=== PATIENT | female | born 1955 | race Caucasian/White ===

== ENCOUNTER 2018-11-25 18:24 | Outpatient (REF) | payer OTHER, SELFPAY ==
--- NOTE | 2018-11-25 14:55 | PAPFT_PTH ---
PATIENT: Ligia Lara LOC: [facility] U#:[id number] AGE/SX: 63/F ROOM: RE11/25/[address]: Suzanne De Guzman V : 1955 BED: DIS: 11/25/2018 SPEC #: [id number] RECD: 11/26/18 13:10 STATUS: [place] REChris #: [id number] LOGAN: 11/25/18 14:[address]: Suzanne De Guzman V DEPT: [facility] Cytology RECD BY: Kiana Garvin Tissues: 1 - CX/ENDOCX FOR PAP SMEARS Procedures: PAP THIN PREP/UVM Screening HPV DNA PROBE Comments: [id number]
== END 2018-11-25 18:44 ==
LOC: NCHCN 18:24
PROVIDERS: PCP Family Medicine; Visit Provider Family Medicine
DX: Z12.4 Encounter for screening for malignant neoplasm of cervix (principal); Z11.51 Encounter for screening for human papillomavirus (HPV); Z01.419 Encounter for gynecological examination (general) (routine) without abnormal findings
CPT/HCPCS: 88142; 87624

== ENCOUNTER 2018-12-04 13:12 | Emergency (ER) | payer OTHER, SELFPAY ==
[2018-12-04 13:15] VITALS: BP 176/89; PULSE 83; RESP 18; TEMP 36.7; O2SAT 99
[2018-12-04 14:24] LABS: ALT 31 U/L (12-78); AST 42 U/L (15-37); Albumin 3.6 g/dL (3.4-5.0); Alkaline Phosphatase 81 U/L (46-116); Anion Gap 6.5 mmol/L (3-11); BUN 16 mg/dL (7-18); Bilirubin, Total 0.3 mg/dL (0.2-1.0); CO2 30.5 mmol/L (21.0-32.0); CREATININE 0.63 mg/dL (0.55-1.02); Calcium 8.9 mg/dL (8.5-10.1); Chloride 102 mmol/L (98-107); Glucose 88 mg/dL (70-100); Magnesium 1.9 mg/dL (1.8-2.4); Potassium 3.9 mmol/L (3.5-5.1); Sodium 139 mmol/L (136-145); Total Protein 7.5 g/dL (6.4-8.2); Troponin I 0.03 ng/mL (0.00-0.06)
[2018-12-04] MEDS: Meclizine 25 MG TAB PO ×2 (14:27→18:29)
--- NOTE | 2018-12-04 14:27 | ED.GENADUL_ITS ---
Discharge Plan Disposition Patient Disposition: HOME Condition: Stable Discharge Details Chief Complaint: Dizzy/Sync Clinical Impression: Benign paroxysmal positional vertigo Primary Care Provider: Suzanne De Guzman V ED Provider: Gino Byers Home Meds and New Rx's Prescriptions: New meclizine 25 mg tablet 25 mg PO Q8H PRN PRN (Reason: dizziness) Qty: 20 RF: 0 Continued montelukast 10 MG tablet 10 mg PO DAILY RF: 0 albuterol sulfate [Ventolin HFA] 8 GM HFA aerosol inhaler 1 - 2 puff Inhalation Q4H PRN RF: 0 venlafaxine 75 MG tablet extended release 24hr 37.5 mg PO DAILY RF: 0 amlodipine 5 MG tablet 5 mg PO DAILY RF: 0 multivitamin 1 EACH capsule 1 ea PO DAILY RF: 0 calcium citrate-vitamin D3 [Citracal + D Maximum] 1 EACH tablet 1 ea PO DAILY RF: 0 Discharge Instructions Instructions: Benign Paroxysmal Positional Vertigo (ED), Dizziness (ED) Additional Instructions: Please take your normally prescribed medication along with new medication as needed and be careful with any driving or operating equipment during dizzy spells. Feel free to return to the emergency department for any new or worsen ing symptoms, persistent symptoms, or change in your symptoms. Follow-up with your primary care provider next week for reassessment and further testing as needed Stand Alone Forms: Physical Therapy Referral Referrals: Suzanne De Guzman MD [Primary Care Provider] - 1 week (for reassessment) Discharge Data Discharge Date/Time-TO BE ENTERED AT DEPARTURE: 12/04/18 18:29 Medical Decision Making <Gino Byers NP - Last Filed: 12/05/18 10:57> Patient presenting to the emergency department for chief complaint of dizziness. Patient states that she has been getting these spells for a while now and they seem to happen after a upper respiratory tract infectious. Patient states that she had a URI approximately a week or so ago and then today while shopping she started to become dizzy. She does state that the symptoms in the past have lasted a couple hours and she mentioned this to her primary care provider who recommended she come to the emergency department when she gets 1 of these spells. Patient states some associated nausea and diaphoresis with these episodes. She denies any chest pain, palpitations, or irregular heartbeat but does state some sensation of movement when these occur. Physical exam shows positive Ironwood-Hallpike with horizontal nystagmus to the left along with hints exam showing positive for test of skew also to the left. Remaining exam is unremarkable for any cardiac, respiratory, or neurological findings. Given patient's stated diaphoresis and dizziness rule out of ACS I feel is warranted but more suspicious of vertigo secondary to inner ear problem. Patient given meclizine pending results. EKG was reviewed with attending physician. Review of old EKG does show T wave inversion in V1 with no inversion in V2. Review of labs is non-diagonal and troponin showing 0.03. This is within normal limits but given that patient does have EKG changes plan on doing second troponin in 3 hours. Patient was agreeable to this plan of care patient reassessed and states no further symptoms of vertigo/dizziness. Further discussion of patient's condition states that she describes dizziness sensation as being on a boat or ship with some loss of balance. Patient was able to ambulate through the emergency department unassisted with no further symptoms. Remainder of labs were reviewed and are nondiagnostic. Review of repeat troponin shows no change. Patient continues to state that she is asymptomatic and has improved significantly. Patient prescribed meclizine and instructed on use. Patient given referral to physical therapy for education on Chiki's maneuver. Given that we were able to obtain EKG during patient's report of dizziness I do not feel that a Holter monitor is required at this time given nondiagnostic findings of EKG during episode. Return precautions were discussed. After discussion of diagnosis and plan of care patient has no further needs, questions, or concerns and states clear understanding to return to the emergency department for any worsening symptoms. <Carlos Roa DO - Last Filed: 12/05/18 07:56> ECG Data Interpretation: EKG 14: 17 Rate 62, intervals normal, sinus rhythm, T wave inversion in V1 and V2, no significant ST elevation, no Q waves, HPI <Gino Byers NP - Last Filed: 12/05/18 10:57> General Mode of arrival: ambulatory . Date/Time Provider Initiated Documentation: 12/04/18 13:18 . Limitations to Documentation: no limitations . Information obtained by: patient and RN notes reviewed . History of Present Illness 63 year old F presents to the emergency department with the chief complaint of dizziness, described as similar to prior episodes, Quality is described as other (denies pain), Patient started experiencing this hour(s) (2) and it has been intermittent. Movement worsens symptoms . Patient did receive the following treatments prior to arrival, none Related Data Home Medications Medication Instructions Recorded Confirmed albuterol sulfate [Ventolin HFA] 1 - 2 puff INHALATION Q4H PRN puff 03/08/13 12/04/18 montelukast 10 mg PO DAILY tab-cap 03/08/13 12/04/18 venlafaxine 37.5 mg PO DAILY tab-cap 03/08/13 12/04/18 amlodipine 5 mg PO DAILY 09/19/13 12/04/18 calcium citrate-vitamin D3 1 ea PO DAILY 12/12/13 12/04/18 [Citracal + D Maximum] multivitamin 1 ea PO DAILY 12/12/13 12/04/18 meclizine 25 mg PO Q8H PRN PRN #20 tab 12/04/18 Previous Rx's Medication Instructions Recorded meclizine 25 mg PO Q8H PRN PRN #20 tab 12/04/18 Allergies Allergy/AdvReac Type Severity Reaction Status Date / Time Penicillins Allergy Unknown Unverified 12/04/18 13:19 lisinopril AdvReac Intermediate COUGH Unverified 12/04/18 13:19 General Stated Complaint: Dizzy/Sync RHYS: 3 Review of Systems <Gino Byers NP - Last Filed: 12/05/18 10:57> Constitutional Denies chills, Denies fever(s), Denies headache(s) and Denies malaise Eyes Denies loss of vision ENT Reports dizziness, Denies headache(s) and Reports nasal congestion Cardiovascular Reports as per HPI, Denies chest pain, Denies chest pain with activity, Reports diaphoresis, Denies syncope, Denies irregular heart rhythm, Denies lightheadedness, Denies palpitations and Denies dyspnea Respiratory Denies cough, Denies hemoptysis and Denies dyspnea Gastrointestinal Denies abdominal pain, Reports nausea and Denies vomiting Neurologic Denies confusion, Reports dizziness, Denies syncope, Denies headache(s) and Denies loss of vision Psychiatric Denies anxiety and Denies confusion Endocrine Denies cold intolerance, Denies heat intolerance and Denies palpitations PFSH <Gino Byers NP - Last Filed: 12/05/18 10:57> Medical History Anxiety disorder BREAST CA (~1998) DIVERTICULOSIS Surgical History Breast, Mastectomy Bilateral (~1999) Colonoscopy - MAC (11/26/16) Oophrectomy, Both Family History Father Personal history of malignant neoplasm Sister Personal history of malignant neoplasm Grandmother Personal history of malignant neoplasm Mother Hypertensive disorder, systemic arterial Personal history of malignant neoplasm Social History Smoking and Tabacco status: Former Tobacco Use Exam <Gino Byers NP - Last Filed: 12/05/18 10:57> Const General: cooperative, healthy appearing, comfortable, no acute distress, not diaphoretic and not ill appearing Nutritional Appearance: average body habitus Orientation: alert, awake and oriented x3 Limitations: mental status not altered HENMT Head: normal to inspection, normocephalic and atraumatic Ears: hearing grossly normal bilaterally, external ears normal and TM's normal bilaterally Eyes Visual Urias: normal visual urias by confrontation Alignment and Position: alignment normal Periorbital: periorbital findings normal Eyelids: eyelids normal Conjunctivae: conjunctivae normal Sclera: sclerae normal Cornea: corneas normal Pupils: PERRL EOM: EOM intact bilaterally and nystagmus Neck Neck: normal visual inspection, full ROM, trachea midline, supple and no anterior neck swelling Thyroid: thyroid normal Carotids: normal carotid upstroke and no bruits Chest Chest: normal inspection of the chest Resp Effort & Inspection: normal respiratory effort and able to speak in complete sentences Auscultation: clear to auscultation bilaterally Cardio Jugular venous pressure: no JVD Palpation: normal PMI Rate: regular rate Rhythm: regular rhythm Heart Sounds: S1 normal, S2 normal, no click, no gallops, no murmurs and no rubs Bruits: no abdominal aortic bruits and no carotid bruits Pulses: radial pulses present bilaterally 2+ GI Inspection: normal to inspection Palpation: soft, no aortic enlargement, no pulsatile masses and nontender Auscultation: normal bowel sounds Skin General skin exam: no rashes or lesions noted Neuro General: alert, awake, oriented x3, tone normal, moves all extremities, no meningeal signs and no focal motor deficits Cranial Nerves: nystagmus horizontal fast component to the left and with left lateral gaze Cognition: normal cognition Speech: speech normal Gait: normal gait and not ataxic Motor: muscle tone normal throughout Sensory Exam: no sensory deficits noted Course <Gino Byers NP - Last Filed: 12/05/18 10:57> Vital Signs Temperature 36.7 C 12/04/18 13:15 Pulse 83 12/04/18 13:15 Respiratory Rate 18 12/04/18 13:15 Blood Pressure 176/89 H 12/04/18 13:15 Pulse Oximetry 99 12/04/18 13:15 Temperature 36.7 C 12/04/18 13:15 Temperature Source Skin 12/04/18 13:15 Pulse 83 12/04/18 13:15 Respiratory Rate 18 12/04/18 13:15 Respiratory Effort Non-Labored 12/04/18 13:18 Blood Pressure 176/89 H 12/04/18 13:15 Pulse Oximetry 99 12/04/18 13:15 Pain Level 0 12/04/18 13:15
[2018-12-04 14:28] VITALS: RESP 16
[2018-12-04 14:31] LABS: Abs Immature Grans 0.02 k/cumm (0.0-0.09); Absolute Basophil Count 0.03 k/cumm (0.0-0.2); Absolute Lymphocyte Count 2.94 k/cumm (1.2-3.4); Absolute Monocyte Count 0.72 k/cumm (0.11-0.7); Absolute Neutrophil Count 3.88 k/cumm (1.2-6.7); Basophils % 0.4; Eosinophils % 2.6; HCT 35.7 % (36.0-46.0); Immature Grans % 0.3; Lymphocytes % 37.7; Mean Corp. HGB Concentration 33.6 g/dL (32.0-36.0); Mean Corpuscular Hemoglobin 27.6 pg (27.0-33.0); Mean Corpuscular Volume 82.3 fL (80-95); Monocytes % 9.2; Neutrophils % 49.8; Platelet Count 269 x1000/uL (130-400); RBC 4.34 m/cumm (4.00-5.20); RBC Distribution Width 13.4 % (11.7-14.6); White Blood Cell Count 7.79 k/cumm (4.4-10.8)
[2018-12-04 17:12] LABS: Troponin I 0.03 ng/mL (0.00-0.06)
[2018-12-04 18:24] VITALS: BP 136/76; PULSE 61; RESP 16; TEMP 36.6; O2SAT 96
[2018-12-04 18:30] VITALS: BP 136/76; PULSE 61; RESP 16; TEMP 36.6; O2SAT 96
--- NOTE | 2018-12-06 08:55 | PDOC.ERCMPRO ---
Care Management Progress Note 12/04-Jeff SENA requested assistance with a PCP (Gege) f/u in one week for dizziness/vertigo. Referral faxed to [facility] this am.
== END 2018-12-04 18:29 | disposition home or self-care (01) ==
PROVIDERS: Emergency Provider Nurse Practitioner Family; PCP Family Medicine
DX: H81.10 Benign paroxysmal vertigo, unspecified ear (principal); R11.2 Nausea with vomiting, unspecified; I10 Essential (primary) hypertension
CPT/HCPCS: 36415; 80053; 93005; 99283; 83735; 84484; 85025; 93010

== ENCOUNTER 2018-12-14 13:30 | Outpatient (CLI) | payer OTHER, SELFPAY ==
--- NOTE | 2019-01-12 09:03 | CER_ITS ---
PREVENTICE MONITOR DEVICE INTERPRETATION DATE OF DICTATION January 12, 2019 INDICATION Dizziness. REQUESTING PROVIDER Suzanne De Guzman M.D. FINDINGS Monitoring period 30 days. Only 9 days and 21 hours of data available for review. Last echo: Last stress test: Last cardiac catheterization: Last lipid profile: Available for interpretation. The baseline sinus rhythm. Average heart rate 78 beats per minute, range 58 to 105 beats per minute. No tachyc- or bradycarrhythmias There were no patient events. FINAL INTERPRETATION Normal study. Toro Funez M.D. NINA/reyna T - 01/12/2019
== END 2018-12-14 13:50 ==
PROVIDERS: PCP Family Medicine; Visit Provider Specialist/Technologist Athletic Trainer
DX: R42 Dizziness and giddiness (principal)
CPT/HCPCS: 93270

== ENCOUNTER 2019-05-25 13:27 | Emergency (ER) | payer OTHER, SELFPAY ==
[2019-05-25] VITALS (33 sets, daily range): BP systolic 127–165; BP diastolic 61–114; PULSE 67–86; RESP 12–23; TEMP 36.5; O2SAT 95–99
--- NOTE | 2019-05-25 13:43 | DI.RAD_ITS ---
SYMPTOMS/DIAGNOSIS: DIZZINESS, ? ACUTE DISEASE PA AND LATERAL CHEST: The heart is normal in size. The lungs are clear. The mediastinal structures and pleura appear intact. CONCLUSION: Normal chest.
--- NOTE | 2019-05-25 13:45 | W.ED.GENAD ---
Discharge Plan Disposition Patient Disposition: HOME Condition: Improving Discharge Details Chief Complaint: Dizzy/Sync Clinical Impression: Vertigo, Nausea and vomiting Primary Care Provider: Suzanne De Guzman V ED Provider: Maria Esther Jones Home Meds and New Rx's Prescriptions: New ondansetron HCl [Zofran] 4 mg tablet 4 mg PO Q8H PRN (Reason: nausea and vomiting) Qty: 7 RF: 0 meclizine 12.5 mg tablet 12.5 mg PO TID PRN (Reason: dizziness) Qty: 10 RF: 0 Continued montelukast 10 MG tablet 10 mg PO DAILY RF: 0 albuterol sulfate [Ventolin HFA] 8 GM HFA aerosol inhaler 1 - 2 puff Inhalation Q4H PRN RF: 0 venlafaxine 75 MG tablet extended release 24hr 37.5 mg PO DAILY RF: 0 amlodipine 5 MG tablet 5 mg PO DAILY RF: 0 multivitamin 1 EACH capsule 1 ea PO DAILY RF: 0 calcium citrate-vitamin D3 [Citracal + D Maximum] 1 EACH tablet 1 ea PO DAILY RF: 0 meclizine 25 mg tablet 25 mg PO Q8H PRN PRN (Reason: dizziness) Qty: 20 RF: 0 Discharge Instructions Instructions: Vertigo (ED), Acute Nausea and Vomiting (ED) Additional Instructions: Drink plenty of fluids and get plenty of rest. Take the Zofran as needed and directed for any nausea or vomiting. Take the meclizine as needed and directed for dizziness. Follow-up with your primary care doctor for reevaluation. Return to the emergency department if you develop any worsening or new concerning symptoms. Discharge Data Discharge Physician: Maria Esther Jones Medical Decision Making [id number] --63-year-old female with a history of vertigo, breast cancer with bilateral mastectomy and lateral who nephrectomy who presents with spinning sensation and vomiting that started this morning and is worse with any head or body movement. EKG on arrival notes a rate of 79, sinus with T wave inversion in V2 which is seen in previous EKG and no acute ST ischemic changes and no acute change compared to EKG December 2018. Normal ENT exam. No focal deficits. Patient given IV fluids and Zofran on arrival and appears improved. Still complaining of some dizziness. Will give a dose of meclizine continue IV fluids do p.o. challenge and reassess. Differential diagnosis includes vertigo, dehydration, electrolyte abnormality. She denies any chest pain or shortness of breath so doubt ACS or arrhythmia. She has no focal deficits, complaint of visual changes or headache, so doubt central process. 1600 --labs and imaging reviewed and unremarkable. Normal white blood cell count. Normal electrolytes. Troponin negative. Urinalysis notes blood but no infection. Chest x-ray negative. Patient feels much better and is requesting to go home. She denies any complaint of nausea or dizziness. Discussed with patient that her presentation appears consistent with vertigo. Do not see an indication for any CT head imaging but she was offered to this but declined. She is advised to drink plenty of fluids, get plenty of rest. She is advised to follow-up with her primary care doctor for reevaluation and to return here anytime if worse. Medical Records Medical records reviewed: Yes I reviewed the patient's medical records. Imaging Data Radiologic Study: Radiologist's impression: PA AND LATERAL CHEST: The heart is normal in size. The lungs are clear. The mediastinal structures and pleura appear intact. CONCLUSION: Normal chest. Lab Data Lab results reviewed: Yes I reviewed the patient's lab results. Laboratory Tests Range/Units 05/25/19 05/25/19 05/25/19 14:05 14:14 14:14 WBC (4.4-10.8) k/cumm 10.29 RBC (4.00-5.20) m/cumm 4.45 Hgb (12.0-15.5) g/dL 12.5 Hct (36.0-46.0) % 36.9 MCV (80-95) fL 82.9 MCH (27.0-33.0) pg 28.1 MCHC (32.0-36.0) g/dL 33.9 RDW (11.7-14.6) % 13.3 Plt Count (130-400) x1000/uL 300 MPV (8.0-11.0) fL 10.3 Immature Gran % 0.2 Neutrophils % 51.0 Lymphocytes % 38.2 Monocytes % 8.6 Eosinophils % 1.7 Basophils % 0.3 Absolute Neutrophils (1.2-6.7) k/cumm 5.26 Absolute Lymphocytes (1.2-3.4) k/cumm 3.93 H Absolute Monocytes (0.11-0.7) k/cumm 0.88 H Absolute Eosinophils (0.0-0.7) k/cumm 0.17 Absolute Basophils (0.0-0.2) k/cumm 0.03 Sodium (136-145) mmol/L 136 Potassium (3.5-5.1) mmol/L 3.8 Chloride (98-107) mmol/L 101 Carbon Dioxide (21.0-32.0) mmol/L 23.1 Anion Gap (3-11) mmol/L 11.9 H BUN (7-18) mg/dL 20 H Creatinine (0.55-1.02) mg/dL 0.78 Estimated GFR/1.73 m2 (mL/min/1.73m2) >= 60.00 Glucose (70-100) mg/dL 95 Calcium (8.5-10.1) mg/dL 9.0 Magnesium (1.8-2.4) mg/dL 1.9 Total Bilirubin (0.2-1.0) mg/dL 0.4 AST (15-37) U/L 26 ALT (12-78) U/L 29 Alkaline Phosphatase (46-116) U/L 85 Troponin I (0.00-0.06) ng/mL < 0.05 Total Protein (6.4-8.2) g/dL 8.0 Albumin (3.4-5.0) g/dL 4.0 Urine Color (Yellow) Yellow Urine Clarity (Clear) Clear Urine pH (5-8) 5.5 Ur Specific [place] (1.005-1.025) 1.025 Urine Protein (Negative) mg/dL Negative Urine Ketones (Negative) mg/dL Negative Urine Blood (Negative) Moderate H Urine Nitrite (Negative) Negative Urine Bilirubin (Negative) Negative Urine Urobilinogen (Up TO 0.2) EU/dL 0.2 Ur Leukocyte Esterase (Negative) Negative Urine RBC (0-2) 10-20 H Urine WBC (0-5) HPF 0-2 Ur Epithelial Cells (Negative) HPF Moderate Urine Crystals (Negative) HPF Negative Urine Bacteria (Negative) HPF Rare Urine Casts (Negative) LPF Negative Urine Mucus (Negative) Trace Ur Culture Indicated? No/sq. contamination Urine Glucose (Negative) mg/dL Negative ECG Data Attestation: I personally reviewed and interpreted this ECG (s) as follows: Interpretation: Rate of 79, sinus, T wave inversion in V2. There is no acute ST elevation or depression. There is no acute change compared to old EKG December 2018. [place] 168. QTc 481. HPI General Mode of arrival: ambulatory. Date/Time Provider Initiated Documentation: 05/25/19 13:42. Limitations to Documentation: no limitations. Information obtained by: patient. HPI Narrative: Patient is a 61-year-old female with a history of vertigo who presents with dizziness and spinning sensation that started today while standing and talking at work. 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 She states the symptoms are worse with any movement of her body or head. She states after this she ate lunch and then sat down and vomited twice which consisted of food. She states she had a similar episode to this in December for which she was seen in the emergency department and given meclizine as well as a prescription and felt much better was discharged home. She denies any fever, headache, visual changes, chest pain, shortness of breath, abdominal pain, urinary symptoms or unilateral numbness or weakness. Related Data Home Medications Medication Instructions Recorded Confirmed albuterol sulfate [Ventolin HFA] 1 - 2 puff INHALATION Q4H PRN puff 03/08/13 05/25/19 montelukast 10 mg PO DAILY tab-cap 03/08/13 05/25/19 venlafaxine 37.5 mg PO DAILY tab-cap 03/08/13 05/25/19 amlodipine 5 mg PO DAILY 09/19/13 05/25/19 calcium citrate-vitamin D3 1 ea PO DAILY 12/12/13 05/25/19 [Citracal + D Maximum] multivitamin 1 ea PO DAILY 12/12/13 05/25/19 meclizine 25 mg PO Q8H PRN PRN #20 tab 12/04/18 05/25/19 meclizine 12.5 mg PO TID PRN #10 tab 05/25/19 ondansetron HCl [Zofran] 4 mg PO Q8H PRN #7 tab 05/25/19 Previous Rx's Medication Instructions Recorded meclizine 25 mg PO Q8H PRN PRN #20 tab 12/04/18 meclizine 12.5 mg PO TID PRN #10 tab 05/25/19 ondansetron HCl [Zofran] 4 mg PO Q8H PRN #7 tab 05/25/19 Allergies Allergy/AdvReac Type Severity Reaction Status Date / Time Penicillins Allergy Unknown Unverified 05/25/19 13:39 lisinopril AdvReac Intermediate COUGH Unverified 05/25/19 13:39 General Stated Complaint: Dizzy/Sync RHYS: 2 Review of Systems Review of Systems All systems reviewed & are unremarkable except as noted in HPI and below Constitutional Reports as per HPI, Denies chills and Denies fever(s) Eyes Denies blurry vision ENT Reports dizziness, Denies sore throat and Denies throat swelling Cardiovascular Denies chest pain and Denies dyspnea Respiratory Denies cough and Denies dyspnea Gastrointestinal Denies abdominal pain, Denies diarrhea and Reports vomiting Genitourinary Denies hematuria and Denies dysuria Musculoskeletal Denies back pain and Denies numbness Integumentary/Breasts Denies lesions and Denies rash Neurologic Reports dizziness, Denies focal weakness and Denies numbness Allergic/Immunologic Denies throat swelling PFSH Medical History Anxiety disorder BREAST CA (~1998) DIVERTICULOSIS Surgical History Breast, Mastectomy Bilateral (~1999) Colonoscopy - MAC (11/26/16) Oophrectomy, Both Family History Father Personal history of malignant neoplasm Sister Personal history of malignant neoplasm Grandmother Personal history of malignant neoplasm Mother Hypertensive disorder, systemic arterial Personal history of malignant neoplasm Social History Smoking/Tobacco Use Status: Former Tobacco Use Alcohol Intake: never Drug use: Never Do you feel safe at home: Yes Do you feel safe in your relationship?: Yes Exam Const General: cooperative and healthy appearing Orientation: alert and awake HENMT Head: normal to inspection Ears: hearing grossly normal bilaterally, external ears normal and TM's normal bilaterally General nose exam: external nose normal Face and sinus: normal facial exam Mouth: oral mucosae normal Teeth and gingiva: dentition normal Throat: posterior oropharynx normal Eyes General: appearance normal, both eyes and all related structures Eyelids: eyelids normal Pupils: PERRL EOM: EOM intact bilaterally Neck Neck: normal visual inspection Lymphatic: no lymphadenopathy noted Chest Chest: normal inspection of the chest Resp Effort & Inspection: normal respiratory effort and able to speak in complete sentences Auscultation: clear to auscultation bilaterally Cardio Rate: regular rate Rhythm: regular rhythm GI Inspection: normal to inspection Palpation: soft, not firm, no guarding, no hepatosplenomegaly, no masses and nontender Auscultation: normal bowel sounds Back/Spine/Pelvis Back: no CVA tenderness Skin General skin exam: no rashes or lesions noted Neuro General: alert, awake, oriented x3 and gait normal Cranial Nerves: CN's II-XI intact bilaterally Cognition: normal cognition Speech: speech normal Gait: normal gait Motor: muscle tone normal throughout and strength 5/5 throughout Sensory Exam: no sensory deficits noted Extrem General: normal to inspection, full ROM and normal capillary refill Psych Appearance: grossly normal Mental Status: mental status grossly normal Speech and Movement: speech and movement normal Affect: normal affect Thought Process: normal Course Vital Signs Temperature 97.7 F 05/25/19 13:31 Pulse 86 05/25/19 13:31 Respiratory Rate 14 05/25/19 13:31 Blood Pressure 165/79 H 05/25/19 13:31 Pulse Oximetry 96 05/25/19 13:31 Temperature 97.7 F 05/25/19 13:31 Temperature Source Skin 05/25/19 13:31 Pulse 86 05/25/19 13:31 Respiratory Rate 14 05/25/19 13:31 Respiratory Effort 05/25/19 13:36 Blood Pressure 165/79 H 05/25/19 13:31 Pulse Oximetry 96 05/25/19 13:31 Oxygen Delivery Method Room Air 05/25/19 13:31 Oxygen Flow Rate 0 05/25/19 13:31 Pain Level 0 05/25/19 13:31
[2019-05-25] MEDS: Normal Saline 1,000 ML 1000 ML IV ×2 (14:05→14:48)
[2019-05-25 14:10] LABS: Bilirubin Negative (Negative); Blood Moderate (Negative); Clarity Clear (Clear); Glucose Negative (Negative); Ketones Negative (Negative); Leukocyte Esterase Negative (Negative); Nitrite Negative (Negative); Specific Gravity 1.025 (1.005-1.025); Urobilinogen 0.2 EU/dL (Up TO 0.2); pH 5.5 (5-8)
[2019-05-25] MEDS: Ondansetron 4 MG/2 ML VIAL (14:10)
[2019-05-25 14:22] LABS: Abs Immature Grans 0.02 k/cumm (0.0-0.09); Absolute Basophil Count 0.03 k/cumm (0.0-0.2); Absolute Eosinophil Count 0.17 k/cumm (0.0-0.7); Absolute Lymphocyte Count 3.93 k/cumm (1.2-3.4); Absolute Monocyte Count 0.88 k/cumm (0.11-0.7); Absolute Neutrophil Count 5.26 k/cumm (1.2-6.7); Basophils % 0.3; Eosinophils % 1.7; HCT 36.9 % (36.0-46.0); HGB 12.5 g/dL (12.0-15.5); Immature Grans % 0.2; Lymphocytes % 38.2; Mean Corp. HGB Concentration 33.9 g/dL (32.0-36.0); Mean Corpuscular Hemoglobin 28.1 pg (27.0-33.0); Mean Corpuscular Volume 82.9 fL (80-95); Mean Platelet Volume 10.3 fL (8.0-11.0); Monocytes % 8.6; Platelet Count 300 x1000/uL (130-400); RBC 4.45 m/cumm (4.00-5.20); RBC Distribution Width 13.3 % (11.7-14.6); White Blood Cell Count 10.29 k/cumm (4.4-10.8)
[2019-05-25 14:22] LABS: Bacteria Rare HPF (Negative); C & S Indicated? No/Sq. Contamination; Casts Negative LPF (Negative); Crystals Negative HPF (Negative); Epithelial Cells Moderate HPF (Negative); Mucus Trace (Negative); WBC 0-2 HPF (0-5)
[2019-05-25 14:41] LABS: ALT 29 U/L (12-78); AST 26 U/L (15-37); Alkaline Phosphatase 85 U/L (46-116); Anion Gap 11.9 mmol/L (3-11); BUN 20 mg/dL (7-18); Bilirubin, Total 0.4 mg/dL (0.2-1.0); CO2 23.1 mmol/L (21.0-32.0); CREATININE 0.78 mg/dL (0.55-1.02); Chloride 101 mmol/L (98-107); Glucose 95 mg/dL (70-100); Magnesium 1.9 mg/dL (1.8-2.4); Potassium 3.8 mmol/L (3.5-5.1); Sodium 136 mmol/L (136-145)
[2019-05-25 14:47] LABS: Troponin I < 0.05 ng/mL (0.00-0.06)
[2019-05-25] MEDS: Meclizine 25 MG TAB PO (14:48)
== END 2019-05-25 16:42 | disposition home or self-care (01) ==
PROVIDERS: Emergency Provider Physician Assistant; PCP Family Medicine
DX: R42 Dizziness and giddiness (principal); R11.2 Nausea with vomiting, unspecified
CPT/HCPCS: 36415; 36416; 80053; 82962; 93005; 96361; 96374; 99285; 71046; 81003; 81015; 83735; 84484; 85025; 93010; 99284; J2405

== ENCOUNTER 2019-09-08 17:22 | Outpatient (REF) | payer OTHER, SELFPAY ==
--- NOTE | 2019-09-08 15:44 | UVULA_PTH ---
PATIENT: Ligia Lara LOC: [facility] U#:[id number] AGE/SX: 64/F ROOM: RE09/08/[address]: Dalton Love MD : 1955 BED: DIS: 09/08/2019 SPEC #: [id number] RECD: 09/08/19 18:32 STATUS: [place] REQ #: [id number] LOGAN: 09/08/19 15:[address]: Dalton Love DEPT: Surgical Specimen RECD BY: Kiana Garvin ENTERED: 09/08/19 18:32 SP TYPE: UVULA OTHR DR: Suzanne De Guzman V Tissues: 1 - UVULA Procedures: GROSS AND MICRO LEVEL 3 Comments: [id number]
== END 2019-09-08 17:42 ==
LOC: LBN 17:22
PROVIDERS: PCP Family Medicine; Visit Provider Otolaryngology
DX: D10.39 Benign neoplasm of other parts of mouth (principal)
CPT/HCPCS: 88304

== ENCOUNTER 2021-07-22 02:57 | Outpatient (CLI) | payer OTHER, SELFPAY ==
[2021-07-22 07:38] LABS: HCT 37.6 % (36.0-46.0); HGB 12.3 g/dL (11.2-15.7); MCH 27.8 pg (27.0-33.0); MCHC 32.7 % (32.0-36.0); MCV 85.1 fL (80-95); MPV 9.6 fL (8.0-11.0); Platelet Count 244 10^3/uL (130-400); RBC 4.42 10^6/uL (3.93-5.22); RDW 12.8 % (11.7-14.6); RDW-SD 39.8 fL; WBC 6.74 10^3/uL (4.4-10.8)
[2021-07-22 08:38] LABS: ALT 27 U/L (14-59); AST 21 U/L (15-37); Albumin 3.5 g/dL (3.4-5.0); Alkaline Phosphatase 80 U/L (46-116); Anion Gap 8.3 mmol/L (3-11); BUN 22 mg/dL (7-18); Bilirubin, Total 0.3 mg/dL (0.2-1.0); CO2 25.7 mmol/L (21.0-32.0); CREATININE 0.7 mg/dL (0.55-1.02); Calcium 8.9 mg/dL (8.5-10.1); Calculated LDL 115 mg/dL (<100); Chloride 107 mmol/L (98-107); Cholesterol 173 mg/dL (<200); Glucose 92 mg/dL (74-106); HDL Cholesterol 47 mg/dL (40-60); Potassium 4.8 mmol/L (3.5-5.1); Sodium 141 mmol/L (136-145); Total Protein 6.7 g/dL (6.4-8.2); Triglyceride 55 mg/dL (<150)
== END 2021-07-22 02:58 | disposition home or self-care (01) ==
LOC: LBO 02:57
PROVIDERS: PCP Family Medicine; Visit Provider Family Medicine
DX: Z00.00 Encounter for general adult medical examination without abnormal findings (principal); I10 Essential (primary) hypertension
CPT/HCPCS: 36415; 80053; 80061; 85027

== ENCOUNTER 2021-07-25 02:06 | Outpatient (CLI) | payer OTHER, SELFPAY ==
--- NOTE | 2021-07-25 | DI.DEXA_ITS ---
Exam(s) XR DEXA BONE DENSITY W/WO RAFIQ EXAM: XR DEXA BONE DENSITY W/WO RAFIQ CLINICAL HISTORY: SCREENING FOR OSTEOPOROSIS, [facility],Z00.00,Z78.0 TECHNIQUE: Routine DEXA evaluation of the lumbar spine, hip, or forearm. COMPARISON: Prior DXA scans reviewed, most recent being December 2015 FINDINGS: Performed on a HoloAQS unit. Lateral image: No compression fracture evident. Lumbar Spine total T-score: -0.6 . Prior 2016 reading was -0.7 Hip total T-score:-0.4. Prior 2016 reading was -0.3 Independent reading at the level of the femoral neck yields at T-score of -0.6. Forearm total T-score: IMPRESSION: Bone mineral density measures in the normal range. Fracture risk is low. Note: Any spine fracture indicates 5x risk for subsequent spine fracture and 2x risk for subsequent h ip fracture. World Health Organization criteria for BMD interpretation classify patients: Normal...... T- Score at or above -1.0 Osteopenic... T- Score between -1.0 and -2.5 Osteoporosis... T-Score at or below -2.5
== END 2021-07-25 02:26 ==
PROVIDERS: PCP Family Medicine; Visit Provider Family Medicine
DX: Z00.00 Encounter for general adult medical examination without abnormal findings (principal); Z13.820 Encounter for screening for osteoporosis; Z78.0 Asymptomatic menopausal state
CPT/HCPCS: 77080

== ENCOUNTER 2021-12-27 03:17 | Outpatient (CLI) | payer OTHER, SELFPAY ==
[2021-12-27 11:48] LABS: Source Nasal/Nares
[2021-12-27 14:25] LABS: COVID-19 PCR Negative (Negative)
== END 2021-12-27 03:18 | disposition home or self-care (01) ==
LOC: LBO 03:17
PROVIDERS: PCP Family Medicine; Visit Provider Surgery
DX: Z20.822 Contact with and (suspected) exposure to COVID-19 (principal)
CPT/HCPCS: 87635

== ENCOUNTER 2021-12-30 06:58 | Day surgery (SDC) | payer OTHER, SELFPAY ==
--- NOTE | 2021-12-30 06:54 | W.COLOREPORT ---
Colonoscopy Report Date of procedure: 12/30/21 Pre-op diagnosis general: Colon Cancer Screening and Hx of colon polyps Post-op diagnosis procedure note: same (polyps and mild mcintyre-diverticulosis) Procedure: Colonoscopy with polypectomy Surgeon: Cherry Rojas Anesthesia Type: General:No Airway Estimated blood loss (mL): 3 Pathology: other (Transverse polyp, rectal polyps x3) Complications: None Disposition: same day Indications: The patient is here for Colonoscopy pre-op. Her last screening was in 2017 and was remarkable for tubular adenoma. She has no family history of colon cancer. She has not had any bowel habit changes. -Discussed colonoscopy bowel prep as well as the procedure. Discussed possible complications of the procedure to include bleeding, pain, perforation, missed small lesion/polyp, sore throat, aspiration and adverse reaction to the medications. Questions were answered to patient?s satisfaction. No guarantees were implied or given.? Prep: Miralax/Dulcolax Procedure Start Time: 08:12 Procedure End Time: 08:42 Retraction Time: 20 minutes Findings: 4 small sessile polyps mild mcintyre-diverticulosis Procedure Description: After informed consent was obtained the patient was taken to the procedure room and placed in a left decubitous position. Monitors were applied and a time out was done. The patients name, date of , procedure, allergies to medications and metal in their body was reviewed. The patient was then sedated. Once sedated and comfortable a rectal exam was done. External exam was normal. Internal exam revealed a normal sphincter tone and no palpable masses. The scope was then introduced and retro-flexed. No internal hemorrhoids, polyps or masses were identified on retro-flexion. The scope was then advanced to the cecum without difficulty. The ileocecal vlave and appendiceal orifice were identified. The prep was adequate. The scope was then slowly retracted over 20 minutes back into the rectum. Polyps were removed with cold forceps in the Transverse colon, and rectum x3. There was mild mcintyre-diverticulosis noted. The scope was removed and the patient was woken up and taken back to Same day surgery in stable condition. The patient tolerated the procedure well and there were no immediate complications. Follow up: The patient should follow up in 5 years unless they develop changes in bowel habits or other new gastrointestinal complaints.
--- NOTE | 2021-12-30 06:58 | W.PM.DSUDISC ---
Discharge Plan Disposition Patient Disposition: HOME Condition: Good Discharge Details Reason For Visit: Colonoscopy Attending Provider: Cherry Rojas Primary Care Provider: Suzanne De Guzman V Home Meds and New Rx's Prescriptions: Continued clobetasol [Temovate] 0.05 % ointment 1 applic topical BID 14 Days Qty: 60 1RF albuterol sulfate [Ventolin HFA] 8 GM HFA aerosol inhaler 1 - 2 puff Inhalation Q4H PRN 0RF Label Comments: pt has not used in a while 08/22/16 venlafaxine 75 mg tablet extended release 24hr 75 mg PO HS 0RF montelukast 10 mg tablet 10 mg PO HS Qty: 90 4RF amlodipine 5 mg tablet 10 mg PO HS 0RF multivitamin 1 EACH capsule 1 ea PO HS 0RF calcium citrate-vitamin D3 [Citracal + D Maximum] 1 EACH tablet 1 ea PO HS 0RF simvastatin 5 mg tablet 5 mg PO HS 0RF Discharge Instructions Instructions: Diverticulosis (DC), Colorectal Polyps (DC) Additional Instructions: Findings: 4 small polyps mild diverticulosis Follow up: 5 years Please call if you develop: fevers >101.5 Nausea or Vomiting Abdominal pain that is not transient Rectal bleeding that is more then a tbsp A hard abdomen and inability to pass gas DAY SURGERY UNIT POST ENDOSCOPY INSTRUCTIONS Instructions for everyone who is given Anesthesia: For your safety, please do the following for the next 24 Hours: a. Do not drive or operate dangerous equipment b. Do not drink alcohol beverages or use any recreational drugs for the first 24 hours or while taking pain medications. The medications in your body may have a reaction that can be dangerous. c. Do not make any important decisions or sign any important papers 1. Generally there are no restrictions on your activity after a day or so has gone by, but you may feel a bit fatigued for a few days. 2. After you arrive home you may have a light meal and return to a normal diet as you can tolerate it without feeling sick to your stomach. 3. After surgery, you may feel pain or discomfort. This should be only transient, but if it persists please contact your doctor. 4. If there are any questions regarding the findings of your procedure, please feel free to contact your doctor. 6. If you are unable to contact your doctor with a problem, contact the hospital at [phone]. 7. Continue all your regular medications unless directed otherwise. I understand the above instructions and have no questions. Signature of Patient or Responsible Adult Escort Date/Time Name of Responsible Adult Escort Signature of Nurse Date/Time Activity:: Activity as Tolerated Diet:: As Tolerated Discharge Orders Discharge Orders: Discharge Order (Routine); Ordered 12/30/21 Ordered By: Cherry Rojas
[2021-12-30 07:12] VITALS: BP 126/70; PULSE 72; RESP 16; TEMP 35.7; O2SAT 97
[2021-12-30] MEDS: Lactated Ringers 1,000 ML 80 ML IV (07:29)
--- NOTE | 2021-12-30 07:38 | W.ANESPRE ---
General Info Date of Service Date Performed: 12/30/21 Height: 5 ft 9.75 in Weight: 85.502 kg Body Mass Index (BMI): 27.2 Surgical Procedure: Operation Date: 12/30/21 08:20 Proposed Procedure Side Surgeon yohannes Rojas MD Meds Allergies and Home Medications Allergies Allergy/AdvReac Type Severity Reaction Status Date / Time Penicillins Allergy Unknown Other (See Unverified 12/30/21 07:11 Comment) lisinopril AdvReac Intermediate COUGH Unverified 12/30/21 07:11 Home Medication Medication Instructions Recorded albuterol sulfate 90 mcg/actuation 1 - 2 puff INHALATION Q4H PRN puff 03/08/13 aerosol inhaler (Ventolin HFA) calcium citrate 315 mg 1 ea PO HS 12/12/13 calcium-vitamin D3 6.25 mcg (250 unit) tablet (Citracal + Vitamin D Maximum) multivitamin 1 ea PO HS 12/12/13 amlodipine 5 mg tablet 10 mg PO HS tab 04/19/21 clobetasol 0.05 % topical ointment 1 applic TOPICAL BID 14 Days #60 g 04/19/21 (Temovate) venlafaxine 75 mg tablet,extended 75 mg PO HS tab-cap 04/19/21 release 24 hr montelukast 10 mg tablet 10 mg PO HS #90 tab-cap 12/26/21 simvastatin 5 mg tablet 5 mg PO HS 12/26/21 Current Visit Medications: Current Medications Generic Name Dose Route Start Last Admin Trade Name Freq PRN Reason Stop Dose Admin Hyoscyamine Sulfate 0.125 mg 12/30/21 06:59 Hyoscyamine 0.125 Mg Sl/Oral/Chew SL DIRECTED PRN Ringer's Solution 1,000 mls @ 80 mls/hr 12/30/21 06:00 12/30/21 07:29 IV 01/26/22 23:59 80 mls/hr INFUSION JAYASHREE Administration IV Miscellaneous Supplies 1 each 12/30/21 06:00 Iv Access IV 01/26/22 23:59 DIRECTED JAYASHREE Ondansetron HCl 4 mg 12/30/21 06:59 Ondansetron 4 Mg/2 Ml Vial IVP Q4H PRN PRN Nausea / Vomiting Sodium Chloride 0 ml 12/30/21 06:00 Normal Saline Flush 10 Ml Syr IV 01/26/22 23:59 PRN PRN Sodium Chloride 0 ml 12/30/21 06:00 Normal Saline 10 Ml Vial IJ 01/26/22 23:59 DIRECTED PRN Sterile Water 0 ml 12/30/21 06:00 Water,Injection,Sterile 10 Ml Vial IJ 01/26/22 23:59 DIRECTED PRN PFSH Active Problems Active Problems: Problem Status Onset Code Screening for colon cancer Z12.11 Tubular adenoma of colon 11/26/16 D12.6 Medical History Medical History Anxiety disorder BREAST CA (~1998) DIVERTICULOSIS Encounter for screening for other viral diseases History of breast cancer Mixed stress and urge urinary incontinence Palatal mass Papilloma of oral cavity Vaginal atrophy Vulvar irritation Surgical History Surgical History Breast, Mastectomy Bilateral (~1999) Colonoscopy - MAC (11/26/16) Oophrectomy, Both Tobacco Smoking/Tobacco Use Status: Former Tobacco Use Alcohol Alcohol Intake: never Substance Use Substance use: Never Substance use type: does not use Vital Signs and Lab Results Vital Signs Most Recent Vital Signs in EMR: Most Recent Vital Signs Temp Pulse Resp BP Pulse Ox 35.7 C L 72 16 126/70 97 12/30/21 07:12 12/30/21 07:12 12/30/21 07:12 12/30/21 07:12 12/30/21 07:12 Lab Results Blood Type / Crossmatch: No Data to Display Complete Blood Count: No Data to Display Complete Metabolic Panel: No Data to Display Liver Function Panel: No Data to Display Coagulation Panel: No Data to Display Cardiac Panel: No Data to Display Arterial Blood Gas: No Data to Display Venous Blood Gas: No Data to Display Pancreas Panel: No Data to Display Thyroid Panel: No Data to Display Infectious Disease: Coronavirus (COVID-19)(PCR) Negative (Negative) 12/27/21 08:43 12/27/21 Coronavirus 2019 Source Nasal/Nares 12/27/21 08:43 12/27/21 Blood Cultures: No Data to Display Toxicology Panel: No Data to Display Anesthesia Assessment and Plan Anesthesia History Personal History: PONV Family History: No Family History of Anesthesia Complications Exercise Tolerance Exercise Tolerance: Metabolic Equivalents>4 Pertinent Negatives Pertinent Negatives: No Symptoms of GERD, No Major Cardiovascular Symptoms or Complaints, No Major Pulmonary Symptoms or Complaints and No History of CVA/TIA Cardiac & Pulmonary Exam Cardiac Exam: Normal S1/S2 Heart Sounds Pulmonary Exam: Clear Bilateral Breath Sounds Implantable Cardiac Device Does patient have a Pacemaker or an ICD?: No Airway Exam Known Difficult Airway: No Mallampati Class: 2 Mouth Opening: Normal (> 3cm) Thyromental Distance: Greater than 3 cm Neck Range of Motion: Full ROM Neck Circumference: Normal Teeth Condition: Normal Dentition ASA Classification ASA Score: ASA 2 Emergency Case?: No NPO Status NPO Status: NPO Clears >2 hours, Solids >8 hours Anesthesia Plan Resuscitation Status: Full Code Anesthesia Technique: General Anesthesia Airway Planned: Natural Airway Monitors Used: Standard Monitors Preoperative Comments:: Hx of PONV with longer surgeries, inhaler use needed only when exposed to animal dander, snoring has improved with allergy med, no apnea noted, bilateral mastectomy, prefers IV/BP on right side.
[2021-12-30 07:40] VITALS: BMI 27.2
--- NOTE | 2021-12-30 08:28 | BOWEL_PTH ---
PATIENT: Ligia Lara LOC: [facility] U#:[id number] AGE/SX: 66/F ROOM: RE12/30/[address]: Cherry Rojas MD : [id number] BED: DIS: 12/30/2021 SPEC #: [id number] RECD: 12/30/21 11:51 STATUS: [place] RE #: [id number] LOGAN: 12/30/21 08:[address]: Cherry Rojas DEPT: Surgical Specimen RECD BY: Kiana Garvin ENTERED: 12/30/21 11:52 SP TYPE: Bowel OTHR DR: Suzanne De Guzman V Tissues: 1 - BIOPSY BOWEL 2 - BIOPSY BOWEL Procedures: GROSS AND MICRO LEVEL 4 Comments: [id number]
[2021-12-30 08:54] VITALS: BP 80/45; PULSE 66; RESP 16; TEMP 36.3; O2SAT 97
[2021-12-30 09:15] VITALS: BP 116/64; PULSE 65; RESP 16; TEMP 36.1; O2SAT 98
--- NOTE | 2021-12-30 09:56 | W.ANESPOSTOP ---
Postoperative Evaluation Date, Time and Location Date Performed: 12/30/21 Time Performed: 09:15 Patient Location: Day Surgery Unit Vital Signs Most Recent Imported Vital Signs: Most Recent Vital Signs Temp Pulse Resp BP Pulse Ox 36.1 C L 65 16 116/64 98 12/30/21 09:15 12/30/21 09:15 12/30/21 09:15 12/30/21 09:15 12/30/21 09:15 Pain Score Most Recent Pain Score: Most Recent Pain Score Pain Level 0 12/30/21 09:15 Assessment Mental Status: Arousable with meaningful communication Airway and Respiratory Function: Patent airway with normal (patient baseline) respiratory exam and Abnormal Respiratory exam (See explanation) Cardiovascular Function: Hemodynamically Stable Hydration Status: Adequately Hydrated Nausea & Vomiting: No Nausea or Vomiting Pain: Pt. Denies Any Pain Peripheral Nerve Block: Patient did not receive a nerve block
== END 2021-12-30 09:50 | disposition home or self-care (01) ==
LOC: SUR 06:59
PROVIDERS: PCP Family Medicine; Visit Provider Surgery
PROC: 0DJD8ZZ Inspection of Lower Intestinal Tract, Via Natural or Artificial Opening Endoscopic (ICD-10-PCS; CPT 45378; principal; 2021-12-30 08:15)
DX: Z12.11 Encounter for screening for malignant neoplasm of colon (principal); K63.5 Polyp of colon; K57.30 Diverticulosis of large intestine without perforation or abscess without bleeding; Z86.010 Personal history of colon polyps
CPT/HCPCS: 45380; 88305

== ENCOUNTER 2022-02-07 02:49 | Outpatient (CLI) | payer OTHER, SELFPAY ==
[2022-02-07 08:33] LABS: AST 22 U/L (15-37); Calculated LDL 75 mg/dL (<100); Cholesterol 140 mg/dL (<200); HDL Cholesterol 56 mg/dL (40-60); Triglyceride 48 mg/dL (<150)
[2022-02-07 08:47] LABS: Creatine Kinase 169 U/L (26-192)
== END 2022-02-07 02:50 | disposition home or self-care (01) ==
LOC: LBO 02:49
PROVIDERS: PCP Family Medicine; Visit Provider Family Medicine
DX: E78.5 Hyperlipidemia, unspecified (principal)
CPT/HCPCS: 36415; 80061; 82550; 84450

== ENCOUNTER 2022-05-28 15:35 | Outpatient (REF) | payer OTHER, SELFPAY ==
[2022-05-30 10:41] LABS: COVID-19 RT-PCR UVMMC Result Negative (Negative)
== END 2022-05-28 15:36 | disposition home or self-care (01) ==
LOC: LBN 15:35
PROVIDERS: PCP Family Medicine; Visit Provider Physician Assistant Medical
DX: J32.9 Chronic sinusitis, unspecified (principal)
CPT/HCPCS: U0003

== ENCOUNTER 2022-10-16 13:14 | Outpatient (CLI) | payer OTHER, SELFPAY ==
--- NOTE | 2022-10-16 12:55 | DI.RAD_ITS ---
Exam(s) XR KNEE RT 4V AP,LAT,KALEE,PAT EXAM: XR KNEE RT 4V AP,LAT,KALEE,PAT CLINICAL HISTORY: RIGHT KNEE PAIN. TECHNIQUE: 2D digital imaging was performed of the right knee. Four views obtained. Merchant, AP, la teral and PA tunnel views were obtained. COMPARISON: None. FINDINGS: BONES: No acute fracture is present. No bony destructive lesion is seen. JOINTS: The knee is normally aligned. No joint effusion is seen. SOFT TISSUE: Normal. IMPRESSION: Unremarkable radiographs of the right knee. DATA REPOSITORY: RADIATION DOSE DELIVERED:
== END 2022-10-16 13:15 | disposition home or self-care (01) ==
LOC: DIORS 13:14
PROVIDERS: PCP Family Medicine; Referring Provider Family Medicine; Visit Provider Student in an Organized Health Care Education/Training Program
DX: M25.561 Pain in right knee (principal)
CPT/HCPCS: 73564

== ENCOUNTER 2022-12-12 16:39 | Outpatient (REF) | payer OTHER, SELFPAY ==
[2022-12-12 19:20] LABS: ALT 29 U/L (14-59); AST 26 U/L (15-37); Albumin 3.8 g/dL (3.4-5.0); Alkaline Phosphatase 83 U/L (46-116); Anion Gap 9.7 mmol/L (3-11); BUN 19 mg/dL (7-18); Bilirubin, Total 0.2 mg/dL (0.2-1.0); CO2 26.3 mmol/L (21.0-32.0); CREATININE 0.7 mg/dL (0.55-1.02); Calcium 9.2 mg/dL (8.5-10.1); Chloride 105 mmol/L (98-107); Estimated GFR 95.32 (mL/min/1.73m2); Glucose 96 mg/dL (74-106); Magnesium 2.1 mg/dL (1.8-2.4); Potassium 4.3 mmol/L (3.5-5.1); Sodium 141 mmol/L (136-145); TSH (W/Ref FT4) 1.36 uIU/mL (0.36-3.74); Total Protein 7.3 g/dL (6.4-8.2)
[2022-12-12 19:31] LABS: Abs Immature Grans 0.02 10^3/uL (0.0-0.06); Absolute Basophil Count 0.06 10^3/uL (0.0-0.2); Absolute Eosinophil Count 0.81 10^3/uL (0.0-0.7); Absolute Lymphocyte Count 2.11 10^3/uL (1.2-3.4); Absolute Monocyte Count 0.63 10^3/uL (0.1-0.8); Absolute Neutrophil Count 3.78 10^3/uL (1.2-6.7); Basophils % 0.8; Eosinophils % 10.9; HCT 37.2 % (36.0-46.0); HGB 12.5 g/dL (11.2-15.7); Immature Grans % 0.3; Lymphocytes % 28.5; MCH 28.4 pg (27.0-33.0); MCHC 33.6 % (32.0-36.0); MCV 85 fL (80-95); MPV 10.5 fL (8.0-11.0); Monocytes % 8.5; Platelet Count 248 10^3/uL (130-400); RDW-SD 39.9 fL; WBC 7.41 10^3/uL (4.4-10.8)
== END 2022-12-12 16:40 | disposition home or self-care (01) ==
LOC: NCHCN 16:39
PROVIDERS: PCP Family Medicine; Visit Provider Physician Assistant Medical
DX: R00.2 Palpitations (principal)
CPT/HCPCS: 80053; 83735; 84443; 85025

== ENCOUNTER 2022-12-19 08:29 | Outpatient (CLI) | payer OTHER, SELFPAY | END 2022-12-19 08:30 | disposition home or self-care (01) | PROVIDERS: PCP Family Medicine; Visit Provider Physician Assistant Medical | DX: R00.2 Palpitations (principal) | CPT/HCPCS: 93246 ==

== ENCOUNTER 2023-01-12 09:44 | Outpatient (CLI) | payer OTHER, SELFPAY ==
--- NOTE | 2023-01-12 11:26 | W.CARDEVENT ---
Date of service: 01/12/23 Time of Service: 11:26 Cardiac Event Recorder Referring Provider:: Bladimir Greenwood Indications:: Palpitations Cardiac Event Note: This is 14-day cardiac event monitor ordered for palpitations Predominant rhythm was sinus with an average heart rate of 75. Minimum was 56, maximum 122 There were rare ventricular ectopic beats, no couplets, no ventricular tachycardia There were rare atrial premature beats. A total of 10 limited atrial runs occurred. The longest of these was 5 beats in duration There was no atrial fibrillation no high-grade AV block, no pauses greater than 3 seconds Patient's symptoms were reported. The majority of these had no correlation to dysrhythmia. Two may have been associated with PVCs
== END 2023-01-12 09:45 | disposition home or self-care (01) ==
PROVIDERS: PCP Family Medicine; Visit Provider Internal Medicine Cardiovascular Disease
DX: R00.2 Palpitations (principal); I49.1 Atrial premature depolarization

== ENCOUNTER 2024-02-09 19:32 | Outpatient (REF) | payer OTHER, SELFPAY ==
[2024-02-09 19:16] LABS: Uric Acid 3.7 mg/dL (2.6-6.0)
== END 2024-02-09 19:33 | disposition home or self-care (01) ==
LOC: NCHCN 19:32
PROVIDERS: PCP Family Medicine; Visit Provider Nurse Practitioner Family
DX: M25.561 Pain in right knee (principal)
CPT/HCPCS: 84550

== ENCOUNTER → 2024-03-11 15:05 | Outpatient (CLI) | payer OTHER, SELFPAY ==
--- NOTE | 2024-03-11 15:20 | DI.RAD_ITS ---
Exam(s) XR KNEE RT 3V AP,LAT,KALEE EXAM: XR KNEE RT 3V AP,LAT,KALEE CLINICAL HISTORY: PAIN RT KNEE REGION, M25.561, PAIN RT KNEE. TECHNIQUE: 2D digital imaging was performed of the right knee. Three views obtained. AP, lateral an d PA tunnel views were obtained. COMPARISON: CR XR KNEE RT 4V AP,LAT,KALEE,PAT from 10/16/2022 FINDINGS: BONES: No acute fracture is present. No bony destructive lesion is seen. JOINTS: The knee is normally aligned. There is a small joint effusion. SOFT TISSUE: Normal. IMPRESSION: Small joint effusion. DATA REPOSITORY: RADIATION DOSE DELIVERED:
== END ==
PROVIDERS: PCP Family Medicine; Visit Provider Nurse Practitioner Family
DX: M25.561 Pain in right knee (principal)
CPT/HCPCS: 73562

== ENCOUNTER 2024-09-30 11:29 | Outpatient (REF) | payer OTHER, SELFPAY ==
--- OUTSIDE RECORDS SUMMARY | 2024-09-30 11:31 | XMS_ITS | Clinical Summary ---
Author Organization [facility] Address [address] [place] [address] Care Team Providers Care Pit Supervisor Name Role Phone Unknown, Provider Primary Care Provider Unava ilable Social History Tobacco Use Types Packs/Day Years Used Date Smoking Tobacco: Never Assessed Interpersonal Safety Answer Date Record ed Physically Hurt Never 05/06/2020 Verbally Threaten Not on file 05/06/2020 Comments Unknown Sex and Gender Information Value Date Recorded Sex Assigned at Not on file Legal Sex Female 18:19 EST Gender Identity Not on file Sexual Orientation Not on file Plan of Treatment Health Maintenance Due Date Last Done Comments Hepatitis C Screen 1955 Fall Risk Screening 2021 COVID-19 Vaccine (2023-25 season) 2024 RSV Immunization ( o r 60+ Years) (1 - 1-dose 75+ series) 2031 Insurance HEALTH PLANS Care Teams Pit Supervisor Relationship Specialty Start Date End Date Unknown, Provider, PCP - General 05/03/09
--- OUTSIDE RECORDS SUMMARY | 2024-09-30 11:31 | XMS_ITS | Encounter Summary ---
Author Organization [facility] Address [address] [place] [address] Care Team Providers Care Car Dumper Operator Helper Name Role Phone Unknown, Provider Primary Care Provider Inessa ilmitchell Encounter Details Date Type Department Care Team (Late st Contact Info) Description 05/29/[address] [facility] Pathology & Laboratory Medicine - [facility] [address] [place], [place] [address] Outr Resulting Lab, Provider Social History Tobacco Use Types Packs/Day Years Used Date Smoking Tobacco: Never Assessed Interpersonal Safety Answer Date Record ed Physically Hurt Never 05/06/2020 Verbally Threaten Not on file 05/06/2020 Comments Unknown Sex and Gender Information Value Date Recorded Sex Assigned at Not on file Legal Sex Female 18:19 EST Gender Identity Not on file Sexual Orientation Not on file documented as of this encounter Plan of Treatment Not on file documented as of this encounter Procedures Procedure Name Priority Date/Time Associated Diagnosis Comments ZZCOVID-19 TEST [facility] PCR Today 05/28/2022 11:18 EDT COVID-19 TESTING Routine 05/28/2022 11:1 8 EDT documented in this encounter Results * COVID-19 TEST [facility] PCR (05/28/2022 11:18 EDT) Swab 05/28/2022 11:1 8 EDT 05/29/2022 17:13 EDT us Provider Outr Resulting Lab MICROBIOLOGY - GENER AL ORDERABLES Final Result [facility] [address] [place] [address] * COVID-19 TESTING (05/28/2022 11:18 EDT) COVID-19 rt-PCR Result Negative Negative 05/30/2022 10:37 EDT [facility] Comment: This test has not been FDA cleared or approved. This test has been authorized by FDA under an EUA for use by authorized laboratories. This test has been authorized only for detection of nucleic acid from 2019-nCoV, not for any other viruses or pathogens. This test is only authorized for the duration of the declaration that circumstances exist justifying the authorization of emergency use of in vitro diagnostic tests for detection and/or diagnosis of 2019-nCoV under section 564(b)(1) of Act, 21 U.S.C ?? 360bbb-3(b) (1), unless the authorization is terminated or revoked sooner. Negative results do not preclude 2019-nCoV infection and should not be used as the sole basis for treatment or other patient management decisions. Negative results must be combined with clinical observations, patient history, and epidemiological information. Testing was performed using the guy SARS-CoV-2 assay ([employer] on the Guy 6800 System Performing Lab Guy [address] [facility] 05/30/2022 10:37 EDT [facility] Swab 05/28/2022 11:1 8 EDT 05/29/2022 17:13 EDT us Provider Outr Resulting Lab MICROBIOLOGY - GENER AL ORDERABLES Final Result [facility] [address] [place] [address] documented in this encounter Visit Diagnoses Not on filedocumented in this encounter Care Teams Car Dumper Operator Helper Relationship Specialty Start Date End Date Unknown, Provider, PCP - General 05/03/09 documented as of this encounter
--- OUTSIDE RECORDS SUMMARY | 2024-09-30 11:31 | XMS_ITS | Continuity of Care Document ---
Author Organization [facility] Address [address] [place] [address] Care Team Providers Care Bleacher [employer] Name Role Phone Suzanne De Guzman Primary Care Physician [phone] [facility] - 02/20/23 [facility] [address] [place] [address] Discharge Disposition: Home Allergies, Adverse Reactions, Alerts Substance Reaction Severity Status ANIMAL DANDER Unknown Active penicillin Mild Active lisinopril Mild Active losartan Mild Active penicillins Unknown Active Esoterica with Sunscreen Mild Act lor Assessment and Plan Future Appointments Immunizations Given and Recorded Vaccine Date Status Refusal Reason influenza virus vaccine, inactivated 07/05/17 Madan rded zoster vaccine live 01/29/17 Recorded tetanus/diphth/pertuss (Tdap) adult/adol 03/24/12 Recorded pneumococcal 23-polyvalent vaccine 04/04/00 Record ed Medications Children's Robitussin Cough and Chest Congestion DM 10 mg-100 mg/10 mL oral liquid 5 mL, Oral, every 4 hr, PRN as needed for cough, not to exceed 6 doses/day, # 30 mL, 0 Refill(s) Start Date: 02/18/23 Status: Ordered Effexor XR 75 mg oral capsule, extended release 75 mg = 1 cap, Oral, Daily, # 30 cap, 0 Refill(s) Start Date: 02/18/23 Status: Ordered [place] Vitamin D3 25 mcg (1000 intl units) oral capsule 0 Refill(s) Start Date: 02/18/23 Status: Ordered montelukast 10 mg oral tablet 10 mg = 1 tab, Oral, Daily, 0 Refill(s) Start Date: 02/18/23 Status: Ordered multivitamin adult, oral tablet 0 Refill(s) Start Date: 02/18/23 Status: Ordered Norvasc 10 mg oral tablet 10 mg = 1 tab, Oral, Daily, # 90 tab, 0 Refill(s) Start Date: 02/18/23 Status: Ordered ProAir HFA 90 mcg/inh inhalation aerosol 2 puffs, Inhale, every 6 hr, PRN as needed for wheezing, # 8.5 g, 0 Refill(s) Start Date: 02/18/23 Status: Ordered simvastatin 5 mg oral tablet 5 mg = 1 tab, Oral, every day at bedtime, # 90 tab, 0 Refill(s) Start Date: 02/18/23 Status: Ordered Tylenol Extra Strength 500 mg oral tablet 500 mg = 1 tab, Oral, every 8 hr, PRN as needed for pain, # 24 tab, 0 Refill(s) Start Date: 02/18/23 Status: Ordered zolpidem 5 mg oral tablet See Instructions, take 1-2 PO night of sleep study if needed, # 2 tab, 0 Refill(s), Pharmacy: [facility] Start Date: 02/19/23 Status: Ordered Problem List Condition Confirmation Course Effective Dates Status H ealth Status Informant Acute URI Confirmed Active Allergic rhinitis Confirmed Active Allergic rhinitis Confirmed Active Hematuria Confirmed Active Diverticula of intestine Confirmed Active Diverticulosis Confirmed Active History of tobacco use Confirmed Active Right foot pain Confirmed Active Generalized anxiety disorder Confirmed Active 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 H/O bilateral oophorectomy Confirmed Active Hx of adenomatous colonic polyps Confirmed Active Hx of breast cancer Confirmed Active Hx of mastectomy Confirmed Active History of COVID-19 Confirmed Active High cholesterol Confirmed Active Hyperlipemia Confirmed Active Hypertensive disorder Confirmed Active HTN (hypertension) Confirmed Active Mild memory disturbance Confirmed Active Palpitation Confirmed Active Postmenopausal bleeding Confirmed Active Post-menopausal bleeding Confirmed Active Primary malignant neoplasm of female breast Confirmed Active Psoriasis Confirmed Active Restless legs Confirmed 02/22/18 Active Sinusitis Confirmed Active Skin lesion Confirmed Active Sleep disorder Confirmed Active Snoring Confirmed Active Loud snoring Confirmed Active Social History Social History Type Response Tobacco Never tobacco user T obacco Use:. Sex Female Patient Care team information Care Team Personnel Name: Suzanne De Guzman MD Position: No Access Member Role: Primary Care Physician Address: Address: [address] [place] [address]- [place] Care Team Related Persons Name: BRANDON PATEL Address: [address] [place] [address] [place]
--- OUTSIDE RECORDS SUMMARY | 2024-09-30 11:31 | XMS_ITS | Referral Summary ---
Author Organization [facility] Address [address] [place] [address] Care Team Providers Care Dining Service Inspector Name Role Phone Unknown, Provider Primary Care [...] Orientation Not on file Plan of Treatment Not on file Insurance [employer] PLANS Care Teams Dining Service Inspector Relationship Specialty Start Date End Date Unknown, Provider, PCP - General 05/03/09
--- OUTSIDE RECORDS SUMMARY | 2024-09-30 11:32 | XMS_ITS | Encounter Summary ---
[place] [address] Care Team Providers Care Youth Manager Name Role Phone Bobbi Blum MD Primary Care Provider [phone] Reason for Visit * Reason Comments Follow-up Encounter Details Date Type Department Care Team (Late st Contact Info) Description 07/04/2013 4:00 PM EDT Office Visit Dermatology [facility] [address] [place], [place] [id number] Willie Field MD [address] [place] [address] RD, [place] [address] Psoriasiform dermatitis (Primary Dx) Social History Tobacco Use Types Packs/Day Years Used Date Smoking Tobacco: Former Cigarettes Q uit: 02/26/1990 Smokeless Tobacco: Never Alcohol Use Standard Drinks/Week Comments No 0 (1 standard drink = 0.6 oz pur e alcohol) Sex and Gender Information Value Date Recorded Sex Assigned at Not on file Gender Identity Not on file Sexual Orientation Not on file documented as of this encounter Progress Notes * Willie Field MD - 07/04/2013 4:35 PM EDT Problem: Followup psoriasiform hand dermatitis, 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 Ligia follows up and is seeing significant improvement. She is tolerating the cyclosporin well without headaches, stomach upset, or any other issues. Physical examination reveals that the hyperkeratosis has largely cleared, and while her palm still remains somewhat erythematous, there is no distal fissuring of the fingers or dermatitis. She has no stigmata of psoriasis elsewhere. Assessment and Plan: Psoriasiform hand dermatitis. delaney Donaldson tapering the cyclosporin from the current dosing of 300 mg a day to just 100 mg b.i.d. for three weeks, then one p.o. daily for three weeks, and then return to the clinic. b. Continue using CeraVe cream, which she loves. c. Blood pressure today is 130/80. d. Today check cyclosporin labs. COPY: Bobbi Blum M.D. documented in this encounter Plan of Treatment Not on file documented as of this encounter Visit Diagnoses Diagnosis Psoriasiform dermatitis- Primary Other psoriasis and similar disorders documented in this encounter Care Teams Youth Manager Relationship Specialty Start Date End Date Bobbi Blum MD [facility] [address] [place] [address] [place] [address] PCP - General 10/01/12 08/15/13 documented as of this encounter
--- OUTSIDE RECORDS SUMMARY | 2024-09-30 11:32 | XMS_ITS | Encounter Summary ---
[facility] [place] [address] Care Team Providers Care Saloon Keeper Name Role Phone Suzanne De Guzman MD Primary Care Provider Encounter Details Date Type Department Care Team (Latest Contact Info) Description 11/06/2016 11:00 AM EST Office Visit Hematology/Oncology at [address] [phone] Iraida Zhou APRN Adenocarcinoma of breast, left Social History Tobacco Use Types Packs/Day Years Used Date Smoking Tobacco: Former Cigarettes Q uit: 02/26/1990 Smokeless Tobacco: Never Alcohol Use Standard Drinks/Week Comments No 0 (1 standard drink = 0.6 oz pur e alcohol) Sex and Gender Information Value Date Recorded Sex Assigned at Not on file Gender Identity Not on file Sexual Orientation Not on file documented as of this encounter Last Filed Vital Signs Vital Sign Reading Time Taken Comments Blood Pressure 167/97 11/06/2016 11:02 AM EST Pulse 76 11/06/2016 11:02 AM EST Temperature 36.7 ??C (98.1 ??F) 11/06/2016 11:[address] Respiratory Rate 16 11/06/2016 11:02 AM EST Oxygen Saturation 99% 11/06/2016 11:02 AM EST Inhaled Oxygen Concentration - - Weight 92.5 kg (204 lb) 11/06/2016 11:02 AM EST Height 175.3 cm (5' 9.02) 11/06/2016 11:[address] Body Mass Index 30.11 11/06/2016 11:02 AM EST documented in this encounter Progress Notes * Iraida Zhou APRN - 11/06/2016 11:00 AM EST Images from the original note were not included. Subjective: Patient ID: Ligia Lara is a 61 y.o. female. HPI Comments: Patient returns for f/u now more than 17 years from diagnosis and treatment for a carcinoma of the breast presenting when she was 43 years old. She has a sister who developed breast cancer at the age of 28 during . In addition, her mother was diagnosed with and treated for breast carcinoma. She and her mother consulted the familial cancer program and genetic testing was apparently negative. Following adjuvant chemotherapy Ligia underwent prophyllactic breast resection andoophorectomy. She has been on buttermaker adjuvant therapy first with tamoxifen and supsequently Femara. She was on Femara for 11 years. She has had no symptoms or problems suggestive of disease recurre nce. Stage 1 adenocarcinoma - left breast a. 1996 left breast mass found, biopsy showed a borderline Phyllodes tumor. She underwent wide local excision. b. 1998 found to have multicentric cancer in L breast, stage pT1B pN0. She underwent excisional biopsy. Specimen number one showed an invasive ductal carcinoma which was moderately differentiated, measuring 0.7 cm with associated DCIS. Second focus of adenocarcinoma wasalso found, It was moderately differentiated cancer measuring 2.18 mm. She underwent a left modified radical mastectomy. There was a focus of residual adenocarcinoma of approximately 1.9 mm. 17 negative lymph nodes were removed. c. She received adjuvant chemotherapy of AC for five cycles. d. She then started tamoxifen and completed five years in August of 2004. e. She underwent prophylactic right mastectomy in 1999. This showed fibrocystic changes and no evidence of malignancy. f. The patient underwent prophylactic oophorectomy on October 10, 2004. g. In November of 2004, the patient was started on Femara based on data suggesting improved outcomein patients who received further hormonal therapy with aromatase inhibitors following five years oftamoxifen H. Stopped Femara in 04/2016 Strong family history of cancer. Sister with invasive breast cancer at the age of 28. Another sister with lung cancer who was a smoker. Two maternal aunts have also had breast cancer. Both aunt has also had colon cancer and is alive and well. The patient has other family members with lung cancer, but they were smokers Most recently she has enjoyed time with her grandchildren although struggling with trying to care for her mother in [place] who has issues with dementia and there has been family conflict. Overall she hasbeen very healthy. She sees her PCP regularly for hypertension. Review of Systems Constitutional: Negative for activity change, appetite change, fatigue, fever and unexpected weightchange. HENT: Negative. Eyes: Negative. Respiratory: Negative for cough, shortness of breath and wheezing. Cardiovascular: Negative for chest pain, palpitations and leg swelling. Gastrointestinal: Negative for abdominal distention, abdominal pain, blood in stool, constipation, diarrhea and nausea. Genitourinary: Negative for difficulty urinating, dysuria, flank pain, frequency, hematuria, vaginal bleeding and vaginal discharge. Musculoskeletal: Negative for arthralgias, back pain and myalgias. Skin: Negative for pallor and rash. Neurological: Negative. Psychiatric/Behavioral: Positive for agitation and dysphoric mood. The patient is nervous/anxious. Considerable stress over her mother in [place] Objective: Physical Exam Constitutional: She is oriented to person, place, and time. She appears well- developed and well-nourished. No distress. HENT: Head: Normocephalic and atraumatic. Eyes: Conjunctivae and EOM are normal. Pupils are equal, round, and reactive to light. No scleral icterus. Neck: Normal range of motion. Neck supple. No JVD present. No thyromegaly present. Cardiovascular: Normal rate, regular rhythm, normal heart sounds and intact distal pulses. Exam reveals no gallop. No murmur heard. Pulmonary/Chest: Effort normal and breath sounds normal. No respiratory distress. She has no wheezes. She has no rales. Abdominal: Soft. Bowel sounds are normal. She exhibits no distension. There is no tenderness. Musculoskeletal: Normal range of motion. She exhibits no edema. Lymphadenopathy: She has no cervical adenopathy. She has no axillary adenopathy. Right: No supraclavicular adenopathy present. Left: No supraclavicular adenopathy present. Neurological: She is alert and oriented to person, place, and time. Skin: Skin is warm and dry. No rash noted. No pallor. Psychiatric: She has a normal mood and affect. Her behavior is normal. Vitals reviewed. BP (!) 167/97 (Patient Position: Sitting) Pulse 76 Temp 36.7 ??C (98.1 ??F) (Oral) Resp 16 Ht 175.3cm (5' 9.02) Wt 92.5 kg (204 lb) SpO2 99% BMI 30.11 kg/m2 Wt Readings from Last 3 Encounters: 11/06/16 92.5 kg (204 lb) 11/08/15 91.6 kg (202 lb) 04/13/15 90.5 kg (199 lb 8 oz) LAB: date CA 27.29 03/19/15 25.4 09/05/13 29.9 03/09/13 24.2 09/23/12 25.5 02/06/12 28.7 08/19/11 34.0 08/14/10 30.4 02/19/10 26.3 08/21/09 31.3 04/23/09 17.9 02/07/09 27.2 09/18/08 18.7 03/15/08 11.3 01/12/08 24.8 DEXA scan(03/29/13): Impression: normal bone mineral density. Only slight decrease from study in 2010 at hip and lumbar spine. Assessment and Plan: Patient is doing well and remains free of evidence of recurrent disease of other significant new problems. We had a long discussion today regarding her follow- up. Given the fact that she is now over 17 years out from her diagnosis and 11 years out on Femara. She stopped in April 2016. We will plan visits to see us annually. She will be in touch in the interim if there are problems or questions. Gave her info on [facility]. Current Outpatient Prescriptions on File Prior to Visit Medication Sig Dispense Refill ??? letrozole (FEMARA) 2.5 mg Tablet Take 1 tablet by mouth daily. 90 tablet 3 ??? amlodipine (NORVASC) 5 mg tablet Take 10 mg by mouth daily. ??? montelukast (SINGULAIR) 10 mg tablet Take 10 mg by mouth nightly. ??? CALCIUM CARBONATE/VITAMIN D3 (CALCIUM WITH VITAMIN D ORAL) Take by mouth 2 times daily. ??? venlafaxine (EFFEXOR-XR) 37.5 mg 24 hr capsule Take 37.5 mg by mouth daily. ??? multivitamin (THERAGRAN) tablet No current facility-administered medications on file prior to visit. Patient Active Problem List Diagnosis Code ??? Adenocarcinoma of breast C50.919 ??? Hypertension I10 ??? 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 Psoriasis L40.9 ??? History of basal cell carcinoma Z85.828 Other Providers: Michael Nolasco MD documented in this encounter Plan of Treatment Not on file documented as of this encounter Visit Diagnoses Diagnosis Adenocarcinoma of breast, left documented in this encounter Care Teams Saloon Keeper Relationship Specialty Start Date End Date Suzanne De Guzman MD [address] [place] [address] PCP - General 08/16/13 documented as of this encounter
--- OUTSIDE RECORDS SUMMARY | 2024-09-30 11:32 | XMS_ITS | Encounter Summary ---
[place] [address] Care Team Providers Care Traffic Controller Cable Name Role Phone Suzanne De Guzman MD Primary Care Provider [phone] Encounter Details Date Type Department Care Team (Late st Contact Info) Description 04/24/2022 Telephone [place] [phone] [facility] [address] Hematology/[place] [address] Social History Tobacco Use Types Packs/Day Years [...] documented as of this encounter Visit Diagnoses Not on filedocumented in this encounter Care Teams Traffic Controller Cable Relationship Specialty Start Date End Date Suzanne De Guzman MD [address] [place] [address] PCP - General 08/16/13 documented as of this encounter
--- OUTSIDE RECORDS SUMMARY | 2024-09-30 11:32 | XMS_ITS | Encounter Summary ---
Author Organization [facility] Address [address] [place] [address] Care Team Providers Care Riverboat Captain Name Role Phone Unknown, Provider Primary Care Provider Unava ilable Encounter Details Date Type Department Care Team (Late st Contact Info) Description 01/02/2003 Results Only [facility] [place] conversion [address] [place] [address] Nikolas Chávez MD [address] [facility] [address] [place] [address] Social History Tobacco Use Types Packs/Day Years Used Date Smoking Tobacco: Never Assessed Comments Unknown Sex and Gender Information Value Date Recorded Sex Assigned at Not on file Legal Sex Female 18:19 EST Gender Identity Not on file Sexual Orientation Not on file documented as of this encounter Plan of Treatment Not on file documented as of this encounter Procedures Procedure Name Priority Date/Time Associated Diagnosis Comments CYTOPATHOLOGY Routine 01/02/2003 0:00 EST documented in this encounter Results * CYTOPATHOLOGY (01/02/2003 0:00 EST) Pathology Report: CYTOPATHOLOGY REPORT Reports generated via electronic interface contain original data; however they are lacking the format of the original report. Caution should be taken when reading/interpreti ng unformatted reports. Name: ? LIGIA PATEL ? Accession #: ? [id number] : ? 1955 (Age: 47) ??F ?Collect Date: ? 01/02/2003 Location: ? [facility] ? Receive Date: ? 01/03/2003 Provider: ?NIKOLAS CHÁVEZ MD Copy to: ? Specimen/Source: ?ThinPrep Pap Test, Cervix/Endocervix Last Menstrual Period: ? 02/03 Other: ? Additional clinical information: Atrophic vagina, vaginal discharge ? SPECIMEN ADEQUACY ? Satisfactory for Evaluation - transformation zone component present GENERAL CATEGORIZATION ? Negative for Intraepithelial Lesion or Malignancy ? Document reviewed and electronically signed by: ? Gunjan Ernandez CT(ASCP) ? Report Date: ??01/04/2003 13:31 End of Report [facility] 01/02/2003 01/03/2003 us Nikolas Chávez MD PATHOLOGY ORDERABLES Final Resu lt [facility] [address] [place] [address] documented in this encounter Visit Diagnoses Not on filedocumented in this encounter Care Teams Riverboat Captain Relationship Specialty Start Date End Date Unknown, Provider, PCP - General 05/03/09 documented as of this encounter
--- OUTSIDE RECORDS SUMMARY | 2024-09-30 11:32 | XMS_ITS | Encounter Summary ---
Author Organization [facility] Address [address] [place] [address] Care Team Providers Care Miner Assistant Name Role Phone Unknown, Provider Primary Care Provider Unava ilable Encounter Details Date Type Department Care Team (Late st Contact Info) Description 01/14/2005 Results Only [facility] [place] conversion [address] [place] [address] Nikolas Chávez MD 29 [facility] [address] [place] [address] Social History Tobacco Use Types [...] Priority Date/Time Associated Diagnosis Comments CYTOPATHOLOGY Routine 01/14/2005 0:00 EDT documented in this encounter Results * CYTOPATHOLOGY (01/14/2005 0:00 EDT) Pathology Report: CYTOPATHOLOGY REPORT Reports generated via electronic interface contain original data; however they are lacking the format of the original report. Caution should be taken when reading/interpreti ng unformatted reports. Name: ? LIGIA PATEL ? Accession #: ? [id number] : ? 1955 (Age: 49) ??F ?Collect Date: ? 01/14/2005 Location: ? [facility] ? Receive Date: ? 01/16/2005 Provider: ?NIKOLAS CHÁVEZ MD Copy to: ? Specimen/Source: ?ThinPrep Pap Test, Cervix/Endocervix Last Menstrual Period: ? SPECIMEN ADEQUACY ? Satisfactory for Evaluation - assessment of transformation zone component not applicable ( e.g. atrophy, vaginal sample, hysterectomy) - scant squamous epithelial component GENERAL CATEGORIZATION ? Negative for Intraepithelial Lesion or Malignancy ? Document reviewed and electronically signed by: ? AMY Larsen(ASCP) ? Report Date: ??01/23/2005 09:35 End of Report [facility] 01/14/2005 01/16/2005 us Nikolas Chávez MD PATHOLOGY ORDERABLES Final Resu lt [facility] [address] [place] [address] documented in this encounter Visit Diagnoses Not on filedocumented in this encounter Care Teams Miner Assistant Relationship Specialty Start Date End Date Unknown, Provider, PCP - General 05/03/09 documented as of this encounter
--- OUTSIDE RECORDS SUMMARY | 2024-09-30 11:32 | XMS_ITS | Encounter Summary ---
Author Organization [facility] Address [address] [place] [address] Care Team Providers Care Curer Foam Rubber Name Role Phone Unknown, Provider Primary Care Provider Unava ilable Encounter Details Date Type Department Care Team (Late st Contact Info) Description 01/22/2007 Results Only [facility] [place] conversion [address] [place] [address] Nikolas Chávez MD 29 [facility] [address] [place] [address] Social History Tobacco Use Types [...] Priority Date/Time Associated Diagnosis Comments CYTOPATHOLOGY Routine 01/22/2007 0:00 EDT documented in this encounter Results * CYTOPATHOLOGY (01/22/2007 0:00 EDT) Pathology Report: CYTOPATHOLOGY REPORT Reports generated via electronic interface contain original data; however they are lacking the format of the original report. Caution should be taken when reading/interpreti ng unformatted reports. Name: ? LIGIA PATEL ? Accession #: ? [id number] : ? 1955 (Age: 51) ??F ?Collect Date: ? 01/22/2007 Location: ? [facility] ? Receive Date: ? 01/25/2007 Provider: ?NIKOLAS CHÁVEZ MD Copy to: ? Specimen/Source: ?ThinPrep Pap Test, Cervix/Endocervix, processed on [employer] ThinPrep Imaging System, with manual evaluation Last Menstrual Period: ? Other: ? Additional clinical information: Atrophic vagina ? SPECIMEN ADEQUACY ? Satisfactory for Evaluation - transformation zone component present GENERAL CATEGORIZATION ? Negative for Intraepithelial Lesion or Malignancy ? Document reviewed and electronically signed by: ? AMY Almodovar(ASCP) ? Report Date: ??01/28/2007 16:58 End of Report [facility] 01/22/2007 01/25/2007 us Nikolas Chávez MD PATHOLOGY ORDERABLES Final Resu lt [facility] [address] [place] [address] documented in this encounter Visit Diagnoses Not on filedocumented in this encounter Care Teams Curer Foam Rubber Relationship Specialty Start Date End Date Unknown, Provider, PCP - General 05/03/09 documented as of this encounter
--- OUTSIDE RECORDS SUMMARY | 2024-09-30 11:32 | XMS_ITS | Encounter Summary ---
Author Organization [facility] Address [address] [place] [address] Care Team Providers Care Belt Picker Name Role Phone Unknown, Provider Primary Care Provider Unava ilable Encounter Details Date Type Department Care Team (Late st Contact Info) Description 02/18/2000 Results Only [facility] [place] conversion [address] [place] [address] Michael Bosch MD [address] [place] [address] Social History Tobacco Use Types Packs/Day Years [...] Procedure Name Priority Date/Time Associated Diagnosis Comments SURGICAL PATHOLOGY Routine 02/18/2000 0:00 EDT documented in this encounter Results * SURGICAL PATHOLOGY (02/18/2000 0:00 EDT) Pathology Report: SURGICAL PATHOLOGY REPORT Reports generated via electronic interface contain original data; however they are lacking the format of the original report. Caution should be taken when reading/interpreti ng unformatted reports. Name: ? LIGIA LARA ? Accession #: ? [id number] ? : ? 1955 (Age: 44) ??F ? Collect Date: ? 02/18/2000 ? Location: ? [facility] ? Receive Date: ? 02/19/2000 ? Provider: MICHAEL BOSCH MD Copy to: YOMI GIBBS MD ? Final Pathologic Diagnosis: ? Breast, right, simple mastectomy: 1. ?Fibrocystic changes including: ? - Interlobular fibrosis. - Adenosis. - Microcyst formation. ? 2. ??Nipple areolar complex with no pathologic features. Document reviewed and electronically signed by: Roseann Moreno MD Report ??Date: 02/21/2000 16:20 By the signature above, the attending physician certifies that he/she has personally conducted a gross and/or microscopic examination of the described specimens and rendered or confirmed the above diagnosis. Specimen(s) Received: ? Rt breast simple mastx Clinical History: ? For prophylactic Rt mastx with strong FH and personal hx of phyllodes (Dx [facility] path) and ductal CA L breast; see [id number], [id number], [id number] Gross Description: ? Received in formalin labelled Jane and right breast is the product of a simple mastectomy. ??The specimen is received with a suture on one edge, but the surgical pathology requisition nor the label on the container specify what the suture designates. ??The suture will arbitrarily be assigned lateral. ??The specimen weighs 480 grams and measures medial to lateral 27.0 cm, superior to inferior 15.0 cm, and anterior to posterior 4.0 cm. ??The specimen contains a skin ellipse which measures medial to lateral 27.0 cm and superior to inferior 8.0 cm. ??The presumed superior half surgical margin is black inked and the presumed inferior half surgical margin is blue inked. ??Cut sections reveal white fibrous tissue with admixed variably sized yellow fat lobules. ??The nipple is erect, grossly normal, and measures 1.2 cm in diameter. ??The nipple is surrounded by a grossly normal areolar complex which measures 4.0 cm in greatest diameter. ??The nipple is 7.0 cm away from the nearest cutaneous long margin which is presumed to be medial, and 12.0 cm away from the cutaneous long margin that is presumed to be lateral. ?? BLOCK PERES A1 ?Nipple A2 ?Lactiferous sinus A3-A5 ?Cooking Teacher sections of upper inner quadrant A6-A8 ?Cooking Teacher sections of upper outer quadrant A9-A11 ?Cooking Teacher sections of lower outer quadrant A12-A14 ? Cooking Teacher sections of lower inner quadrant ([facility]. [facility]) /ljn End of Report [facility] 02/18/2000 02/19/2000 10: 04 EDT us Michael Bosch MD PATHOLOGY ORDERABLES Final Result [facility] [address] [place] [address] documented in this encounter Visit Diagnoses Not on filedocumented in this encounter Care Teams Belt Picker Relationship Specialty Start Date End Date Unknown, Provider, PCP - General 05/03/09 documented as of this encounter
--- OUTSIDE RECORDS SUMMARY | 2024-09-30 11:32 | XMS_ITS | Encounter Summary ---
Author Organization [facility] Address [address] [place] [address] Care Team Providers Care Script Reader Name Role Phone Unknown, Provider Primary Care Provider Unava ilable Encounter Details Date Type Department Care Team (Late st Contact Info) Description 12/25/2003 Results Only [facility] [place] conversion [address] [place] [address] Nikolas Chávez MD 29 [facility] [address] [place] [address] Social History Tobacco Use Types [...] Priority Date/Time Associated Diagnosis Comments CYTOPATHOLOGY Routine 12/25/2003 0:00 EST documented in this encounter Results * CYTOPATHOLOGY (12/25/2003 0:00 EST) Pathology Report: CYTOPATHOLOGY REPORT Reports generated via electronic interface contain original data; however they are lacking the format of the original report. Caution should be taken when reading/interpreti ng unformatted reports. Name: ? LIGIA PATEL ? Accession #: ? [id number] : ? 1955 (Age: 48) ??F ?Collect Date: ? 12/25/2003 Location: ? [facility] ? Receive Date: ? 12/26/2003 Provider: ?NIKOLAS CHÁVEZ MD Copy to: ? Specimen/Source: ?ThinPrep Pap Test, Cervix/Endocervix Last Menstrual Period: ? 2002 Menstrual/Pregnanc y Status: ? Amenorrhea ? SPECIMEN ADEQUACY ? Satisfactory for Evaluation - transformation zone component present GENERAL CATEGORIZATION ? Negative for Intraepithelial Lesion or Malignancy ? Document reviewed and electronically signed by: ? AMY Talamantes(ASCP) ? Report Date: ??12/29/2003 13:14 End of Report [facility] 12/25/2003 12/26/2003 us Nikolas Chávez MD PATHOLOGY ORDERABLES Final Resu lt [facility] [address] [place] [address] documented in this encounter Visit Diagnoses Not on filedocumented in this encounter Care Teams Script Reader Relationship Specialty Start Date End Date Unknown, Provider, PCP - General 05/03/09 documented as of this encounter
--- OUTSIDE RECORDS SUMMARY | 2024-09-30 11:32 | XMS_ITS | Encounter Summary ---
Author Organization [facility] Address [address] [place] [address] Care Team Providers Care Senior Web Services Developer Name Role Phone Unavailable Primary Care Provider Unavailabl e Encounter Details Date Type Department Care Team (Late st Contact Info) Description 02/07/2009 Orders Only [facility] Services - [facility] [place] [address], [place] [id number] Jeny Rae MD [address] [place] [address] [place] [address] Social History Tobacco Use Types Packs/Day Years [...] Priority Date/Time Associated Diagnosis Comments CYTOPATHOLOGY Routine 02/07/2009 0:00 EDT documented in this encounter Results * CYTOPATHOLOGY (02/07/2009 0:00 EDT) Pathology Report: CYTOPATHOLOGY REPORT ? Reports generated via electronic interface contain original data; ? however they are lacking the format of the original report. ? Caution should be taken when reading/interpreti ng unformatted reports. ? Name: ? LIGIA PATEL ? Accession #: ? [id number] ? : ? 1955 (Age: 53) ??F ?Collect Date: ? 02/07/2009 ? Location: ? [facility] ? Receive Date: ? 02/08/2009 ? Provider: ?JENY RAE MD ? Copy to: ? Specimen/Source: ?Pap Test, Cervix/Endocervix, ThinPrep Imaging System ? with manual evaluation ? Last Menstrual Period: ? Treatment History: ? Miscellaneous treatment: S/p BSO 01/05 ? Other: ? Additional clinical information: S/p Breast Cancer (L) 1999 ? HPVA - HPV testing requested if ASC-US on the current ThinPrep Pap test. ? SPECIMEN ADEQUACY ? Satisfactory for Evaluation ? - assessment of transformation zone component not applicable ( e.g. atrophy, ? vaginal sample, hysterectomy) ? - scant squamous epithelial component ? GENERAL CATEGORIZATION ? Negative for Intraepithelial Lesion or Malignancy ? Document reviewed and electronically signed by: ? Margaret Ramírez, CT(ASCP)(IAC) ? Report Date: ??02/12/2009 10:26 ? End of Report ? [facility] 02/07/2009 02/08/2009 us Jeny Rae MD PATHOLOGY ORDERABLES Final Resu lt [facility] [address] [place] [address] documented in this encounter Visit Diagnoses Not on filedocumented in this encounter
--- OUTSIDE RECORDS SUMMARY | 2024-09-30 11:32 | XMS_ITS | Encounter Summary ---
Author Organization [facility] Address [address] [place] [address] Care Team Providers Care Dual Rate Supervisor Name Role Phone Unknown, Provider Primary Care Provider Inessa ilable Encounter Details Date Type Department Care Team (Late st Contact Info) Description 12/11/2020 Lab Requisition [facility] Pathology & Laboratory Medicine - [facility] [address] [place], [place] [id number] Outr Resulting Lab, Provider Social History Tobacco [...] Comments ZZCOVID-19 TEST [facility] PCR Today 12/11/2020 14:51 EST COVID-19 TESTING Routine 12/11/2020 14:5 1 EST documented in this encounter Results * COVID-19 TEST [facility] PCR (12/11/2020 14:51 EST) Swab ENTIRE NASOPHARYNX / Unknown 12/11/2020 14:51 EST 12/11/2020 20:54 EST us Provider Outr Resulting Lab MICROBIOLOGY - GENER AL ORDERABLES Final Result [facility] [address] [place] [address] * COVID-19 TESTING (12/11/2020 14:51 EST) COVID-19 rt-PCR Result Negative Negative 12/12/2020 1:24 EST [facility] Comment: This test has [...] clinical observations, patient history, and epidemiological information. Performed on the [employer] Fusion instrument Performing Lab [facility] 12/12/2020 1:24 EST [facility] Swab 12/11/2020 14:5 1 EST 12/11/2020 20:54 EST us Provider Outr Resulting Lab MICROBIOLOGY - GENER AL ORDERABLES Final Result [facility] [address] [place] [address] documented in this encounter Visit Diagnoses Not on filedocumented in this encounter Care Teams Dual Rate Supervisor Relationship Specialty Start Date End Date Unknown, Provider, PCP - General 05/03/09 documented as of this encounter
--- OUTSIDE RECORDS SUMMARY | 2024-09-30 11:32 | XMS_ITS | Encounter Summary ---
[place] [address] Care Team Providers Care Water Treatment Plant Operator Name Role Phone Suzanne De Guzman MD Primary Care Provider [phone] Encounter Details Date Type Department Care Team (Latest Contact Info) Description 04/10/2022 10:48 AM EDT - 04/10/2022 11:59 PM EDT Hospital Encounter [place] [address] History of breast cancer; Family history of malignant neoplasm of breast; Family history of malignant neoplasm of prostate; Family history of colon cancer Discharge Disposition: Home Social History Tobacco Use Types Packs/Day Years Used Date Smoking Tobacco: Former Cigarettes Q uit: 02/26/1990 Smokeless Tobacco: Never Alcohol Use Standard Drinks/Week Comments No 0 (1 standard drink = 0.6 oz pur e alcohol) Sex and Gender Information Value Date Recorded Sex Assigned at Not on file Gender Identity Not on file Sexual Orientation Not on file documented as of this encounter Medications at Time of Discharge Medication Sig Dispensed Refills Start Date End Date amlodipine (NORVASC) 5 mg tablet Take 10 mg by mouth daily. CALCIUM CARBONATE/VITAMIN D3 (CALCIUM WITH VITAMIN D ORAL)Indications:Adenocarc inoma of breast Take by mouth 2 times daily. venlafaxine (EFFEXOR-XR) 37.5 mg 24 hr capsuleIndications:Breast cancer Take 37.5 mg by mouth daily. multivitamin (THERAGRAN) tablet 08/21/2010 documented as of this encounter Plan of Treatment Not on file documented as of this encounter Procedures Procedure Name Priority Date/Time Associated Diagnosis Comments RESEARCH VENIPUNCTURE Routine 04/10/2022 10:55 AM EDT History of breast cancer Family history of malignant neoplasm of breast Family history of malignant neoplasm of prostate Family history of colon cancer documented in this encounter Results * Research Venipuncture (04/10/2022 10:55 AM EDT) Research Venipuncture Drawn [facility] Blood 04/10/2022 10:5 5 AM EDT 04/10/2022 11:01 AM EDT Narrative Resulting Agency Comment Spec In Lab Raul Mckenzie MD [place] [address] documented in this encounter Visit Diagnoses Diagnosis History of breast cancer Personal history of malignant neoplasm of breast Family history of malignant neoplasm of breast Family history of malignant neoplasm of prostate Family history of colon cancer Family history of malignant neoplasm of gastrointestinal tract documented in this encounter Care Teams Water Treatment Plant Operator Relationship Specialty Start Date End Date Suzanne De Guzman MD [address] [place] [address] PCP - General 08/16/13 documented as of this encounter
--- OUTSIDE RECORDS SUMMARY | 2024-09-30 11:32 | XMS_ITS | Encounter Summary ---
[place] [address] Care Team Providers Care Melt Helper Name Role Phone Suzanne De Guzman MD Primary Care Provider [phone] Encounter Details Date Type Department Care Team (Late st Contact Info) Description 05/19/2016 Telephone Hematology [place] [phone] Delmy Bruner LGC Social History Tobacco Use Types Packs/Day Years Used Date Smoking Tobacco: Former Cigarettes Q uit: 02/26/1990 Smokeless Tobacco: Never Alcohol Use Standard Drinks/Week Comments No 0 (1 standard drink = 0.6 oz pur e alcohol) Sex and Gender Information Value Date Recorded Sex Assigned at Not on file Gender Identity Not on file Sexual Orientation Not on file documented as of this encounter Miscellaneous Notes * Telephone Encounter - Delmy Bruner LGC - 05/19/2016 7:53 PM EDT I called Ligia to let her know that her Comprehensive and BRACAnalysis Rearrangement Test (JHONY), atest which looks for sequencing alterations, as well as deletions, duplications and rearrangements in the BRCA1 and BRCA2 genes, previously performed by [facility] in 2006 and is now completely negative or normal. In the past, the test result reported a variant of uncertain significance in the BRCA1 gene which since then has been reclassified to a benign polymorphism that is no longer reported. I discussed the option of additional testing for other genes associated with a higher risk of breast cancer, such as [facility] BreastNext Panel. We reviewed the benefits, risks and limitations of thistest. Ligia is aware that we do not have a lot of data available on the specific cancer risks associated with some of the genes tested by these panels. In addition, it is possible to identify variants in these genes which we may not know how to interpret at this time. Ligia was interested in meeting with us in the near future to discuss this option in more detail. She asked our stenographer secretary to contact her at the end of June to schedule an appointment. documented in this encounter Plan of Treatment Not on file documented as of this encounter Visit Diagnoses Not on filedocumented in this encounter Care Teams Melt Helper Relationship Specialty Start Date End Date Suzanne De Guzman MD [address] [place] [address] PCP - General 08/16/13 documented as of this encounter
--- OUTSIDE RECORDS SUMMARY | 2024-09-30 11:32 | XMS_ITS | Encounter Summary ---
[place] [address] Care Team Providers Care Dog Pound Attendant Name Role Phone Suzanne De Guzman MD Primary Care Provider [phone] Reason for Visit * Reason Comments Skin Check Encounter Details Date Type Department Care Team (Late st Contact Info) Description 02/23/2014 4:00 PM EDT Office Visit Dermatology at [address] [phone] Willie Field MD [address] [facility] [place] [address] History of basal cell carcinoma (Primary Dx); Psoriasiform dermatitis Social History Tobacco Use Types Packs/Day Years [...] Progress Notes * Willie Field MD - 02/23/2014 5:23 PM EDT Problem: 1. Followup psoriasiform hand dermatitis. 2. Skin check. 3. History of BCCA, right lateral infraorbital fold, January 2003. 4. History of skin cancer in a paternal grandmother, question melanoma. 5. History of breast CA status post bilateral mastectomies. Ligia follows up and states that while she was previously followed by Dr. Mckeon for her skin cancers, his departure from [facility] now has led her to seek skin check with me again. I have been following her for psoriasiform hand and foot dermatitis and treating her until last June with oral cyclosporine. She states that after she stopped it her dermatitis has again been a problem, although it never really totally cleared while she was on it either. Physical examination again reveals hyperkeratosis of the palmar hands, which is fairly minimal today, but present on the fingertips with some fissuring, also along the heels of both feet. 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 Examination of the face reveals no evidence of recurrent BCCA at the right lateral infraorbital fold, and indeed it is difficult to see the biopsy site, seeing as it has healed quite nicely. Otherwise examination of the head reveals a seborrheic keratosis in the right parietal scalp. She is fair skinned and blue eyed but otherwise has a benign examination of the head and the neck the chest, the back, hands, arms, forearms, thighs, and calves. Assessment and Plan: 1. Psoriasiform hand and foot dermatitis. a. Discussed with patient this problem which seemed to develop as a new problem after treatment with losartan. b. No known family history of psoriasis. c. Explained the unpredictable nature of psoriasis, how it could develop even without a specific trigger and in a person with potentially no known family history of the disease. Discussed the need for ongoing symptomatic therapy, and we will today begin clobetasol cream applying b.i.d. to affected areas. Apply as needed but then taper and just use a good emollient such as Bag Leiter or even CeraVe cream, which she does like. d. Discussed the possible need at some point to again use oral therapies. We had used cyclosporine in the past, I think with good results. Other options might be methotrexate. We will try, however, with just a simple topical approach to control things now. e. 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 2. History of nonmelanoma cutaneous malignancies. a. Patient reassured about benign skin check today. b. No evidence of any recurrent skin cancer. c. We will attempt again to obtain old medical records on Dr. Mckeon's treatments of her from [facility]. Return to clinic in one year for repeat check. COPY: Bobbi Blum M.D. Note: Half an hour spent with the patient, more than half spent in counseling. documented in this encounter Plan of Treatment Not on file documented as of this encounter Visit Diagnoses Diagnosis History of basal cell carcinoma- Primary Personal history of other malignant neoplasm of skin Psoriasiform dermatitis Other psoriasis and similar disorders documented in this encounter Care Teams Dog Pound Attendant Relationship Specialty Start Date End Date Suzanne De Guzman MD [address] [place] [address] PCP - General 08/16/13 documented as of this encounter
--- OUTSIDE RECORDS SUMMARY | 2024-09-30 11:32 | XMS_ITS | Encounter Summary ---
Author Organization [facility] Address [address] [place] [address] Care Team Providers Care Helicopter Crew Chief Name Role Phone Unknown, Provider Primary Care Provider Inessa ilable Encounter Details Date Type Department Care Team (Late st Contact Info) Description 04/11/2014 Results Only [facility] Laboratory Services - [facility] ([facility]) [address], [place] [address] Jeny Rae MD [address] [place] [address] [place] [address] Social History Tobacco Use Types Packs/Day Years [...] Procedure Name Priority Date/Time Associated Diagnosis Comments PAP TEST- RESULT ONLY Routine 04/11/2014 0:00 EDT documented in this encounter Results * PAP TEST- RESULT ONLY (04/11/2014 0:00 EDT) Pathology Report: CYTOPATHOLOGY REPORT Reports generated via electronic interface contain original data; however they are lacking the format of the original report. Caution should be taken when reading/interpreti ng unformatted reports. Name: ? LIGIA PATEL ? Accession #: ? [id number] ? : ? 1955 (Age: 58) ??F ?Collect Date: ? 04/11/2014 ? Location: ? [facility] ? Receive Date: ? 04/12/2014 ? Provider: JENY RAE MD Copy to: MICHELLE PHAM MD ? Final Report SPECIMEN ADEQUACY ? Satisfactory for Evaluation - assessment of transformation zone component not applicable ( e.g. atrophy, vaginal sample, hysterectomy) - scant squamous epithelial component GENERAL CATEGORIZATION ? Negative for Intraepithelial Lesion or Malignancy ?? Last Menstrual Period: 2004 Specimen/Source: ??Pap Test, Cervix/Endocervix, ThinPrep Imaging System with manual evaluation Document reviewed and electronically signed by: ? Gunjan Ernandez, CT(ASCP) ? Report ??Date: 04/18/2014 09:39 HPV with Pap Test ? Date Ordered: ? 04/18/2014 ? Status: ?? Signed Out ?Date Complete: ? 04/20/2014 ? By: ??System Interface ? Date Reported: ? 04/20/2014 ? Interpretation RESULT: Negative for HPV. No E6 or E7 mRNA is detected from HPV types 16,18,31,33,35, 39,45,51,52,56,58, 59,66, and 68 by horologist apprentice mediated amplification. Comments Document reviewed and electronically signed by: ? System Interface ? Report date: 04/20/2014 By the signature above, the attending physician certifies that he/she has personally conducted a gross and/or microscopic examination of the described specimens and rendered or confirmed the above diagnosis. End of Report [facility] 04/11/2014 04/12/2014 us Jeny Rae MD PATHOLOGY ORDERABLES Final Resu lt Performing Organization Address City/State/[facility] Co de Phone Number [facility] [address] [place] [address] documented in this encounter Visit Diagnoses Not on filedocumented in this encounter Care Teams Helicopter Crew Chief Relationship Specialty Start Date End Date Unknown, Provider, PCP - General 05/03/09 documented as of this encounter
--- OUTSIDE RECORDS SUMMARY | 2024-09-30 11:32 | XMS_ITS | Encounter Summary ---
[place] [address] Care Team Providers Care Waterworks Employee Name Role Phone Suzanne De Guzman MD Primary Care Provider [phone] Reason for Visit * Reason Comments Follow-up Encounter Details Date Type Department Care Team (Late st Contact Info) Description 08/16/2013 4:35 PM EST Office Visit Dermatology at [address] [phone] Willie Field MD [address] [facility] [place] [address] Psoriasiform dermatitis (Primary Dx) Social History Tobacco [...] Sign Reading Time Taken Comments Blood Pressure 116/72 08/16/2013 4:43 PM EST Pulse - - Temperature - - Respiratory Rate - - Oxygen Saturation - - Inhaled Oxygen Concentration - - Weight - - Height - - Body Mass Index - - documented in this encounter Progress Notes * Willie Field MD - 08/16/2013 4:55 PM EST Problem: Psoriasiform hand dermatitis. Ligia follows up, and on 100 mg of cyclosporin a day for the last few weeks and a taper before that, she continues to do well. Physical examination reveals that the hyperkeratosis of the palmar hands remains clear, although as expected for this time of year, she does have some dryness and fissuring at the tips. She has no stigmata of psoriasis. Blood pressure today is good at 116/72. Assessment and Plan: Psoriasiform hand dermatitis. a. Taper the cyclosporin to just 100 mg one every other day until she finishes her six remaining pills. b. Continue using CeraVe cream and aggressive emollient therapy. c. The patient knows to contact me if she has any flare of her dermatitis; otherwise, return to the clinic in another year for repeat skin checkup. COPY: Bobbi Blum M.D. documented in this encounter Plan of Treatment Not on file documented as of this encounter Visit Diagnoses Diagnosis Psoriasiform dermatitis- Primary Other psoriasis and similar disorders documented in this encounter Care Teams Waterworks Employee Relationship Specialty Start Date End Date Suzanne De Guzman MD [address] [place] [address] PCP - General 08/16/13 documented as of this encounter
--- OUTSIDE RECORDS SUMMARY | 2024-09-30 11:32 | XMS_ITS | Encounter Summary ---
[facility] [place] [address] Care Team Providers Care Rug Renovator Name Role Phone Suzanne De Guzman MD Primary Care Provider [phone] Reason for Visit * Reason Onset Date Comments Results 05/01/2022 Encounter Details Date Type Department Care Team (Late st Contact Info) Description 05/01/2022 Telephone Hematology [place] [id number] Gino Perez V [facility] Dr Hematology/[place] [address] Results Social History Tobacco Use Types Packs/Day Years [...] encounter Miscellaneous Notes * Telephone Encounter - Gino Perez V [facility] - 05/01/2022 10:51 AM EDT This test result was discussed with the patient by phone. A copy of the test results have been scanned in the medical record and sent to Ligia. A summary of the results is provided below. Please be advised that [place] law requires that all health care workers respect the confidentiality of this information and not pass it along to other health care providers, insurance companies, or individuals without the written permission of the patient. The Familial Cancer Program welcomes any questions about these matters. Our phone number is: [phone]. On 04/10/2022 Ligia was seen for genetic counseling and subsequently underwent genetic testing for a hereditary predisposition to cancers in eight major organ systems including breast, gynecologic, gastrointestinal, endocrine, genitourinary, skin, brain/nervous system, sarcoma and hematologic. Following are the results of this test. 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 The following 77 genes were analyzed: AIP, ALK, APC, MANJULA, AXIN2, BAP1, BARD1, BLM, BMPR1A, BRCA1, BRCA2, BRIP1, CDC73, CDH1, CDK4, CDKN1B, CDKN2A, CHEK2, CTNNA1, DICER1, FANCC, FH, FLCN, GALNT12, KIF1B, LZTR1, MAX, MEN1, MET, MLH1, MSH2, MSH3, MSH6, MUTYH, NBN, NF1, NF2, NTHL1, PALB2, PHOX2B, PMS2,POT1, HCRRS2D, PTCH1, PTEN, RAD51C, RAD51D, RB1, RECQL, RET, SDHA, SDHAF2, SDHB, SDHC, SDHD, SMAD4,SMARCA4, SMARCB1, SMARCE1, STK11, SUFU, FPKF766, TP53, TSC1, TSC2, VHL and XRCC2 (sequencing and deletion/duplication); EGFR, EGLN1, HOXB13, KIT, MITF, PDGFRA, POLD1 and POLE (sequencing only); EPCAMand GREM1 (deletion/duplication only). Interpretation: The most significant consequences of carrying one non-working copy of the MANJULA gene are increased risks for breast, and pancreatic cancer. For a female who has not had cancer, lifetime risk of breast cancer is approximately 15-40% compared to a ~12% lifetime risk for the general [place] population. The risk for a second, primary breast cancer has not been established. This risk is about 6% in the general population. With an MANJULA mutation it may be up to twice this (10-12%). Studies indicate that at least for some MANJULA mutations there is an increased risk for contralateral breast cancer related to radiation scatter during radiation of the affected breast. The risk for pancreatic cancer is approximately 5-10% compared to about 1-2% in the general population. The absolute risk for ovarian cancer is less than 3% compared to the general population's risk of about 1.5%. The risk for prostate cancer may be increased but this is not certain. It is important tokeep in mind that not all individuals who inherit a mutation in the MANJULA gene will develop cancer. We reviewed dominant inheritance. With this type of inheritance you only need to inherit one copy of the altered gene to have an increased risk for cancer. Since we all have 2 copies of each gene, one from each parent, there is a 50% chance for each child of a parent who has the mutation to inheritthe normal copy of the gene and not be at increased risk for the cancer running in the family. There is also a 50% chance for each child to inherit the altered copy of the gene and therefore be at increased risk for cancer. ??? Martins children each have a 50% (1/2) chance of having inherited the altered gene. They shouldbe offered genetic testing to learn whether they are at increased risk. Due to the issues of informed consent among minors, lack of proven surveillance and prevention strategies, and concerns about stigmatization and discrimination, we do not test minors (children under age 18). ??? Each of Ligia's siblings has a 50% chance of having inherited the altered gene and should consider testing. o For siblings who decline testing or are , their children (Ligia's nieces and nephews) should consider genetic counseling and testing. ??? Based on your family history, this gene alteration was likely inherited from the maternal side of the family although this is not certain.We would suggest that relatives on both the maternal and paternal side of the family be offered testing. If any aunt, uncle, or cousin tests positive for themutation, this will confirm maternal or paternal inheritance. We are happy to see family members here for genetic counseling and testing. Our scheduling pathology secretary/transcriptionist can be reached at [phone]. Family members can also go to the website of the National Society of Genetic Counselors at www.nsgc.org in order to find a counselor in their area. For individuals considering having children, it is important to that that if an individual inheritstwo non-working copies of the MANJULA gene (one from each parent), it can lead to a rare, autosomal recessive, childhood onset neurodegenerative disorder affecting multiple body systems. Difficulty with c oordinating movements (ataxia) begin in dressage instructor, usually before age 5. This condition is called ataxia-telangiectasia. Should any relatives in reproductive age test positive for the MANJULA mutation, they may want their partner to be tested in order to find out if they are at risk of having a child with ataxia telangiectasia. Reproductive options are also available to those interested in preventing passing this condition to their future children. A consultation with a genetic counselor may be useful for any relatives who may be concerned about reproductive risks. Screening Recommendations: Breast cancer screening As Ligia has previously undergone a bilateral mastectomy, there is no evidence to suggest a need for additional breast imaging. Ligia should continue with physical chest exams with her providers. Ovarian cancer screening ??? Annual or routine pelvic exams as recommended by Ligia's documentation spec or primary care provider ??? There is insufficient evidence to recommend risk reducing salpingo- oophorectomy in MANJULA carriersat this time. Individuals with a family history of ovarian cancer should be managed based on their family history. Pancreatic cancer screening Some families with MANJULA mutations also show an increased incidence of pancreatic cancer. We discussed that two main risk factors in the general population for pancreatic cancer are smoking and heavy drinking. Although there are no clear data on the increased risk of combining smoking and heavy drinking with being an MANJULA carrier, this test result should be thought of as another good reason, among many others, for Ligia not to smoke or drink heavily. We also discussed with Ligia that there is no established screening for pancreatic cancer and that current expert opinion only recommends screeningfor pancreatic cancer in MANJULA carriers with a 1st or 2nd degree relative with pancreatic cancer. This is not the case in Ligia's family. For information surrounding pancreatic cancer screening, an appointment with Dr. Norma Bush,a model artists' [place] [facility] can be made by calling [phone]. Colon cancer screening ?? Periodic colonoscopy screening as recommended by Ligia's model artists'. Skin cancer screening ?? Skin cancer screening and sun protection are important for everyone, regardless of genetic predisposition. ?? Consideration of routine dermatologic/skin exams, as recommended by Ligia's primary care provider or radio despatcher. Ligia and her family should be aware of an online support organization called [employer]: Facing Our Risk of Cancer Empowered which may help with assimilating to her genetic test result. In addition, the ClinicalTrials.gov website will have the most up-to-date information of clinical trials available tothose who have a gene mutation. Finally, it can be difficult for people to predict how they will react to learning about the presence of an altered gene in their families and in themselves. A variety of feelings may occur after learning that one carries a gene alteration. Some individuals experience a sense of relief from knowingand understanding the underlying cause of the cancers in the family or from knowing their personal cancer risk and gene status. Testing may bring up feelings about other relatives who had cancer. It is not uncommon to experience an increase in anxiety, sleeplessness or depression, as a result of worries about one???s current and future health. One may also worry that other family members might have inherited the altered gene. For some, a consultation with a psychologist, high school social studies tutor, or psychiatrist may be helpful in dealing with feelings that may arise from genetic testing. If Ligia would like a referral, we can help to try to recommend a therapist who is familiar with issues surroundinggenetic conditions. documented in this encounter Plan of Treatment Not on file documented as of this encounter Visit Diagnoses Not on filedocumented in this encounter Care Teams Rug Renovator Relationship Specialty Start Date End Date Suzanne De Guzman MD [address] [place] [address] PCP - General 08/16/13 documented as of this encounter
--- OUTSIDE RECORDS SUMMARY | 2024-09-30 11:32 | XMS_ITS | Encounter Summary ---
Author Organization [facility] Address [address] [place] [address] Care Team Providers Care Soda Fountain Manager Name Role Phone Unavailable Primary Care Provider Unavailabl e Encounter Details Date Type Department Care Team (Late st Contact Info) Description 05/01/2009 Orders Only [facility] Medicine [address] [address] Lon Mckeon MD [address] [place], [place] [id number] Social History Tobacco Use Types Packs/Day Years [...] Date/Time Associated Diagnosis Comments SURGICAL PATHOLOGY Routine 05/01/2009 0:00 EDT documented in this encounter Results * SURGICAL PATHOLOGY (05/01/2009 0:00 EDT) Pathology Report: SURGICAL PATHOLOGY REPORT ? Reports generated via electronic interface contain original data; ? however they are lacking the format of the original report. ? Caution should be taken when reading/interpreti ng unformatted reports. ? Name: ? JORGE, LIGIA ? Accession #: ? [id number] ? : ? 1955 (Age: 53) ??F ? Collect Date: ? 05/01/2009 ? Location: ? [facility] ? Receive Date: ? 05/01/2009 ? Provider: LON LUNAO MD ? Copy to: TAHMINA CLINE MD ? Final Pathologic Diagnosis: ? Skin of scalp, right, shave biopsy: ? - Seborrheic keratosis. ? Microscopic Description: ? The stratum corneum is thickened by compact and basketweave orthokeratosis with formation of horn pseudocysts. ??The epidermis is acanthotic with formation of broad and anastomosing trabeculae. ??The trabeculae are composed of basaloid ?? keratinocytes with round uniform nuclei. ??The keratinocytes have a variable ? amount of melanin pigment. ??(Dr. Lyons)/[facility] ? Document reviewed and electronically signed by: ? Benita Lyons MD ? Report ??Date: 05/02/2009 17:02 ? By the signature above, the attending physician certifies that he/she has ? personally conducted a gross and/or microscopic examination of the described ? specimens and rendered or confirmed the above diagnosis. ? Specimen(s) Received: ? Incisional bx scalp, right ? Clinical History: ? Large growth R parietal scalp area, ? brenda keratosis ? Gross Description: ? Received in formalin labelled Ligia Lara and bx right scalp is an ?? irregular portion of sarmiento soft tissue measuring 0.5 x 0.3 x 0.2 cm. ??The specimen is submitted entirely in one cassette. ??(Nancie Hoang)/kmm ? End of Report ? [facility] 05/01/2009 05/01/2009 18: 06 EDT us Lon Mckeon MD PATHOLOGY ORDERABLES Final Resul t [facility] [address] [place] [address] documented in this encounter Visit Diagnoses Not on filedocumented in this encounter
--- OUTSIDE RECORDS SUMMARY | 2024-09-30 11:32 | XMS_ITS | Encounter Summary ---
Author Organization [facility] Address [address] [place] [address] Care Team Providers Care Cabin Furnishings Installer Name Role Phone Unknown, Provider Primary Care Provider Unava ilable Encounter Details Date Type Department Care Team (Late st Contact Info) Description 11/26/2016 Results Only [facility] [phone] Rickie Bosch, DO [address] [facility] [address] [place], [place] [id number] Social History Tobacco Use Types Packs/Day Years [...] Date/Time Associated Diagnosis Comments SURGICAL PATHOLOGY Routine 11/26/2016 9:42 EST documented in this encounter Results * SURGICAL PATHOLOGY (11/26/2016 9:42 EST) Pathology Report: SURGICAL PATHOLOGY REPORT Reports generated via electronic interface contain original data; however they are lacking the format of the original report. Caution should be taken when reading/interpreti ng unformatted reports. Name: ? LIGIA PATEL ? Accession #: ? [id number] ? : ? 1955 (Age: 61) ??F ? Collect Date: ? 11/26/2016 ? Location: ? [facility] ? Receive Date: ? 11/27/2016 ? Provider: RICKIE BOSCH DO Copy to: TAHMINA CLINE MD ? Final Pathologic Diagnosis: CECUM, POLYP, BIOPSY: - ??Two (2) portions of tubular adenoma; negative for high grade dysplasia. - ??Two (2) portions of colonic mucosa with no specific histopathologic features. Document reviewed and electronically signed by: Julio Cesar Frausto MD Report ??Date: 11/28/2016 11:02 By the signature above, the attending physician certifies that he/she has personally conducted a gross and/or microscopic examination of the described specimens and rendered or confirmed the above diagnosis. Specimen(s) Received: Cecal polyp Clinical History: (+) FH colon Ca Gross Description: ? Received in formalin labelled with proper patient identification (initials T, D) and #1 cecal polyp are three sarmiento-yellow polypoid tissues (0.2 x 0.2 x 0.1 cm, 0.3 x 0.2 x 0.1 cm and 0.4 x 0.3 x 0.2 cm). Entirely submitted in 1. Tiffanymallory Diaz 11/27/2016 4:34 PM End of Report [facility] 11/26/2016 9:42 EST 11/27/2016 9:42 EST us Rickie Bosch DO PATHOLOGY ORDERABLES Fi nal Result [facility] [address] [place] [address] documented in this encounter Visit Diagnoses Not on filedocumented in this encounter Care Teams Cabin Furnishings Installer Relationship Specialty Start Date End Date Unknown, Provider, PCP - General 05/03/09 documented as of this encounter
--- OUTSIDE RECORDS SUMMARY | 2024-09-30 11:32 | XMS_ITS | Encounter Summary ---
Author Organization [facility] Address [address] [place] [address] Care Team Providers Care Relations Manager Name Role Phone Unknown, Provider Primary Care Provider Unava ilable Encounter Details Date Type Department Care Team (Late st Contact Info) Description 12/18/1999 Results Only [facility] [address] [place] [address] Nikolas Chávez MD [address] [facility] [address] [place] [address] Social History Tobacco Use Types [...] Priority Date/Time Associated Diagnosis Comments CYTOPATHOLOGY Routine 12/18/1999 13:45 EST documented in this encounter Results * CYTOPATHOLOGY (12/18/1999 13:45 EST) Pathology Report: CYTOPATHOLOGY REPORT Reports generated via electronic interface contain original data; however they are lacking the format of the original report. Caution should be taken when reading/interpreti ng unformatted reports. Name: ? LIGIA PATEL ? Accession #: ? [id number] : ? 1955 (Age: 44) ??F ?Collect Date: ? 12/18/1999 Location: ?Receive Date: ? 12/18/1999 Provider: ?NIKOLAS CHÁVEZ MD Copy to: ?NIKOLAS CHÁVEZ MD ? Specimen/Source: ?Pattern Mechanic ThinPrep Last Menstrual Period: ? GYNECOLOGIC ??CYTOPATHOLOGY ??REPORT Name: JORGELIGIA ? [facility] : 1955 ?? 44Y F ?Client ID: [id number] SS#: [id number] ? Clinician: NIKOLAS CHÁVEZ MD ?? Location: [facility] ??Copy to: ?? Specimen: ?Pattern Mechanic ThinPrep ? Source: Cervix/Endocervix ?Collected: 12/16/99 ? Received: 12/18/1999 ?LMP: ?Hormone Therapy: No ? : No ? Radiation Therapy: ? Post : No ?Chemotherapy: Yes ?IUD: No ? Prev Abnormal Pap: ? Clinical Hx: Tamoxifen therapy. S/P breast ca. 12/25/98 squamous ? metaplasia. Amenorrhea. NL exam. ?(Blank valiente indicate information not provided on requisition) SPECIMEN ADEQUACY: ? Satisfactory For Evaluation ?? GENERAL CATEGORIZATION: ? WITHIN NORMAL LIMITS ? Reviewed And Electronically Signed By: ? Charisse Martinez, CT(ASCP) ? Report Date: ?? 12/24/1999 [employer] Archived Tests - Final Diagnosis Text Field: Clinical History : ;Tamoxifen therapy. S/P breast ca. 12/25/98 squamous metaplasia. Amenorrhea. NL exam. ? Document reviewed and electronically signed by: ? Conversion ? Report Date: ??12/24/1999 00:00 End of Report [facility] 12/18/1999 13:4 5 EST 12/18/1999 13:46 EST us Nikolas Chávez MD PATHOLOGY ORDERABLES Final Resu lt [facility] [address] [place] [address] documented in this encounter Visit Diagnoses Not on filedocumented in this encounter Care Teams Relations Manager Relationship Specialty Start Date End Date Unknown, Provider, PCP - General 05/03/09 documented as of this encounter
--- OUTSIDE RECORDS SUMMARY | 2024-09-30 11:32 | XMS_ITS | Encounter Summary ---
[place] [address] Care Team Providers Care Director Clinical Pharmacology Name Role Phone Suzanne De Guzman MD Primary Care Provider [phone] Encounter Details Date Type Department Care Team (Late st Contact Info) Description 02/14/2015 Orders Only Hematology/Oncology at [address] [phone] Iraida Zhou, BUTTON TUFTER Social History Tobacco Use Types Packs/Day Years [...] on filedocumented in this encounter Care Teams Director Clinical Pharmacology Relationship Specialty Start Date End Date Suzanne De Guzman MD [address] [place] [address] PCP - General 08/16/13 documented as of this encounter
--- OUTSIDE RECORDS SUMMARY | 2024-09-30 11:32 | XMS_ITS | Encounter Summary ---
Author Organization [facility] Address [address] [place] [address] Care Team Providers Care Alligator Shear Operator Name Role Phone Unknown, Provider Primary Care Provider Inessa ilable Encounter Details Date Type Department Care Team (Late st Contact Info) Description 07/15/2021 Lab Requisition [facility] Pathology & Laboratory Medicine - [facility] [address], [place] [id number] Outr Resulting Lab, Provider Social History Tobacco [...] Comments ZZCOVID-19 TEST [facility] PCR Today 07/15/2021 11:01 EDT COVID-19 TESTING Routine 07/15/2021 11:0 1 EDT documented in this encounter Results * COVID-19 TEST [facility] PCR (07/15/2021 11:01 EDT) Swab ENTIRE NASOPHARYNX / Unknown 07/15/2021 11:01 EDT 07/15/2021 21:06 EDT us Provider Outr Resulting Lab MICROBIOLOGY - GENER AL ORDERABLES Final Result [facility] [address] [place] [address] * COVID-19 TESTING (07/15/2021 11:01 EDT) COVID-19 rt-PCR Result Negative Negative 07/16/2021 0:00 EDT [facility] Comment: This test has [...] history, and epidemiological information. Performed on the [employer] Mediaher Fusion instrument Performing Lab [place] [facility] 07/16/2021 0:00 EDT [facility] Swab 07/15/2021 11:0 1 EDT 07/15/2021 21:06 EDT us Provider Outr Resulting Lab MICROBIOLOGY - GENER AL ORDERABLES Final Result [facility] [address] [place] [address] documented in this encounter Visit Diagnoses Not on filedocumented in this encounter Care Teams Alligator Shear Operator Relationship Specialty Start Date End Date Unknown, Provider, PCP - General 05/03/09 documented as of this encounter
--- OUTSIDE RECORDS SUMMARY | 2024-09-30 11:32 | XMS_ITS | Encounter Summary ---
Author Organization [facility] Address [address] [place] [address] Care Team Providers Care Daytime Babysitter Name Role Phone Unknown, Provider Primary Care Provider Inessa ilable Encounter Details Date Type Department Care Team (Late st Contact Info) Description 01/06/2011 Results Only [facility] Laboratory Services - [facility] ([facility]) [address], [place] [address] Lon Mckeon MD [address] [place], [place] [id number] Social History Tobacco Use Types Packs/Day Years [...] Date/Time Associated Diagnosis Comments SURGICAL PATHOLOGY Routine 01/06/2011 0:00 EDT documented in this encounter Results * SURGICAL PATHOLOGY (01/06/2011 0:00 EDT) Pathology Report: SURGICAL PATHOLOGY REPORT ? Reports generated via electronic interface contain original data; ? however they are lacking the format of the original report. ? Caution should be taken when reading/interpreting unformatted reports. ? Name: ? JORGE, LIGIA ? Accession #: ? [id number] ? : ? 1955 (Age: 55) ??F ? Collect Date: ? 01/06/2011 ? Location: ? [facility] ? Receive Date: ? 01/07/2011 ? Provider: LON WALKO MD ? Copy to: TAHMINA BERRIAN MD ? Final Pathologic Diagnosis: ? A. ?Skin of alevism, right, shave biopsy: ? 1. ?Actinic keratosis. ??See microscopic and comment. ? B. ?Skin of back, right, shave biopsy: ? 1. ?Lichenoid actinic keratosis. ? Comment: ? In specimen (A), the lesion overall has an architecture of a seborrheic ? keratosis. ??However, multiple foci of keratinocyte atypia are identified, ? consistent with an actinic keratosis. ??Despite deeper levels on both specimens, there is no evidence of basal cell carcinoma. ??(Dr. Cross)/avelina ? Microscopic Description: ? (A) ?The stratum corneum is thickened by laminated orthohyperkeratosis. The epidermis is hyperplastic with papillomatosis and acanthosis. ??The ? keratinocytes have a basaloid appearance with round regular nuclei. ??Within the basal zone, is nuclear enlargement with associated dispolarity and overlap. ? Deeper levels have been examined. ? (B) ?The stratum corneum is thickened by orthohyperkeratosis with foci ?? of parakeratosis. ??The epidermis is focally thickened with elongate and bulbous rete ridges. ??The basal keratinocytes show a variable degree of atypia including nuclear enlargement, dispolarity, and hyperchromasia. ??The dermis is marked by ?? solar elastosis, vascular ectasia and a lymphohistiocytic infiltrate, which ? obscures the dermal-epidermal junction. ??Deeper levels have been examined. ??(Dr. Cross)/avelina ? Document reviewed and electronically signed by: ? SARAVANAN A MABEL MD ? Report ??Date: 01/09/2011 13:48 ? By the signature above, the attending physician certifies that he/she has ? personally conducted a gross and/or microscopic examination of the described ? specimens and rendered or confirmed the above diagnosis. ? Specimen(s) Received: ? A. ?Right alevism shave biopsy ? B. ? Right back shave biopsy ? Clinical History: ? H/O BCC; ? AKs ? Gross Description: ? Received in formalin labelled Ligia Lara and Tomasa salazar shave bx is a 0.5 x 0.3 x 0.1 cm tiesha renee. ??The specimen is submitted ?? intact as (A). ? Received in formalin labelled Ligia Lara and R back shave bx is a 0.4 x ?? 0.2 cm irregular shave biopsy of sarmiento-white skin. ??The specimen is submitted ? intact as (B). ??(A. Tomeka)/ljn ? End of Report ? [facility] 01/06/2011 01/07/2011 8:2 4 EDT us Lon Mckeon MD PATHOLOGY ORDERABLES Final Resul t [facility] [address] [place] [address] documented in this encounter Visit Diagnoses Not on filedocumented in this encounter Care Teams Daytime Babysitter Relationship Specialty Start Date End Date Unknown, Provider, PCP - General 05/03/09 documented as of this encounter
--- OUTSIDE RECORDS SUMMARY | 2024-09-30 11:32 | XMS_ITS | Encounter Summary ---
Author Organization [facility] Address [address] [place] [address] Care Team Providers Care Management Assistant Name Role Phone Unknown, Provider Primary Care Provider Inessa dozier Encounter Details Date Type Department Care Team (Late st Contact Info) Description 02/14/2010 Results Only [facility] Laboratory Services - [facility] ([facility]) [address], [place] [address] Jeny Rae MD [address] [place] [address] [place] [address] Social History Tobacco Use Types Packs/Day Years [...] Priority Date/Time Associated Diagnosis Comments CYTOPATHOLOGY Routine 02/14/2010 0:00 EDT documented in this encounter Results * CYTOPATHOLOGY (02/14/2010 0:00 EDT) Pathology Report: CYTOPATHOLOGY REPORT ? Reports generated via electronic interface contain original data; ? however they are lacking the format of the original report. ? Caution should be taken when reading/interpreti ng unformatted reports. ? Name: ? LIGIA PATEL ? Accession #: ? [id number] ? : ? 1955 (Age: 54) ??F ?Collect Date: ? 02/14/2010 ? Location: ? [facility] ? Receive Date: ? 02/15/2010 ? Provider: ?JENY RAE MD ? Copy to: ? Specimen/Source: ?Pap Test, Cervix/Endocervix, ThinPrep Imaging System ? with manual evaluation ? Last Menstrual Period: ? Treatment History: ? Miscellaneous treatment: S/p BSO 01/05 ? Other: ? Additional clinical information: S/p Breast Cancer ? HPVA - HPV testing requested if ASC-US on the current ThinPrep Pap test. ? SPECIMEN ADEQUACY ? Satisfactory for Evaluation ? - transformation zone component present ? GENERAL CATEGORIZATION ? Negative for Intraepithelial Lesion or Malignancy ? Document reviewed and electronically signed by: ? Margaret Ramírez, CT(ASCP)(IAC) ? Report Date: ??02/20/2010 17:14 ? End of Report ? [facility] 02/14/2010 02/15/2010 us Jeny Rae MD PATHOLOGY ORDERABLES Final Resu lt [facility] [address] [place] [address] documented in this encounter Visit Diagnoses Not on filedocumented in this encounter Care Teams Management Assistant Relationship Specialty Start Date End Date Unknown, Provider, PCP - General 05/03/09 documented as of this encounter
--- OUTSIDE RECORDS SUMMARY | 2024-09-30 11:32 | XMS_ITS | Encounter Summary ---
[facility] [place] [address] Care Team Providers Care Manager Port Name Role Phone Suzanne De Guzman MD Primary Care Provider [phone] Encounter Details Date Type Department Care Team (Late st Contact Info) Description 09/16/2013 3:00 PM EST Follow-Up Hematology Oncology at [address] [id number] Jesu Post MD Adenocarcinoma of breast, left (Primary Dx) Discharge Disposition: Home Social History Tobacco Use [...] Sign Reading Time Taken Comments Blood Pressure 141/78 09/16/2013 3:08 PM EST Pulse 71 09/16/2013 3:08 PM EST Temperature 36.9 ??C (98.4 ??F) 09/16/2013 3:08 PM ES T Respiratory Rate 18 09/16/2013 3:08 PM EST Oxygen Saturation 97% 09/16/2013 3:08 PM EST Inhaled Oxygen Concentration - - Weight 88.5 kg (195 lb) 09/16/2013 3:08 PM EST Height 175.7 cm (5' 9.17) 09/16/2013 3:08 PM ES T copied Body Mass Index 28.65 09/16/2013 3:08 PM EST documented in this encounter Progress Notes * Jesu Post MD - 09/16/2013 3:36 PM EST Images from the original note were not included. Subjective: Patient ID: Ligia Lara is a 58 y.o. female. HPI Comments: Patient returns for f/u now more than 14 years from diagnosis and treatment for a carcinoma of the breast presenting when she was 43 years old. She has a sister who developed breast cancer at the age of 28 during . In the interval since her last visit her mother was diagnosedwith and treated for breast carcinoma. She and her mother consulted the familial cancer program andgenetic testing was apparently negative. Following adjuvant chemotherapy she underwent prophyllactic breast resection and oophorectomy. She has been on residential adjuvant therapy first with tamoxifenand supsequently Femara. She has been on Femara for 5+ years and is tolerating it well. Her last DEXA 03/29/13 showed normal BMD although it had decreased a bit from the study 2 years earlier. She takes calcium and Vitamin D and is an avid walker. She has had no symptoms or problems suggestive of disease recurrence. Stage 1 adenocarcinoma - left breast a. [...] with aromatase inhibitors following five years oftamoxifen Last f/u 09/16/13 continues on letrozole Strong family history of cancer. Sister with invasive breast cancer at the age of 28. Another sister with lung cancer who was a smoker. Two maternal aunts have also had breast cancer. Both aunt has also had colon cancer and is alive and well. The patient has other family members with lung cancer, but they were smokers Review of Systems Constitutional: Negative for fever, activity change, appetite change, fatigue and unexpected weightchange. HENT: Negative. Eyes: Negative. Respiratory: Negative for cough, shortness of breath and wheezing. Cardiovascular: Negative for chest pain, palpitations and leg swelling. Gastrointestinal: Negative for nausea, abdominal pain, diarrhea, constipation, blood in stool and abdominal distention. Genitourinary: Negative for dysuria, frequency, hematuria, flank pain, vaginal bleeding, vaginal discharge and difficulty urinating. Musculoskeletal: Negative for myalgias, back pain and arthralgias. Skin: Negative for pallor and rash. Neurological: Negative. Hematological: Negative. Psychiatric/Behavioral: Negative. Objective: Physical Exam Vitals reviewed. Constitutional: She is oriented to person, place, and time. She appears well- developed and well-nourished. No distress. HENT: Head: Normocephalic and atraumatic. Eyes: Conjunctivae normal and EOM are normal. Pupils are equal, [...] mood and affect. Her behavior is normal. BP 141/78 Pulse 71 Temp 36.9 ??C (98.4 ??F) (Oral) Resp 18 Ht 175.7 cm (5' 9.17) Wt 88.451 kg (195 lb) BMI 28.65 kg/m2 SpO2 97% LAB: 09/05/13 CBC WBC 7.7 ANC 4.0 H/H 12.2/37.0 Plat 293 CMP BS 69 Ca 9.0 BUN 18 Creat 0.8 Na 138 K 4.4 Cl 102 CO2 26 AST 25 ALT 29 AP 86 date CA 27.29 09/05/13 29.9 03/09/13 24.2 09/23/12 25.5 02/06/12 [...] recurrent disease of other significant new problems. Providing there are no interval problems she will return for f/u in 6 months with the usual lab studies. We discussed the present feelings about the duration of AI therapy and the lack of new data and she would like to continue letrozole. Her bone mineral density is fine. She will be in touch in the interim if there are problems or questions. Current Outpatient Prescriptions on File Prior to Visit Medication Sig Dispense Refill ??? amlodipine (NORVASC) 5 mg tablet Take 5 mg by mouth daily. ??? montelukast (SINGULAIR) 10 mg tablet Take 10 mg by mouth nightly. ??? letrozole (FEMARA) 2.5 mg tablet Take 1 tablet by mouth daily. 90 tablet 3 ??? CALCIUM CARBONATE/VITAMIN D3 (CALCIUM WITH VITAMIN D ORAL) Take by mouth 2 times daily. ??? venlafaxine (EFFEXOR-XR) 37.5 mg 24 hr capsule Take 37.5 mg by mouth daily. ??? multivitamin (THERAGRAN) tablet ??? [DISCONTINUED] losartan-hydrochlorothiazide (HYZAAR) 50-12.5 mg per tablet Take 1 tablet by mouth daily. Patient Active Problem List Diagnosis Code ??? Adenocarcinoma of breast 174.9 ??? Hypertension 401.9 ??? 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 Psoriasis 696.1 PCP: Bobbi Blum MD Other Providers: Michael Nolasco MD documented in this encounter Procedure Notes * Provider, Scanning - 03/16/2014 1:41 PM EDTAssociated Order(s): SCAN DOC: LAB documented in this encounter Miscellaneous Notes * Advance Care Plan Note - Maria M Mitchell RN - 09/16/2013 3:11 PM EST ADVANCE CARE PLANNING NOTE I. WHEN TO USE THIS FORM: This Advance Care Planning Note should be used for patients with decisional capacity who have not executed advance directives, such as a Durable Power of Nsh Teacher for Health Care. DETERMINATION OF CAPACITY The basis for decisional capacity entails all of the following criteria. The patient, Ligia Lara, must be able (in a general way) to understand: ?? Her condition ?? Treatment alternatives ?? Potential benefits and risks of proposed treatments/interventions The patient has the capacity to make decisions: Yes If the patient does not have decisional capacity, go no further. This form cannot be used. II. DESIGNATION OF DECISION MAKER The patient, Ligia Lara, expresses the following preference: Designation of health care agent: The patient, Ligia Lara, identifies the following individual to serve as a health care agent, authorized to speak for the individual in making medical treatment decisions in the future if he/she is unable to speak for him/herself. Name: Elvin Lara Relationship to patient: spouse documented in this encounter Plan of Treatment Not on file documented as of this encounter Procedures Procedure Name Priority Date/Time Associated Diagnosis Comments LAB SCAN 03/16/2014 1:41 PM EDT documented in this encounter Results * SCAN DOC: LAB (03/16/2014 1:41 PM EDT) Narrative 03/16/2014 1:41 PM EDT Procedure Note Provider, Scanning - 03/16/2014 1:41 PM EDT Scanning Provider MEDIA MGR SCAN EXT O RDR/RSLT documented in this encounter Visit Diagnoses Diagnosis Adenocarcinoma of breast, left- Primary documented in this encounter Care Teams Manager Port Relationship Specialty Start Date End Date Suzanne De Guzman MD [address] [place] [address] PCP - General 08/16/13 documented as of this encounter
--- OUTSIDE RECORDS SUMMARY | 2024-09-30 11:32 | XMS_ITS | Encounter Summary ---
Author Organization [facility] Address [address] [place] [address] Care Team Providers Care Internal Combustion Engine Subassembler Name Role Phone Unknown, Provider Primary Care Provider Unava ilable Encounter Details Date Type Department Care Team (Late st Contact Info) Description 12/27/2001 Results Only [facility] conversion [address] [place] [address] Nikolas Chávez MD [address] [facility] [address] [place] [address] Social History Tobacco Use Types [...] Priority Date/Time Associated Diagnosis Comments CYTOPATHOLOGY Routine 12/27/2001 0:00 EST documented in this encounter Results * CYTOPATHOLOGY (12/27/2001 0:00 EST) Pathology Report: CYTOPATHOLOGY REPORT Reports generated via electronic interface contain original data; however they are lacking the format of the original report. Caution should be taken when reading/interpreti ng unformatted reports. Name: ? LIGIA PATEL ? Accession #: ? [id number] : ? 1955 (Age: 46) ??F ?Collect Date: ? 12/27/2001 Location: ? [facility] ? Receive Date: ? 12/28/2001 Provider: ?NIKOLAS CHÁVEZ MD Copy to: ? Specimen/Source: ?ThinPrep Pap Test, Cervix/Endocervix Last Menstrual Period: ? 09/04 Menstrual/Pregnanc y Status: ? Post Menopausal Treatment History: ? Chemotherapy: following Cervical biopsy: endo neg 01/03 ? SPECIMEN ADEQUACY ? Satisfactory for Evaluation - transformation zone component present GENERAL CATEGORIZATION ? Negative for Intraepithelial Lesion or Malignancy ? Document reviewed and electronically signed by: ? AMY Brooks(ASCP) ? Report Date: ??12/31/2001 08:15 End of Report [facility] 12/27/2001 12/28/2001 us Nikolas Chávez MD PATHOLOGY ORDERABLES Final Resu lt [facility] [address] [place] [address] documented in this encounter Visit Diagnoses Not on filedocumented in this encounter Care Teams Internal Combustion Engine Subassembler Relationship Specialty Start Date End Date Unknown, Provider, PCP - General 05/03/09 documented as of this encounter
--- OUTSIDE RECORDS SUMMARY | 2024-09-30 11:32 | XMS_ITS | Encounter Summary ---
Author Organization [facility] [place] [address] Care Team Providers Care Mva Still Operator Name Role Phone Suzanne De Guzman MD Primary Care Provider [phone] Encounter Details Date Type Department Care Team (Latest Contact Info) Description 11/13/2017 11:15 AM EST Office Visit Hematology/Oncology at [address] [phone] Iraida Zhou APRN Adenocarcinoma of left breast Social History Tobacco Use Types Packs/Day Years [...] Sign Reading Time Taken Comments Blood Pressure 138/75 11/13/2017 11:08 AM EST Pulse 65 11/13/2017 11:08 AM EST Temperature 36.6 ??C (97.9 ??F) 11/13/2017 11:[address] Respiratory Rate 16 11/13/2017 11:08 AM EST Oxygen Saturation 98% 11/13/2017 11:08 AM EST Inhaled Oxygen Concentration - - Weight 93.9 kg (207 lb) 11/13/2017 11:08 AM EST Height 175.3 cm (5' 9.02) 11/13/2017 11:[address] Body Mass Index 30.55 11/13/2017 11:08 AM EST documented in this encounter Progress Notes * Iraida Zhou APRN - 11/13/2017 11:15 AM EST Images from the original note were not included. Subjective: Patient ID: Ligia Lara is a 62 y.o. female. HPI Comments: Patient returns for f/u now more than 20 years from diagnosis and treatment for a [...] breast resection andoophorectomy. She has been on director long term care adjuvant therapy first with tamoxifen and supsequently [...] trying to care for her mother in [place] who has issues with dementia and there [...] for pallor and rash. Neurological: Negative. Psychiatric/Behavioral: Negative for agitation and dysphoric mood. The patient is not nervous/anxious. Considerable stress over her mother in [place] Objective: Physical Exam Constitutional: She is oriented [...] Her behavior is normal. Vitals reviewed. BP 138/75 (Patient Position: Sitting) Pulse 65 Temp 36.6 ??C (97.9 ??F) (Oral) Resp 16 Ht 175.3 cm (5' 9.02) Wt 93.9 kg (207 lb) SpO2 98% BMI 30.55 kg/m2 Wt Readings from Last 3 Encounters: 11/13/17 93.9 kg (207 lb) 11/06/16 92.5 kg (204 lb) 11/08/15 91.6 kg (202 lb) LAB: date CA 27.29 03/19/15 25.4 09/05/13 [...] recurrent disease of other significant new problems. She is now over 20 years out from her diagnosis and subsequently had 11 years on Femara. Shestopped in April 2016. She is doing great and ready to return to her PCP for care. She will be discharged from clinic although I told her that should she ever need us again, she is more than welcome to call. Current Outpatient Prescriptions on File Prior to [...] ??? History of basal cell carcinoma Z85.828 Iraida Zhou, MSN, [employer], AOCN Hematology/Oncology Nurse Practitioner [place], [place] [phone] documented in this encounter Plan of Treatment Not on file documented as of this encounter Visit Diagnoses Diagnosis Adenocarcinoma of left breast documented in this encounter Care Teams Mva Still Operator Relationship Specialty Start Date End Date Suzanne De Guzman MD [address] [place] [address] PCP - General 08/16/13 documented as of this encounter
--- OUTSIDE RECORDS SUMMARY | 2024-09-30 11:32 | XMS_ITS | Encounter Summary ---
Author Organization [facility] Address [address] [place] [address] Care Team Providers Care Measurement Psychologist Name Role Phone Unknown, Provider Primary Care Provider Unava ilable Encounter Details Date Type Department Care Team (Late st Contact Info) Description 06/28/2002 Results Only [facility] [address] [place] [address] Suzanne De Guzman MD [address] [place], [place] [address] Social History Tobacco Use Types Packs/Day Years [...] Date/Time Associated Diagnosis Comments SURGICAL PATHOLOGY Routine 06/28/2002 0:00 EDT documented in this encounter Results * SURGICAL PATHOLOGY (06/28/2002 0:00 EDT) Pathology Report: SURGICAL PATHOLOGY REPORT Reports generated via electronic interface contain original data; however they are lacking the format of the original report. Caution should be taken when reading/interpreti ng unformatted reports. Name: ? LIGIA PATEL ? Accession #: ? [id number] ? : ? 1955 (Age: 46) ??F ? Collect Date: ? 06/28/2002 ? Location: ? [facility] ? Receive Date: ? 06/29/2002 ? Provider: SUZANNE DE GUZMAN MD Copy to: JAMES DIGGS MD ? Final Pathologic Diagnosis: A. ?Skin of chest, anterior, shave biopsy: 1. ?Seborrheic keratosis. B. ?Skin of axilla, left, shave biopsy: ? 1. ?? Melanocytic nevus, intradermal type. Document reviewed and electronically signed by: Benita Lyons MD Report ??Date: 06/30/2002 16:11 By the signature above, the attending physician certifies that he/she has personally conducted a gross and/or microscopic examination of the described specimens and rendered or confirmed the above diagnosis. Specimen(s) Received: A. ?Ant chest (#1) B. ?L axilla (#2) Clinical History: ? A 7 mm brown based lesion with raised clear/flesh area with some friability, R/O basal cell CA; B ??fleshy brown pedunculated nevus ??not concerned for malignancy Gross Description: ? Received in formalin labelled Jane and ant chest is a 0.6 x 0.5 x 0.2 cm shave biopsy of skin. ??The skin surface is sarmiento-white with a central white papule which measures 0.2 cm in diameter. ??The specimen is bisected and submitted entirely as (A). Received in formalin labelled Jane and L axilla is a 0.6 x 0.5 x 0.2 cm shave biopsy of skin. ??The skin surface has a sarmiento-white papule which measures 0.3 cm in diameter. ??The specimen is bisected and submitted entirely as (B). (Dr. Thomas)/avelina End of Report [facility] 06/28/2002 06/29/2002 15: 30 EDT us Suzanne De Guzman MD PATHOLOGY ORDERABLES Final Resu lt [facility] [address] [place] [address] documented in this encounter Visit Diagnoses Not on filedocumented in this encounter Care Teams Measurement Psychologist Relationship Specialty Start Date End Date Unknown, Provider, PCP - General 05/03/09 documented as of this encounter
--- OUTSIDE RECORDS SUMMARY | 2024-09-30 11:32 | XMS_ITS | Encounter Summary ---
Author Organization [facility] [place] [address] Care Team Providers Care Leaflet Or Newspaper Deliverer Name Role Phone Suzanne De Guzman MD Primary Care Provider [phone] Encounter Details Date Type Department Care Team (Late st Contact Info) Description 02/13/2015 Orders Only Hematology/Oncology at [address] [phone] Maria M Mitchell RN Breast cancer, female, unspecified laterality Social History Tobacco Use Types Packs/Day Years [...] as of this encounter Visit Diagnoses Diagnosis Breast cancer, female, unspecified laterality documented in this encounter Care Teams Leaflet Or Newspaper Deliverer Relationship Specialty Start Date End Date Suzanne De Guzman MD [address] [place] [address] PCP - General 08/16/13 documented as of this encounter
--- OUTSIDE RECORDS SUMMARY | 2024-09-30 11:32 | XMS_ITS | Encounter Summary ---
Author Organization [facility] Address [address] [place] [address] Care Team Providers Care Retort Or Condenser Press Operator Name Role Phone Unknown, Provider Primary Care Provider Inessa ilable Encounter Details Date Type Department Care Team (Late st Contact Info) Description 11/25/2018 Results Only [facility] [phone] Suzanne De Guzman MD [address] [place] [address] Social History Tobacco Use Types Packs/Day Years [...] Diagnosis Comments PAP TEST- RESULT ONLY Routine 11/25/2018 0:00 EST documented in this encounter Results * PAP TEST- RESULT ONLY (11/25/2018 0:00 EST) Pathology Report: CYTOPATHOLOGY REPORT Reports generated via electronic interface contain original data; however they are lacking the format of the original report. Caution should be taken when reading/interpreti ng unformatted reports. Name: ? LIGIA PATEL ? Accession #: ? [id number] ? : ? 1955 (Age: 63) ??F ?Collect Date: ? 11/25/2018 ? Location: ? [facility] ? Receive Date: ? 11/29/2018 ? Provider: SUZANNE DE GUZMAN MD Copy to: ? Final Report SPECIMEN ADEQUACY ? Satisfactory for Evaluation - assessment of transformation zone component not applicable ( e.g. atrophy, vaginal sample, hysterectomy) GENERAL CATEGORIZATION ? Negative for Intraepithelial Lesion or Malignancy ?? Last Menstrual Period: 2000 Hormonal/Contracep tive status: None Treatment History: Yes: Oophorectomy 2000 Other: Additional clinical information: Z01.419 Specimen/Source: ??Pap Test, Cervix/Endocervix, ThinPrep Imaging System with manual evaluation Document reviewed and electronically signed by: ? Ayana Gauthier, AMY(ASCP) ? Report ??Date: 11/30/2018 13:59 HPV with Pap Test ? Date Ordered: ? 11/30/2018 ? Status: ?? Signed Out ?Date Complete: ? 12/01/2018 ? By: ??System Interface ? Date Reported: ? 12/01/2018 ? Interpretation RESULT: Negative for HPV. No E6 or E7 mRNA is detected from HPV types 16,18,31,33,35, 39,45,51,52,56,58, 59,66, and 68 by embedded systems software developer mediated amplification. Comments Document reviewed and electronically signed by: ? System Interface ? Report date: 12/01/2018 By the signature above, the attending physician certifies that he/she has personally conducted a gross and/or microscopic examination of the described specimens and rendered or confirmed the above diagnosis. End of Report [facility] 11/25/2018 11/29/2018 us Suzanne De Guzman MD PATHOLOGY ORDERABLES Final Resu lt [facility] [address] [place] [address] documented in this encounter Visit Diagnoses Not on filedocumented in this encounter Care Teams Retort Or Condenser Press Operator Relationship Specialty Start Date End Date Unknown, Provider, PCP - General 05/03/09 documented as of this encounter
--- OUTSIDE RECORDS SUMMARY | 2024-09-30 11:32 | XMS_ITS | Encounter Summary ---
Author Organization [facility] [place] [address] Care Team Providers Care Transportation Analyst Name Role Phone Suzanne De Guzman MD Primary Care Provider Encounter Details Date Type Department Care Team (Late st Contact Info) Description 04/13/2015 3:15 PM EDT Follow-Up Hematology/Oncology at [address] [address] Iraida Zhou, LOC Adenocarcinoma of breast, left; Malignant neoplasm of female breast, unspecified laterality Discharge Disposition: Home Social History Tobacco Use [...] Sign Reading Time Taken Comments Blood Pressure 135/64 04/13/2015 3:15 PM EDT Pulse 81 04/13/2015 3:15 PM EDT Temperature 36.8 ??C (98.2 ??F) 04/13/2015 3:15 PM ED T Respiratory Rate 16 04/13/2015 3:15 PM EDT Oxygen Saturation 98% 04/13/2015 3:15 PM EDT Inhaled Oxygen Concentration - - Weight 90.5 kg (199 lb 8 oz) 04/13/2015 3:15 PM EDT Height 175.3 cm (5' 9.02) 04/13/2015 3:15 PM ED T Body Mass Index 29.45 04/13/2015 3:15 PM EDT documented in this encounter Progress Notes * Iraida Zhou, TEACHER OF THE DEAF/HARD OF HEARING - 04/13/2015 3:17 PM EDT Images from the original note were not included. Subjective: Patient ID: Ligia Lara is a 59 y.o. female. HPI Comments: Patient returns for f/u now more than 16 years from diagnosis and treatment for a [...] breast resection andoophorectomy. She has been on chcf adjuvant therapy first with tamoxifen and supsequently Femara. She has been on Femara for 10 years and is tolerating it well. Her last DEXA 03/29/13 showed normal BMD although it had decreased a bit from the study 2 years earlier. She takes calcium and VitaminD and is an avid walker. She has [...] with aromatase inhibitors following five years oftamoxifen Continues on letrozole at patient's request Strong family history of cancer. Sister with [...] for pallor and rash. Neurological: Negative. Psychiatric/Behavioral: Negative. Objective: Physical Exam Constitutional: She is oriented [...] Her behavior is normal. Vitals reviewed. BP 135/64 Pulse 81 Temp(Src) 36.8 ??C (98.2 ??F) (Oral) Resp 16 Ht 175.3 cm (5' 9.02) Wt90.493 kg (199 lb 8 oz) BMI 29.45 kg/m2 SpO2 98% LAB: 03/19/15 CBC: WBC 7.71 hemoglobin 11.8 platelets 234 CMP: Sodium 138 potassium 4.3 BUN 18 creatinine 0.7 glucose 86 calcium 8.8 total bili 0.36 AST 27 ALT 28 alkaline phosphatase 69 total protein 6.8 albumin 3.6 date CA 27.29 03/19/15 25.4 09/05/13 29.9 [...] long discussion today regarding her follow- up. We have decided that her tumor marker tests are no longer needed. Providing there are no interval problems she will return for f/u in 6 months with a CBC and CMP. At that time we will think about moving forward with back in the visits down to an annual visit. She admits this is difficult for her since she feels safer by getting checked every 6 months. At the last visit Dr. Post had discussed duration of AI therapy and the lack of new data and she would like to continue letrozole. I will have her bone mineral density checked at her next visit. She will be in touch in the [...] ??? 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 Psoriasis 696.1 ??? History of basal cell carcinoma V10.83 PCP: Bobbi Blum MD Other Providers: Michael Nolasco MD documented in this encounter Plan of Treatment Not on file documented as of this encounter Visit Diagnoses Diagnosis Adenocarcinoma of breast, left Malignant neoplasm of female breast, unspecified laterality documented in this encounter Care Teams Transportation Analyst Relationship Specialty Start Date End Date Suzanne De Guzman MD [address] [place] [address] PCP - General 08/16/13 documented as of this encounter
--- OUTSIDE RECORDS SUMMARY | 2024-09-30 11:32 | XMS_ITS | Encounter Summary ---
Author Organization [facility] Address [address] [place] [address] Care Team Providers Care Remote Mortgage Underwriter Name Role Phone Unknown, Provider Primary Care Provider Unava ilable Encounter Details Date Type Department Care Team (Late st Contact Info) Description 01/19/2001 Results Only [facility] [address] [place] [address] Nikolas Chávez MD [address] [facility] [address] [place] [address] Social History Tobacco Use Types [...] Date/Time Associated Diagnosis Comments SURGICAL PATHOLOGY Routine 01/19/2001 0:00 EDT documented in this encounter Results * SURGICAL PATHOLOGY (01/19/2001 0:00 EDT) Pathology Report: SURGICAL PATHOLOGY REPORT Reports generated via electronic interface contain original data; however they are lacking the format of the original report. Caution should be taken when reading/interpreti ng unformatted reports. Name: ? LIGIA PATEL ? Accession #: ? [id number] ? : ? 1955 (Age: 45) ??F ? Collect Date: ? 01/19/2001 ? Location: ? [facility] ? Receive Date: ? 01/19/2001 ? Provider: NIKOLAS CHÁVEZ MD Copy to: JAMES CHRISTIAN MD ? Final Pathologic Diagnosis: ? Endometrium, biopsy: 1. ?Small portions of benign endometrial tissue with tubal metaplasia. 2. ?No evidence of hyperplasia or malignancy. Document reviewed and electronically signed by: Julio Cesar Frausto MD Report ??Date: 01/20/2001 16:08 By the signature above, the attending physician certifies that he/she has personally conducted a gross and/or microscopic examination of the described specimens and rendered or confirmed the above diagnosis. Specimen(s) Received: ? Endometrial biopsy Clinical History: ? Menstrual irreg on Tamoxifen Gross Description: ? Received in formalin labelled Jane and endometrium are 1.0 x 1.0 x 0.3 cm of red-brown mucinous material. ??The specimen is entirely submitted in one cassette. ??(Kwan Mckenzie)/[facility] End of Report [facility] 01/19/2001 01/19/2001 14: 55 EDT us Nikolas Chávez MD PATHOLOGY ORDERABLES Final Resu lt [facility] [address] [place] [address] documented in this encounter Visit Diagnoses Not on filedocumented in this encounter Care Teams Remote Mortgage Underwriter Relationship Specialty Start Date End Date Unknown, Provider, PCP - General 05/03/09 documented as of this encounter
--- OUTSIDE RECORDS SUMMARY | 2024-09-30 11:32 | XMS_ITS | Encounter Summary ---
Author Organization [facility] [place] [address] Care Team Providers Care Weatherization And Housing Inspector Name Role Phone Suzanne De Guzman MD Primary Care Provider [phone] Reason for Visit * Reason Onset Date Comments Questions 04/16/2016 Encounter Details Date Type Department Care Team (Late st Contact Info) Description 04/16/2016 Telephone Hematology Oncology at [address] [address] Dagmar Rizvi I, RN Questions Social History Tobacco Use Types Packs/Day Years [...] encounter Miscellaneous Notes * Telephone Encounter - Dagmar Rizvi I RN - 04/16/2016 10:28 AM EDT Received Edh message from clinical company secretary ?? Patient called about a prescription. ??Please call her back. ? Spoke with patient who is expressing concern over stopping her Femara because she has a family history of cancer Patient states I tolerate it well. No side effects. I just don't know if I should continue it or stop it. Mayank Zhou notified via Edh message. Per Iraida SENA It is really her decision. ??Dr. Post had not planned to continue it beyond 10yrs, which she has now passed. ??If she feels more comfortable we can schedule a 2nd opinion at [facility] with the breast team to talk about it. . Placed call to patient . Left above message with request for call back on identified VM. documented in this encounter Plan of Treatment Not on file documented as of this encounter Visit Diagnoses Not on filedocumented in this encounter Care Teams Weatherization And Housing Inspector Relationship Specialty Start Date End Date Suzanne De Guzman MD [address] [place] [address] PCP - General 08/16/13 documented as of this encounter
--- OUTSIDE RECORDS SUMMARY | 2024-09-30 11:32 | XMS_ITS | Encounter Summary ---
Author Organization [facility] [place] [address] Care Team Providers Care Cable Respooler Name Role Phone Suzanne De Guzman MD Primary Care Provider [phone] Reason for Visit * Reason Comments Follow-up adenocarcinoma of br east Encounter Details Date Type Department Care Team (Late st Contact Info) Description 03/17/2014 2:30 PM EDT Follow-Up [address] [place] [address] Jesu Post MD Malignant neoplasm of breast (female), unspecified site (Primary Dx) Social History Tobacco Use Types [...] Sign Reading Time Taken Comments Blood Pressure 132/79 03/17/2014 2:33 PM EDT Pulse 85 03/17/2014 2:33 PM EDT Temperature 36.6 ??C (97.9 ??F) 03/17/2014 2:33 PM ED T Respiratory Rate - - Oxygen Saturation 97% 03/17/2014 2:33 PM EDT Inhaled Oxygen Concentration - - Weight 90.7 kg (200 lb) 03/17/2014 2:33 PM EDT Height 175.3 cm (5' 9) 03/17/2014 2:33 PM EDT Body Mass Index 29.53 03/17/2014 2:33 PM EDT documented in this encounter Progress Notes * Jesu Post MD - 03/17/2014 2:55 PM EDT Images from the original note [...] resection and oophorectomy. She has been on skilled nursing adjuvant therapy first with tamoxifenand supsequently Femara. She has been on Femara for 9+ years and is tolerating it well. Her last DEXA 03/29/13 showed normal BMD although it had decreased a bit from the study 2 years earlier. She takes calcium and Vitamin D and is an avid walker. She has had no symptoms or problems suggestive of disease recurrence. Over the last year she has had intermittent problems with psoriasis. Stage 1 adenocarcinoma - left breast a. 1996 left breast mass found, biopsy showed a borderline Phyllodes tumor. She underwent wide local excision. b. 1998 found to have multicentric cancer in L breast, stage pT1b pN0. She underwent excisional biopsy. Specimen number [...] inhibitors following five years oftamoxifen Last f/u 03/17/14 continues on letrozole Strong family history of [...] for myalgias, back pain and arthralgias. Skin: Positive for rash (psoriasis). Negative for pallor. Neurological: Negative. Hematological: Negative. Psychiatric/Behavioral: Negative. Objective: [...] and affect. Her behavior is normal. BP 132/79 Pulse 85 Temp 36.6 ??C (97.9 ??F) (Tympanic) Ht 175.3 cm (5' 9) Wt 90.719 kg (200 lb) BMI 29.52 kg/m2 SpO2 97% LAB: 03/08/14 CBC WBC 5.7 ANC 2.6 H/H 11.2/33.3 Plat 211 CMP BS 104 Ca 8.9 BUN 18 Creat 0.8 Na 137 K 4.4 Cl 102 CO2 27 AST 22 ALT 33 AP 82 date CA 27.29 03/08/14 26.6 09/05/13 29.9 03/09/13 24.2 09/23/12 25.5 02/06/12 [...] recurrent disease of other significant new problems. Today is apparently a good day with respect to her psoriasis. Providing there are no interval problems she will return for f/u in 6 months with the usual lab studies. We discussed the present feelings about the duration of AI therapy and the lack of new data and she would like to continue l etrozole. We agreed there is little sense to continuing it beyond 10 years. Her bone mineral density is fine. She will be in touch in the interim if there are problems or questions. Current Outpatient Prescriptions on File Prior to Visit Medication Sig Dispense Refill ??? letrozole (FEMARA) 2.5 mg tablet Take [...] by mouth daily. ??? multivitamin (THERAGRAN) tablet Patient Active Problem List Diagnosis Code ??? Adenocarcinoma of breast 174.9 ??? Hypertension 401.9 ??? 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 Psoriasis 696.1 ??? History of basal cell carcinoma V10.83 PCP: Bobbi Blum MD Other Providers: Michael Nolasco MD documented in this encounter Plan of Treatment Not on file documented as of this encounter Procedures Procedure Name Priority Date/Time Associated Diagnosis Comments LAB SCAN 09/12/2014 12:00 AM EST LAB SCAN 09/12/2014 12:00 AM EST documented in this encounter Results * SCAN DOC: LAB (09/12/2014 12:00 AM EST) Scanning Provider MEDIA MGR SCAN EXT O RDR/RSLT * SCAN DOC: LAB (09/12/2014 12:00 AM EST) Scanning Provider MEDIA MGR SCAN EXT O RDR/RSLT documented in this encounter Visit Diagnoses Diagnosis Malignant neoplasm of breast (female), unspecified site- Primary documented in this encounter Care Teams Cable Respooler Relationship Specialty Start Date End Date Suzanne De Guzman MD [address] [place] [address] PCP - General 08/16/13 documented as of this encounter
--- OUTSIDE RECORDS SUMMARY | 2024-09-30 11:32 | XMS_ITS | Encounter Summary ---
Author Organization [facility] [place] [address] Care Team Providers Care Shank Archer Name Role Phone Suzanne De Guzman MD Primary Care Provider [phone] Reason for Visit * Reason Onset Date Comments Medication Refill 10/12/2013 Encounter Details Date Type Department Care Team (Late st Contact Info) Description 10/12/2013 Refill Hematology Oncology at [address] [phone] Mariajose Castellano RN Adenocarcinoma of breast (Primary Dx) Social History Tobacco Use Types [...] encounter Miscellaneous Notes * Telephone Encounter - Mariajose Castellano RN - 10/12/2013 5:57 PM EST Telephone call from Ligia stating that she needs a refill on her femara sent to [facility] pharmacy. She usually gets 90 day supply per refill. She says that she is not out yet but just forgot to ask at her last appointment. documented in this encounter Plan of Treatment Not on file documented as of this encounter Visit Diagnoses Diagnosis Adenocarcinoma of breast- Primary Malignant neoplasm of breast (female), unspecified site documented in this encounter Care Teams Shank Archer Relationship Specialty Start Date End Date Suzanne De Guzman MD [address] [place] [address] PCP - General 08/16/13 documented as of this encounter
--- OUTSIDE RECORDS SUMMARY | 2024-09-30 11:32 | XMS_ITS | Encounter Summary ---
Author Organization [facility] Address [address] [place] [address] Care Team Providers Care Service Developer Name Role Phone Unknown, Provider Primary Care Provider Unava ilable Encounter Details Date Type Department Care Team (Late st Contact Info) Description 10/10/2004 Results Only [facility] conversion [address] [place] [address] Nikolas Chávez MD [address] [facility] [address] [place] [address] Social History Tobacco Use Types [...] Date/Time Associated Diagnosis Comments SURGICAL PATHOLOGY Routine 10/10/2004 0:00 EST documented in this encounter Results * SURGICAL PATHOLOGY (10/10/2004 0:00 EST) Pathology Report: SURGICAL PATHOLOGY REPORT Reports generated via electronic interface contain original data; however they are lacking the format of the original report. Caution should be taken when reading/interpreti ng unformatted reports. Name: ? LIGIA PATEL ? Accession #: ? [id number] ? : ? 1955 (Age: 49) ??F ? Collect Date: ? 10/10/2004 ? Location: ? [facility] ? Receive Date: ? 10/11/2004 ? Provider: NIKOLAS CHÁVEZ MD Copy to: TAHMINA CLINE MD ? Final Pathologic Diagnosis: A. ?Endometrium, curettage: 1. ?Focal simple hyperplasia without atypia. 2. ?Background of inactive endometrium. B. ?Ovary, right, oophorectomy: 1. ?No pathologic features. C. ?Ovary, left, oophorectomy: ? 1. ?? No pathologic features. Document reviewed and electronically signed by: DAX HERZOG MD Report ??Date: 10/16/2004 15:46 By the signature above, the attending physician certifies that he/she has personally conducted a gross and/or microscopic examination of the described specimens and rendered or confirmed the above diagnosis. Specimen(s) Received: ? A. Endometrial curettings (#1) B. Right ovary (#2) C. Left ovary (#3) Clinical History: ? Postmenopausal bleeding; S/P chemo for breast cancer Gross Description: ? Received in formalin labelled Jane and 1. Endometrial curettings is a scant amount of sarmiento-pink soft tissue and hemorrhage. ??The specimen measures in aggregate 2.0 x 1.0 x 0.2 cm. ??The specimen also consists of mucinous material that measures 0.5 x 0.5 x 0.5 cm. ??The specimen is submitted in its entirety as (A). Received in formalin labelled Jane and 2. R ovary is the product of an oophorectomy. ??The specimen weighs 5.07 grams and measures 3.0 x 2.5 x 1.0 cm. The outer surface is sarmiento-white and bosselated. ??Serial sectioning of the ovary reveals sarmiento-brown tissue that is focally hyperemic with an outer rim of firm white tissue. There is one cyst that measures 0.1 cm in diameter. ??The entire specimen is submitted as (B1) to (B5). Received in formalin labelled Jane and 3. L ovary is the product of an oophorectomy. ??The specimen weighs 3.80 grams. ??The specimen measures 3.0 x 2.0 x 1.0 cm. ??The outer surface is white-sarmiento and bosselated. ??Serial sectioning of the specimen reveals sarmiento-brown tissue that is focally hyperemic. ??There is a cyst with clear fluid that measures 0.4 x 0.4 x 0.3 cm. ??The entire specimen is submitted as (C1) to (C5). ??(Dr. Tamayo)/[facility] End of Report [facility] 10/10/2004 10/11/2004 15: 12 EST us Nikolas Chávez MD PATHOLOGY ORDERABLES Final Resu lt [facility] [address] [place] [address] documented in this encounter Visit Diagnoses Not on filedocumented in this encounter Care Teams Service Developer Relationship Specialty Start Date End Date Unknown, Provider, PCP - General 05/03/09 documented as of this encounter
--- OUTSIDE RECORDS SUMMARY | 2024-09-30 11:32 | XMS_ITS | Encounter Summary ---
[facility] Organization [facility] [place] [address] Care Team Providers Care Automobile Body Repairer Helper Name Role Phone Suzanne eD Guzman MD Primary Care Provider [phone] Reason for Visit * Reason Comments Genetic Evaluation * Consultation (Routine) - Closed Specialty Diagnoses / Procedures Referred By Contduc t Referred To Contact Hematology and Oncology Diagnoses Personal history of malignant neoplasm of breast Suzanne De Guzman MD [address] [place] [address] [facility] [address] [place] [address] Referral ID Status Reason Start Date Expiration Date V isits Requested Visits Authorized [id number] Closed Consult, [facility] PCP Updated and/or Approved 07/16/2021 07/16/2022 6 6 Encounter Details Date Type Department Care Team (Late st Contact Info) Description 04/10/2022 10:00 AM EDT Office Visit [place] [id number] Gino Perez V [facility] Hematology/[place] [address] History of breast cancer; Family history of malignant neoplasm of breast; Family history of malignant neoplasm of prostate; Family history of colon cancer; Family history of melanoma Social History Tobacco Use Types Packs/Day Years [...] as of this encounter Progress Notes * Gino Perez LGC - 04/10/2022 10:00 AM EDT Ligia Lara was seen by SHEA Franz in consultation at the request of Suzanne Sanford advise regarding possible heritable predisposition to cancer. I spent 40 minutes of this face to face encounter with the patient gathering medical and family history and discussing the likelihood of a genetic predisposition to cancer and the option of genetic testing. Reason for referral/Chief complaint Personal history of breast cancer and family history of breast, prostate, colon, and skin cancer. Medical history Cancer hx and treatment: Ligia is a 66yo female who presents to genetic counseling to discuss updated genetic testing due toher personal and family history of breast and other cancers. Ligia was diagnosed with breast cancer at age 43 and was treated with b/l mastectomy, chemotherapy,tamoxifen x5yrs, letrozole for ~9yrs. Ligia underwent BSO in mid-40s, uterus intact. She previously had [facility] genetic testing that was negative. Current cancer screening: Colonoscopy every 5 years, hx of a polyp or two but most recent was negative. Family History of Cancer Problem Relation Age of Onset ??? Breast Cancer Mother 82 ??? Prostate Cancer Father 65 metastatic ??? Breast Cancer Sister 28 ??? Lung Cancer Sister 42 smoker ??? Bladder Cancer Maternal Grandfather ??? Melanoma Paternal Grandmother 72 ??? Lung Cancer Paternal Grandfather 41 smoker ??? Lung Cancer Maternal Aunt 72 smoker ??? Breast Cancer Maternal Aunt 55 ??? Breast Cancer Maternal Aunt 65 DCIS; 2nd primary vs recurrence at 84 ??? Colorectal Cancer Maternal Aunt 77 ??? Breast Cancer Paternal Aunt 74 ??? Colorectal Cancer Paternal Aunt 65 ??? Lymphoma Nephew 18 Non-hodgkins ??? Melanoma Niece ??? Breast Cancer Maternal Cousin 45 Has either recurrence or 2nd breast primary Maternal ethnic background is Romanian, Micronesian. Paternal ethnic background is Romanian. There is no known Ashkenazi Yarsanism ancestry. Genetic risk assessment Based on personal and/or family history, the likelihood that Ligia would be found to have a mutation in a cancer predisposition gene is high enough to offer the option of genetic testing. Specifically, Ligia meets NCCN criteria for hereditary breast cancer testing due to her personal history of breast cancer at age 43 and family history of breast cancer in her sister at age 28, mother, two maternal aunts, and maternal 1st cousin at age 45. While Ligia had prior BRCA1/2 testing that was negative, repeat testing is recommended as improvements in genetic testing can occasionally detect mutationsthat were previously not detectible. Ligia has yet to be tested for other genes of interest, such as PALB2, CHEK2, or MANJULA. We also discussed testing for mutations in the TP53 gene given her sister's breast cancer under age 30, although her remaining personal and family history is not highly suggestive of a TP53 germline mutation. Panel genetic testing for an inherited predisposition to cancer, including breast cancer, was discussed. The risks, benefits and limitations of panel genetic testing were reviewed, specifically a high rate of identifying a variant of uncertain significance, lack of knowledge of cancer risk for newly identified, moderate risk genes included in the panel and lack of effective screening, as well as cancer risk for other cancers not observed in the family. We reviewed dominant inheritance, meaning that if a mutation is detected there is a 50% chance for Ligia's children and siblings to have also inherited the same gene alteration. We discussed the Genetic Information Nondiscrimination Act (LING), a federal law prohibiting discrimination by health insurance companies and most employers based on genetic information. LING does not apply to life insurance, disability insurance or long-term care insurance. More information about LING may be found at [email or web address]. Ligia opted for testing with [facility]' CancerNext-Expanded +RNAinsight Panel, a next generation sequencing panel that simultaneously analyzes 77 genes, including BRCA1, BRCA2, PALB2, CHEK2, MANJULA, and TP53, that contribute to increased risk for cancer. Ligia was consented. Her blood sample was drawn and sent to [facility]. We reviewed [employer]'s billing policy. Ligia will be notified by text and/or email once Isaias completes their benefits investigation if her estimated out of pocket cost is over $100. At that time, if Ligia is concerned about the estimated test cost she will have the option to contact [employer] directly and either apply for [facility]'s patient assistance program to try and reduce cost of testing based on income information, cancel testing, or switch to a self-pay option of $250. If Ligia does not respond to Dominiqueyolanda, testing will be billed to her insurance as the default option. Testing will take up to 3 weeks. Ligia will be contacted via telephone once her test results becomeavailable. If positive, we will offer a follow-up appointment. At that time, we will discuss with Ligia the implications that this test result may have for her, as well as her family members. We willalso provide Ligia with screening guidelines for cancer prevention and early detection, as well as answer any questions she may have. documented in this encounter Plan of Treatment Not on file documented as of this encounter Visit Diagnoses Diagnosis History of breast cancer Personal history of malignant neoplasm of breast Family history of malignant neoplasm of breast Family history of malignant neoplasm of prostate Family history of colon cancer Family history of malignant neoplasm of gastrointestinal tract Family history of melanoma Family history of other specified malignant neoplasm documented in this encounter Care Teams Automobile Body Repairer Helper Relationship Specialty Start Date End Date Suzanne De Guzman MD [address] [place] [address] PCP - General 08/16/13 documented as of this encounter
--- OUTSIDE RECORDS SUMMARY | 2024-09-30 11:32 | XMS_ITS | Encounter Summary ---
Author Organization [facility] [place] [address] Care Team Providers Care Gutter Mouth Cutter Name Role Phone Suzanne De Guzman MD Primary Care Provider [phone] Encounter Details Date Type Department Care Team (Late st Contact Info) Description 04/16/2015 Telephone Hematology/Oncology at [address] [phone] Mariajose Castellano RN Social History Tobacco Use Types Packs/Day Years [...] Telephone Encounter - Mariajose Castellano RN - 04/16/2015 10:16 AM EDT Telephone call to [facility] pharmacy to call in prescription written 04/13/2015 by Iraida Zhou APRN forletrozole (FEMARA) 2.5 mg Take 1 tablet daily. Qty:90 (ninety tablets) Refills: 3 refills documented in this encounter Plan of Treatment Not on file documented as of this encounter Visit Diagnoses Not on filedocumented in this encounter Care Teams Gutter Mouth Cutter Relationship Specialty Start Date End Date Suzanne De Guzman MD [address] [place] [address] PCP - General 08/16/13 documented as of this encounter
--- OUTSIDE RECORDS SUMMARY | 2024-09-30 11:32 | XMS_ITS | Encounter Summary ---
[place] [address] Care Team Providers Care Service Station Console Operator Name Role Phone Suzanne De Guzman MD Primary Care Provider [phone] Encounter Details Date Type Department Care Team (Late st Contact Info) Description 09/22/2014 2:30 PM EST Follow-Up [address] [phone] Jesu Post MD Social History Tobacco Use Types Packs/Day Years [...] filedocumented in this encounter Care Teams Service Station Console Operator Relationship Specialty Start Date End Date Suzanne De Guzman MD [address] [place] [address] PCP - General 08/16/13 documented as of this encounter
--- OUTSIDE RECORDS SUMMARY | 2024-09-30 11:32 | XMS_ITS | Encounter Summary ---
Author Organization [facility] Address [address] [place] [address] Care Team Providers Care Round Up Ring Hand Name Role Phone Unknown, Provider Primary Care Provider Inessa ilable Encounter Details Date Type Department Care Team (Late st Contact Info) Description 06/29/2020 Lab Requisition [facility] Pathology & Laboratory Medicine - [facility] [address], [place] [id number] Outr Resulting Lab, Provider Social History Tobacco [...] Procedure Name Priority Date/Time Associated Diagnosis Comments DO NOT ORDER STANDALONE - BROAD COVID TEST Today 06/29/2020 14:28 EDT COVID-19 TESTING Routine 06/29/2020 14:2 8 EDT documented in this encounter Results * DO NOT ORDER STANDALONE - BROAD COVID TEST (06/29/2020 14:28 EDT) COVID-19 rt-PCR Result NEGATIVE Negative 07/01/2020 0:00 EDT [facility] Comment: 2019-novel Coronavirus (2019-nCoV) not detected by the qRT-PCR assay. Consider testing for other respiratory viruses or re-collecting for 2019-nCoV testing. Note: Optimum timing for peak viral levels during infections caused by 2019-nCoV have not been determined. Collection of multiple specimens from the same patient may be necessary to detect the virus. Limitations Positive results are indicative of active infection with SARS-CoV-2 but do not rule out bacterial infection or co-infection with other viruses. The agent detected may not be the definite cause of disease. In addition, detection of viral RNA may not indicate the presence of infectious virus or that SARS-CoV-2 is the causative agent for clinical symptoms. Negative results do not preclude SARS-CoV-2 infection and should not be used as the sole basis for patient management decisions. Negative results must be combined with clinical observations, patient history, and epidemiological information. False negative results may also occur if amplification inhibitors are present in the specimen or if inadequate numbers of organisms are present in the specimen. Optimum specimen types and timing for peak viral levels during infections caused by SARS-CoV-2 have not been fully determined. Collection of multiple specimens (types and time points) from the same patient may be necessary to detect the virus. The test was validated for use with upper respiratory specimens obtained via nasopharyngeal or oropharyngeal swabs in VTM, UTM, M4, M5, M6, saline, and MTM media. The performance of this test has not been established for other specimens. Specimens collected using other FDA recommended Specimen Collection Materials listed in the FDA COVID-19 Diagnostic Technologies communication (December 29, 2019) are processed with the caveat that they were not all validated for use with this test and the result must be interpreted in this context. Furthermore, a false negative results may occur if a specimen is improperly collected, transported or handled. If the virus mutates in the RT-PCR target region, SARS-CoV-2 may not be detected or may be detected less predictably. Inhibitors or other types of interference may produce a false negative result. An interference study evaluating the effect of common cold medications was not performed. This test is not FDA-cleared but its performance characteristics were established by our CLIA-certified, CAP-accredited, high complexity laboratory in accordance with CLIA regulations, College of [employer] Pathologists (CAP) guidelines (Dec 22, 2019), and FDA guidance (Dec 03, 2019). This test is only for use under the Food and Drug Administration's Emergency Use Authorization. Swab ENTIRE NASOPHARYNX / Unknown 06/29/2020 14:28 EDT 06/29/2020 20:35 EDT us Provider Outr Resulting Lab MICROBIOLOGY - GENER AL ORDERABLES Final Result [facility] [place], [place] * COVID-19 TESTING (06/29/2020 14:28 EDT) COVID-19 rt-PCR Result NEGATIVE Negative 07/01/2020 2:46 EDT [facility] Comment: 2019-novel Coronavirus (2019-nCoV) not detected by the qRT-PCR assay. Consider testing for other respiratory viruses or re-collecting for 2019-nCoV testing. Note: Optimum timing for peak viral levels during infections caused by 2019-nCoV have not been determined. Collection of multiple specimens from the same patient may be necessary to detect the virus. Limitations Positive results are indicative of active infection with SARS-CoV-2 but do not rule out bacterial infection or co-infection with other viruses. The agent detected may not be the definite cause of disease. In addition, detection of viral RNA may not indicate the presence of infectious virus or that SARS-CoV-2 is the causative agent for clinical symptoms. Negative results do not preclude SARS-CoV-2 infection and should not be used as the sole basis for patient management decisions. Negative results must be combined with clinical observations, patient history, and epidemiological information. False negative results may also occur if amplification inhibitors are present in the specimen or if inadequate numbers of organisms are present in the specimen. Optimum specimen types and timing for peak viral levels during infections caused by SARS-CoV-2 have not been fully determined. Collection of multiple specimens (types and time points) from the same patient may be necessary to detect the virus. The test was validated for use with upper respiratory specimens obtained via nasopharyngeal or oropharyngeal swabs in VTM, UTM, M4, M5, M6, saline, and MTM media. The performance of this test has not been established for other specimens. Specimens collected using other FDA recommended Specimen Collection Materials listed in the FDA COVID-19 [employer] Technologies communication (December 29, 2019) are processed with the caveat that they were not all validated for use with this test and the result must be interpreted in this context. Furthermore, a false negative results may occur if a specimen is improperly collected, transported or handled. If the virus mutates in the RT-PCR target region, SARS-CoV-2 may not be detected or may be detected less predictably. Inhibitors or other types of interference may produce a false negative result. An interference study evaluating the effect of common cold medications was not performed. This test is not FDA-cleared but its performance characteristics were established by our CLIA-certified, CAP-accredited, high complexity laboratory in accordance with CLIA regulations, College of [place] Pathologists (CAP) guidelines (Dec 22, 2019), and FDA guidance (Dec 03, 2019). This test is only for use under the Food and Drug Administration's Emergency Use Authorization. Performing Lab [facility] 07/01/2020 2:46 EDT [facility] Swab 06/29/2020 14:2 8 EDT 06/29/2020 20:35 EDT us Provider Outr Resulting Lab MICROBIOLOGY - GENER AL ORDERABLES Final Result [facility] [address] [place], [place] [id number] [place] [address] LABORATORY [place], [place] documented in this encounter Visit Diagnoses Not on filedocumented in this encounter Care Teams Round Up Ring Hand Relationship Specialty Start Date End Date Unknown, Provider, PCP - General 05/03/09 documented as of this encounter
--- OUTSIDE RECORDS SUMMARY | 2024-09-30 11:32 | XMS_ITS | Encounter Summary ---
Author Organization [facility] [place] [address] Care Team Providers Care Preschool Disability Teacher Name Role Phone Suzanne De Guzman MD Primary Care Provider [phone] Reason for Visit * Reason Onset Date Comments Medical Care Coordination 04/16/2016 Encounter Details Date Type Department Care Team (Late st Contact Info) Description 04/16/2016 Telephone Hematology Oncology at [address] [phone] Dagmar Rizvi I RN Medical Care Coordination Social History Tobacco Use Types Packs/Day Years [...] Notes * Telephone Encounter - Dagmar Rizvi RN - 04/16/2016 11:06 AM EDT Received Edh message from clinical molten iron pourer ?? Patient called about a prescription. ??Please call her back. ? Spoke with patient who is expressing concern about stopping Femara because of her family history ofcancer. Has 14 day supply left. Notified Mayank Zhou that patient is concerned about stopping. documented in this encounter Plan of Treatment Not on file documented as of this encounter Visit Diagnoses Not on filedocumented in this encounter Care Teams Preschool Disability Teacher Relationship Specialty Start Date End Date Suzanne De Guzman MD [address] [place] [address] PCP - General 08/16/13 documented as of this encounter
--- OUTSIDE RECORDS SUMMARY | 2024-09-30 11:32 | XMS_ITS | Encounter Summary ---
Author Organization [facility] Address [address] [place] [address] Care Team Providers Care Giver Name Role Phone Unknown, Provider Primary Care Provider Unava ilable Encounter Details Date Type Department Care Team (Late st Contact Info) Description 01/16/2006 Results Only [facility] [place] [facility] [address] [place] [address] Nikolas Chávez MD [address] [facility] [address] [place] [address] Social History Tobacco Use Types [...] Priority Date/Time Associated Diagnosis Comments CYTOPATHOLOGY Routine 01/16/2006 0:00 EDT documented in this encounter Results * CYTOPATHOLOGY (01/16/2006 0:00 EDT) Pathology Report: CYTOPATHOLOGY REPORT Reports generated via electronic interface contain original data; however they are lacking the format of the original report. Caution should be taken when reading/interpreti ng unformatted reports. Name: ? LIGIA PATEL ? Accession #: ? [id number] : ? 1955 (Age: 50) ??F ?Collect Date: ? 01/16/2006 Location: ? [facility] ? Receive Date: ? 01/19/2006 Provider: ?NIKOLAS CHÁVEZ MD Copy to: ? Specimen/Source: ?ThinPrep Pap Test, Cervix/Endocervix, processed on [employer] ThinPrep Imaging System, with manual evaluation Last Menstrual Period: ? Other: ? Additional clinical information: Dyspareunia. Atrophic vagina. ? SPECIMEN ADEQUACY ? Satisfactory for Evaluation - assessment of transformation zone component not applicable ( e.g. atrophy, vaginal sample, hysterectomy) GENERAL CATEGORIZATION ? Negative for Intraepithelial Lesion or Malignancy ? Document reviewed and electronically signed by: ? AMY Larsen(ASCP) ? Report Date: ??01/20/2006 14:32 End of Report SHIV ORTIZ 01/16/2006 01/19/2006 us Nikolas Chávez MD PATHOLOGY ORDERABLES Final Resu lt Performing Organization Address City/State/[facility] Co de Phone Number SHIV ORTIZ [address] [place] [address] documented in this encounter Visit Diagnoses Not on filedocumented in this encounter Care Teams Giver Relationship Specialty Start Date End Date Unknown, Provider, PCP - General 05/03/09 documented as of this encounter
--- OUTSIDE RECORDS SUMMARY | 2024-09-30 11:32 | XMS_ITS | Encounter Summary ---
Author Organization [facility] [place] [address] Care Team Providers Care Technical Operations Manager Name Role Phone Suzanne De Guzman MD Primary Care Provider [phone] Encounter Details Date Type Department Care Team (Latest Contact Info) Description 11/08/2015 11:45 AM EST Office Visit Hematology/Oncology at [address] [phone] Marie Cornejo APRN Adenocarcinoma of breast, left Social History [...] Sign Reading Time Taken Comments Blood Pressure 147/86 11/08/2015 11:52 AM EST Pulse 79 11/08/2015 11:52 AM EST Temperature 36.7 ??C (98.1 ??F) 11/08/2015 11:[address] Respiratory Rate 16 11/08/2015 11:52 AM EST Oxygen Saturation 100% 11/08/2015 11:52 AM EST Inhaled Oxygen Concentration - - Weight 91.6 kg (202 lb) 11/08/2015 11:52 AM EST Height 175.3 cm (5' 9.02) 11/08/2015 11:[address] Body Mass Index 29.82 11/08/2015 11:52 AM EST documented in this encounter Progress Notes * Marie Cornejo APRN - 11/08/2015 12:04 PM EST Images from the original note were not included. Subjective: Patient ID: Ligia Lara is a 60 y.o. female. HPI Comments: Patient returns for [...] breast resection andoophorectomy. She has been on skilled nursing adjuvant therapy first with tamoxifen and supsequently Femara. She has been on Femara for 11 years and is tolerating it well. She has had no symptoms or problems [...] years oftamoxifen Continues on letrozole at patient's request. Strong family history of cancer. Sister with [...] trying to care for her mother in [place] who had an MT. Overall she has been very healthy except for one round of strep throat last month. She sees her PCP regularly for hypertension. Review of Systems Constitutional: Negative for fever, [...] Her behavior is normal. Vitals reviewed. BP 147/86 mmHg Pulse 79 Temp(Src) 36.7 ??C (98.1 ??F) (Oral) Resp 16 Ht 175.3 cm (5' 9.02) Wt 91.627 kg (202 lb) BMI 29.82 kg/m2 SpO2 100% LAB: 11/05/15 CBC: WBC 7.77 hemoglobin 11.4 platelets 267 CMP: Sodium 139 potassium 4.2 BUN 20 creatinine 0.85 glucose 77 calcium 9.0 total bili 0.38 AST 24 ALT 31 alkaline phosphatase 79 total protein 7.1 albumin 3.8 date CA 27.29 03/19/15 25.4 09/05/13 29.9 [...] from her diagnosis and 11 years out from starting the Femara we will plan to move her visits to seeing us annually and I do not believe labs are necessary as long as she is getting them through her PCP on a yearly basis. These consist of simply a complete blood count, chemistries and liver function tests. In addition she should be monitored for osteoporosis. Her last DEXA scan was in March 2013 which was normal. Providing there are no interval problems she will return for f/u in one year without labs. We reviewed the fact that the optimal duration of AI therapy is unknown for someone in her case, and given the lack of new data and she would like to continue letrozole. She will bein touch in the interim if there are [...] Michael Nolasco MD documented in this encounter Miscellaneous Notes * Addendum Note - Marie Cornejo APRN - 11/08/2015 4:38 PM ESTAddended by: MARIE CORNEJO on: 11/08/2015 04:38 PM Modules accepted: Orders, Level of Service documented in this encounter Plan of Treatment Not on file documented as of this encounter Procedures Procedure Name Priority Date/Time Associated Diagnosis Comments DIAGNOSTIC RADIOLOGY SCAN 12/05/2015 12:00 AM EST documented in this encounter Results * SCAN DOC: DIAGNOSTIC RADIOLOGY (12/05/2015 12:00 AM EST) Anatomical Region Laterality Modality Other Scanning Provider MEDIA MGR SCAN EXT O RDR/RSLT documented in this encounter Visit Diagnoses Diagnosis Adenocarcinoma of breast, left documented in this encounter Care Teams Technical Operations Manager Relationship Specialty Start Date End Date Suzanne De Guzman MD [address] [place] [address] PCP - General 08/16/13 documented as of this encounter
--- OUTSIDE RECORDS SUMMARY | 2024-09-30 11:32 | XMS_ITS | Encounter Summary ---
Author Organization [facility] Address [address] [place] [address] Care Team Providers Care Anesthesiology Physician Name Role Phone Unknown, Provider Primary Care Provider Unava ilable Encounter Details Date Type Department Care Team (Late st Contact Info) Description 01/31/2008 Results Only [facility] [place] conversion [address] [place] [address] Nikolas Chávez MD [address] [facility] [address] [place] [address] Social History Tobacco Use Types [...] Priority Date/Time Associated Diagnosis Comments CYTOPATHOLOGY Routine 01/31/2008 0:00 EDT documented in this encounter Results * CYTOPATHOLOGY (01/31/2008 0:00 EDT) Pathology Report: CYTOPATHOLOGY REPORT Reports generated via electronic interface contain original data; however they are lacking the format of the original report. Caution should be taken when reading/interpreti ng unformatted reports. Name: ? LIGIA PATEL ? Accession #: ? [id number] : ? 1955 (Age: 52) ??F ?Collect Date: ? 01/31/2008 Location: ? [facility] ? Receive Date: ? 02/01/2008 Provider: ?NIKOLAS CHÁVEZ MD Copy to: ? Specimen/Source: ?ThinPrep Pap Test, Cervix/Endocervix, processed on [employer] ThinPrep Imaging System, with manual evaluation Last Menstrual Period: ? Other: ? Additional clinical information: nl exam ? SPECIMEN ADEQUACY ? Satisfactory for Evaluation - transformation zone component present GENERAL CATEGORIZATION ? Negative for Intraepithelial Lesion or Malignancy ? Document reviewed and electronically signed by: ? Gunjan Ernandez, CT(ASCP) ? Report Date: ??02/04/2008 11:27 End of Report [facility] 01/31/2008 02/01/2008 us Nikolas Chávez MD PATHOLOGY ORDERABLES Final Resu lt [facility] [address] [place] [address] documented in this encounter Visit Diagnoses Not on filedocumented in this encounter Care Teams Anesthesiology Physician Relationship Specialty Start Date End Date Unknown, Provider, PCP - General 05/03/09 documented as of this encounter
--- OUTSIDE RECORDS SUMMARY | 2024-09-30 11:32 | XMS_ITS | Encounter Summary ---
[place] [address] Care Team Providers Care Sexual Assault Response Coordinator Name Role Phone Suzanne De Guzman MD Primary Care Provider [phone] Encounter Details Date Type Department Care Team (Late st Contact Info) Description 09/22/[address] [address] Jesu Post MD Malignant neoplasm of breast (female), unspecified site Social History Tobacco Use Types Packs/Day Years [...] as of this encounter Visit Diagnoses Diagnosis Malignant neoplasm of breast (female), unspecified site documented in this encounter Care Teams Sexual Assault Response Coordinator Relationship Specialty Start Date End Date Suzanne De Guzman MD [address] [place] [address] PCP - General 08/16/13 documented as of this encounter
--- OUTSIDE RECORDS SUMMARY | 2024-09-30 11:32 | XMS_ITS | Encounter Summary ---
Author Organization [facility] Address [address] [place] [address] Care Team Providers Care Marketing Content Specialist Name Role Phone Unknown, Provider Primary Care Provider Unava ilable Encounter Details Date Type Department Care Team (Late st Contact Info) Description 12/30/2021 Lab Requisition [facility] Pathology & Laboratory Medicine - [facility] [address] [place] [address] Divya Rojas MD [address] [place] [address] [address] [place] [id number] Encounter for screening for malignant neoplasm of colon Social History Tobacco Use Types Packs/Day Years [...] Priority Date/Time Associated Diagnosis Comments SURGICAL PATHOLOGY Today 12/30/2021 8:28 EDT Encounter for screening for malignant neoplasm of colon documented in this encounter Results * SURGICAL PATHOLOGY (12/30/2021 8:28 EDT) Note to Patient The following pathology results have been interpreted by your pathologist and may be available to you before your health provider has had the opportunity to review them. Please allow time for your provider to receive these results and explore management options, if applicable. 01/02/2022 8:48 EDT [facility] Final Diagnosis A. COLON, TRANSVERSE, POLYP, BIOPSY: - Submucosal leiomyoma. - Overlying colonic mucosa with no significant diagnostic abnormality. - Deeper levels examined. B. RECTUM, POLYPS X3, BIOPSY: - Hyperplastic polyps. - Separate fragment of squamous mucosa with no significant diagnostic abnormality. 01/02/2022 8:48 [facility] Attestation By the signature below, the attending physician certifies that they have 1) personally conducted a gross and/or microscopic examination of the described specimen(s), and/or personally interpreted the results of laboratory testing of the described specimen(s), and 2) personally rendered or confirmed the above diagnosis. 01/02/2022 8:48 [facility] at 0848 Clinical History Colonoscopy screening, history of polyps 01/02/2022 8:48 [facility] Gross Description A. Received in formalin labelled with proper patient identification (initials T, D) and transverse colon polyp are two pale-sarmiento tissues (0.3 x 0.3 x 0.2 cm and 0.3 x 0.2 x 0.1 cm). Entirely submitted in A1. B. Received in formalin labelled with proper patient identification (initials T, D) and rectal polyps x3 are three pale sarmiento-white focally brown speckled tissues (0.3 x 0.3 x 0.2 cm to 0.2 x 0.2 x 0.2 cm). Entirely submitted in B1. Lorne Duckworth 12/31/2021 7:43 01/02/2022 8:48 T [facility] Performing Lab [facility] 01/02/2022 8:48 T [facility] Scanned Images 01/02/2022 8:48 [facility] Tissue SPECIMEN FROM RECTUM / Unknown 12/30/2021 8:28 EDT 12/30/2021 17:34 EDT Tissue specimen (specimen) SPECIMEN FROM RECTUM / Unknown 12/30/2021 8:28 EDT 12/30/2021 17:34 EDT us Divya Rojas MD PATHOLOGY ORDERABLES Fin al Result [facility] [address] [place] [address] documented in this encounter Visit Diagnoses Diagnosis Encounter for screening for malignant neoplasm of colon Special screening for malignant neoplasms, colon documented in this encounter Care Teams Marketing Content Specialist Relationship Specialty Start Date End Date Unknown, Provider, PCP - General 05/03/09 documented as of this encounter
--- OUTSIDE RECORDS SUMMARY | 2024-09-30 11:32 | XMS_ITS | Encounter Summary ---
Author Organization [facility] Address [address] [place] [address] Care Team Providers Care Roll Carrier Name Role Phone Unknown, Provider Primary Care Provider Unava ilable Encounter Details Date Type Department Care Team (Late st Contact Info) Description 12/17/2000 Results Only [facility] [place] conversion [address] [place] [address] Nikolas Chávez MD 29 [facility] [address] [place] [address] Social History Tobacco Use Types [...] Priority Date/Time Associated Diagnosis Comments CYTOPATHOLOGY Routine 12/17/2000 0:00 EST documented in this encounter Results * CYTOPATHOLOGY (12/17/2000 0:00 EST) Pathology Report: CYTOPATHOLOGY REPORT Reports generated via electronic interface contain original data; however they are lacking the format of the original report. Caution should be taken when reading/interpreti ng unformatted reports. Name: ? LIGIA PATEL ? Accession #: ? [id number] : ? 1955 (Age: 45) ??F ?Collect Date: ? 12/17/2000 Location: ? [facility] ? Receive Date: ? 12/21/2000 Provider: ?NIKOLAS CHÁVEZ MD Copy to: ? Specimen/Source: ?ThinPrep Pap Test, Cervix/Endocervix Last Menstrual Period: ? Menstrual/Pregnanc y Status: ? Amenorrhea ? SPECIMEN ADEQUACY ? Satisfactory for evaluation. GENERAL CATEGORIZATION ? Within Normal Limits ? Document reviewed and electronically signed by: ? Tamra Jamison, ??SCT(ASCP) ? Report Date: ??12/22/2000 09:40 End of Report [facility] 12/17/2000 12/21/2000 us Nikolas Chávez MD PATHOLOGY ORDERABLES Final Resu lt [facility] [address] [place] [address] documented in this encounter Visit Diagnoses Not on filedocumented in this encounter Care Teams Roll Carrier Relationship Specialty Start Date End Date Unknown, Provider, PCP - General 05/03/09 documented as of this encounter
--- OUTSIDE RECORDS SUMMARY | 2024-09-30 11:32 | XMS_ITS | Clinical Summary ---
Author Organization [facility] Address [facility] [place] [address] Care Team Providers Care Bag Bailer Name Role Phone Suzanne De Guzman MD Primary Care Provider [phone] Allergies Active Allergy Reactions Criticality Noted Date Comments Penicillins Unknown Medications Medication Sig Dispensed Refills Start Date End Date Status multivitamin (THERAGRAN) tablet 08/21/2010 Active venlafaxine (EFFEXOR-XR) 37.5 mg 24 hr capsuleIndications:Margarita hewitt cancer Take 37.5 mg by mouth daily. Active CALCIUM CARBONATE/VITAMIN D3 (CALCIUM WITH VITAMIN D ORAL)Indications:Adenoc arcinoma of breast Take by mouth 2 times daily. Active amlodipine (NORVASC) 5 mg tablet Take 10 mg by mouth daily. 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 1996 left breast mass found, biopsy showed a borderline Phyllodes tumor. She underwent wide local excision. b. 1998 found to have multicentric cancer in L breast, stage pT1B pN0. She underwent excisional biopsy. Specimen number one showed an invasive ductal carcinoma which was moderately differentiated, measuring 0.7 cm with associated DCIS. Second focus of adenocarcinoma was also found, It was moderately differentiated cancer measuring [...] on Femara based on data suggesting improved outcome in patients who received further hormonal therapy with aromatase inhibitors following five years of tamoxifen. Last f/u 09/16/13 continues Femara FHx: Sister with invasive breast cancer at the age of 28. Another sister with lung cancer who was a smoker. Two maternal aunts have also had breast cancer. Both aunt has also had colon cancer and is alive and well. The patient has other family members with lung cancer, but they were smokers. Mother recently diagnosed with breast cancer at age 80. Hypertension Family History Medical History Relation Comments Prostate Cancer Father metastatic Lung Cancer Maternal Aunt 1 smoker Breast Cancer Maternal Aunt 2 Breast Cancer Maternal Aunt 3 DCIS; 2nd primar y vs recurrence at 84 Colorectal Cancer Maternal Aunt 3 Breast Cancer Maternal Cousin Has either recur rence or 2nd breast primary Bladder Cancer Maternal Grandfather Breast Cancer Mother Lymphoma Nephew Non-hodgkins Melanoma Niece Breast Cancer Paternal Aunt Colorectal Cancer Paternal Aunt Lung Cancer Paternal Grandfather smoker Melanoma Paternal Grandmother Breast Cancer Sister 1 Lung Cancer Sister 2 smoker Relation Status Comments Father (Age 81) Maternal Aunt 1 (Age 74) Maternal Aunt 2 (Age 59) Maternal Aunt 3 Alive Maternal Cousin Alive Maternal Grandfather Mother Nephew Alive Niece Alive Paternal Aunt Paternal Grandfather (Age 43) Paternal Grandmother (Age 75) Sister 1 (Age 36) Sister 2 (Age 46) Social History Tobacco Use Types Packs/Day Years Used Date Smoking Tobacco: Former Cigarettes Q uit: 02/26/1990 Smokeless Tobacco: Never Alcohol Use Standard Drinks/Week Comments No 0 (1 standard drink = 0.6 oz pur e alcohol) Sex and Gender Information Value Date Recorded Sex Assigned at Not on file Gender Identity Not on file Sexual Orientation Not on file Last Filed Vital Signs Vital Sign Reading [...] Mass Index 30.55 11/13/2017 11:08 AM EST Plan of Treatment Health Maintenance Due Date Last Done Comments CT Colonography 1955 Colonoscopy 1955 Colorectal Cancer Screening 1955 FIT DNA 1955 FIT 1955 Sigmoidoscopy (10 year) with FIT yearly 1955 Sigmoidoscopy 1955 Hepatitis C Screening 1974 Lipid Screening 1974 Tetanus/Diphtheria/Pertussis Vaccines (1 - Tdap) 08/25 Breast Cancer Share Decision Needed 1996 Breast Cancer screening 1996 Pneumoccocal Vaccine: 65+ (1 of 1 - PCV) 2006 Zoster vaccine (1 of 2) 2006 Advance Directive 2011 Bone Density Scan 2021 Covid-19 Vaccine (1 - 2023- season) 2024 Influenza (Flu) vaccine (1 o f 1 - Influenza standard series) 06/05/2024 Care Teams Bag Bailer Relationship Specialty Start Date End Date Suzanne De Guzman MD [address] [place], [place] [address] PCP - General 08/16/13
--- OUTSIDE RECORDS SUMMARY | 2024-09-30 11:32 | XMS_ITS | Encounter Summary ---
[place] [address] Care Team Providers Care Players Club Representative Name Role Phone Suzanne De Guzman MD Primary Care Provider [phone] Reason for Visit * Reason Onset Date Comments Medication Refill 10/30/2014 Encounter Details Date Type Department Care Team (Late st Contact Info) Description 10/30/[address] [place] [address] Jesu Post MD Malignant neoplasm of female breast, unspecified laterality Social History Tobacco Use Types [...] encounter Visit Diagnoses Diagnosis Malignant neoplasm of female breast, unspecified laterality documented in this encounter Care Teams Players Club Representative Relationship Specialty Start Date End Date Suzanne De Guzman MD [address] [place] [address] PCP - General 08/16/13 documented as of this encounter
--- OUTSIDE RECORDS SUMMARY | 2024-09-30 11:32 | XMS_ITS | Encounter Summary ---
Author Organization [facility] [place] [address] Care Team Providers Care Rougher Machine Operator Name Role Phone Suzanne De Guzman MD Primary Care Provider [phone] Reason for Visit * Reason Onset Date Comments Results 12/07/2015 Dexa Scan Encounter Details Date Type Department Care Team (Late st Contact Info) Description 12/07/2015 Telephone Hematology/Oncology at [address] [address] Ivana Chu RN Results (Dexa Scan) Social History Tobacco Use Types Packs/Day Years [...] encounter Miscellaneous Notes * Telephone Encounter - Ivana Chu RN - 12/07/2015 11:36 AM EST Notified Ligia of dexa scan results and confirmed that she was taking calcium and vitamin D documented in this encounter Plan of Treatment Not on file documented as of this encounter Visit Diagnoses Not on filedocumented in this encounter Care Teams Rougher Machine Operator Relationship Specialty Start Date End Date Suzanne De Guzman MD [address] [place], [place] [address] PCP - General 08/16/13 documented as of this encounter
--- OUTSIDE RECORDS SUMMARY | 2024-09-30 11:32 | XMS_ITS | Encounter Summary ---
[place] [address] Care Team Providers Care Carrier Associate Name Role Phone Suzanne De Guzman MD Primary Care Provider [phone] Encounter Details Date Type Department Care Team (Late st Contact Info) Description 04/05/2022 Telephone Hematology [place] [address] Raul Mckenzie MD Social History Tobacco Use Types Packs/Day [...] encounter Miscellaneous Notes * Telephone Encounter - Raul Mckenzie MD - 04/05/2022 3:20 PM EDT Heme-Onc Staff I have reviewed the patient's record and, given personal and/or family history of cancer she shouldbe seen by a genetic counselor. This is scheduled for next week. Raul Mckenzie MD marine fuel dock attendant in Hematology-Oncology documented in this encounter Plan of Treatment Not on file documented as of this encounter Visit Diagnoses Not on filedocumented in this encounter Care Teams Carrier Associate Relationship Specialty Start Date End Date Suzanne De Guzman MD [address] [place], [place] [address] PCP - General 08/16/13 documented as of this encounter
--- OUTSIDE RECORDS SUMMARY | 2024-09-30 11:32 | XMS_ITS | Encounter Summary ---
Author Organization [facility] Address [address] [place] [address] Care Team Providers Care Top Tile Decorator Name Role Phone Unknown, Provider Primary Care Provider Unava ilable Encounter Details Date Type Department Care Team (Late st Contact Info) Description 09/08/2019 Lab Requisition [facility] Pathology & Laboratory Medicine - [facility] [address] [place] [address] Dalton Love MD [address] [place] [phone] Encounter for other general examination Social History Tobacco Use Types Packs/Day Years [...] Date/Time Associated Diagnosis Comments SURGICAL PATHOLOGY Today 09/08/2019 15 :44 EST Encounter for other general examination documented in this encounter Results * SURGICAL PATHOLOGY (09/08/2019 15:44 EST) Final Diagnosis A. ORAL CAVITY, UVULA MASS, EXCISION: - Squamous papilloma. - Negative for high-grade dysplasia. 09/12/2019 11:02 EST [facility] at 1102 Clinical History Uvular mass 09/12/2019 11:02 EST [facility] Attestation By the signature below, the attending physician certifies that they have personally conducted a gross and/or microscopic examination of the described specimens and rendered or confirmed the above diagnosis. 09/12/2019 11:02 [facility] at 1102 Gross Description A. Received in formalin labelled with proper patient identification (initials T, D) and uvular mass are 2 fragments of sarmiento-white soft tissue (0.2 x 0.2 x 0.2 cm and 0.4 x 0.2 x 0.2 cm). The specimen is submitted in toto in A1. Jackie Jhony 09/09/2019 09:30 09/12/2019 11:02 [facility] Scanned Images 09/12/2019 11:02 [facility] Tissue ENTIRE UVULA PALATINA / Unknown 09/08/2019 15:44 EST 09/08/2019 21:39 EST us Dalton Love MD PATHOLOGY ORDERABLES Final Resul t [facility] [address] [place] [address] documented in this encounter Visit Diagnoses Diagnosis Encounter for other general examination documented in this encounter Care Teams Top Tile Decorator Relationship Specialty Start Date End Date Unknown, Provider, PCP - General 05/03/09 documented as of this encounter
--- OUTSIDE RECORDS SUMMARY | 2024-09-30 11:32 | XMS_ITS | Encounter Summary ---
Author Organization [facility] Address [address] [place] [address] Care Team Providers Care Band Sawing Machine Operator Name Role Phone Unknown, Provider Primary Care Provider Unava ilable Encounter Details Date Type Department Care Team (Latest Contact Info) Description 11/26/2016 10:48 EST - 11/26/2016 23:59 EST Hospital Encounter [address] [address] Unknown, Provider, Discharge Disposition: Home or Self Care Social History Tobacco Use Types Packs/Day Years Used Date Smoking Tobacco: Never Assessed Comments Unknown Sex and Gender Information Value Date Recorded Sex Assigned at Not on file Legal Sex Female 18:19 EST Gender Identity Not on file Sexual Orientation Not on file documented as of this encounter Discharge Disposition Disposition Code Departure Means Destination Home or Self Intermediate documented in this encounter Plan of Treatment Not on file documented as of this encounter Visit Diagnoses Not on filedocumented in this encounter Care Teams Band Sawing Machine Operator Relationship Specialty Start Date End Date Unknown, Provider, PCP - General 05/03/09 documented as of this encounter
--- OUTSIDE RECORDS SUMMARY | 2024-09-30 11:32 | XMS_ITS | Encounter Summary ---
Author Organization [facility] Address [address] [place] [address] Care Team Providers Care Senior Reliability Engineer Name Role Phone Unknown, Provider Primary Care Provider Unava ilable Encounter Details Date Type Department Care Team (Late st Contact Info) Description 08/22/2004 Results Only [facility] [place] conversion [address] [place] [address] Nikolas Chávez MD 29 [facility] [address] [place] [address] Social History Tobacco Use Types [...] Date/Time Associated Diagnosis Comments SURGICAL PATHOLOGY Routine 08/22/2004 0:00 EST documented in this encounter Results * SURGICAL PATHOLOGY (08/22/2004 0:00 EST) Pathology Report: SURGICAL PATHOLOGY REPORT Reports generated via electronic interface contain original data; however they are lacking the format of the original report. Caution should be taken when reading/interpreti ng unformatted reports. Name: ? LIGIA PATEL ? Accession #: ? [id number] ? : ? 1955 (Age: 48) ??F ? Collect Date: ? 08/22/2004 ? Location: ? [facility] ? Receive Date: ? 08/23/2004 ? Provider: NIKOLAS CHÁVEZ MD Copy to: TAHMINA CLINE MD ? Final Pathologic Diagnosis: ? Endometrium, biopsy: 1. ?Strips of inactive endometrium with tubal metaplasia. 2. ?Stromal and glandular breakdown. 3. ?No evidence of hyperplasia or atypia. Document reviewed and electronically signed by: MENDY GERMAN MD Report ??Date: 08/27/2004 09:18 By the signature above, the attending physician certifies that he/she has personally conducted a gross and/or microscopic examination of the described specimens and rendered or confirmed the above diagnosis. Specimen(s) Received: ? Endomet biopsy Clinical History: ? Tamoxifen Rx; PMB menses 08/21/04; LMP: ??Now Gross Description: ? Received in formalin labelled Jane and endometrium is a 1.5 x 1.5 x 0.5 cm aggregate of clotted blood admixed with scant soft tissue, submitted in toto in one cassette. ??(Nancie Hatfield)/[facility] End of Report [facility] 08/22/2004 08/23/2004 15: 03 EST us Nikolas Chávez MD PATHOLOGY ORDERABLES Final Resu lt [facility] [address] [place] [address] documented in this encounter Visit Diagnoses Not on filedocumented in this encounter Care Teams Senior Reliability Engineer Relationship Specialty Start Date End Date Unknown, Provider, PCP - General 05/03/09 documented as of this encounter
--- OUTSIDE RECORDS SUMMARY | 2024-09-30 11:32 | XMS_ITS | Encounter Summary ---
Author Organization [facility] Address [address] [place] [address] Care Team Providers Care Fur Drummer Name Role Phone Unknown, Provider Primary Care Provider Inessa ilmitchell Encounter Details Date Type Department Care Team (Late st Contact Info) Description 03/23/2020 Lab Requisition [facility] Pathology & Laboratory Medicine - [facility] [address], [place] [id number] Outr Resulting Lab, Provider Social History Tobacco [...] ORDER STANDALONE - BROAD COVID TEST Today 03/23/2020 9:34 EDT COVID-19 TESTING Routine 03/23/2020 9:34 EDT documented in this encounter Results * DO NOT ORDER STANDALONE - BROAD COVID TEST (03/23/2020 9:34 EDT) COVID-19 rt-PCR Result NEGATIVE Negative 03/25/2020 8:27 EDT [facility] Comment: 2019-novel Coronavirus (2019-nCoV) [...] in accordance with CLIA regulations, [employer] (CAP) guidelines (Dec 22, 2019), and FDA guidance (Dec 03, 2019). This test is only for use under the Food and Drug Administration's Emergency Use Authorization. Swab ENTIRE NASOPHARYNX / Unknown 03/23/2020 9:34 EDT 03/23/2020 17:13 EDT us Provider Outr Resulting Lab MICROBIOLOGY - GENER AL ORDERABLES Final Result [facility] [place], [place] * COVID-19 TESTING (03/23/2020 9:34 EDT) COVID-19 rt-PCR Result NEGATIVE Negative 03/25/2020 10:38 EDT [facility] Comment: 2019-novel Coronavirus (2019-nCoV) not detected [...] in accordance with CLIA regulations, [employer] (CAP) guidelines (Dec 22, 2019), and FDA guidance (Dec 03, 2019). This test is only for use under the Food and Drug Administration's Emergency Use Authorization. Performing Lab [facility] 03/25/2020 10:38 EDT [facility] Swab 03/23/2020 9:34 EDT 03/23/2020 17:13 EDT us Provider Outr Resulting Lab MICROBIOLOGY - GENER AL ORDERABLES Final Result [facility] [address] [place] [address] [facility] [place], [place] documented in this encounter Visit Diagnoses Not on filedocumented in this encounter Care Teams Fur Drummer Relationship Specialty Start Date End Date Unknown, Provider, PCP - General 05/03/09 documented as of this encounter
--- OUTSIDE RECORDS SUMMARY | 2024-09-30 11:32 | XMS_ITS | Encounter Summary ---
[place] [address] Care Team Providers Care Internet Marketing Assistant Name Role Phone Suzanne De Guzman MD Primary Care Provider [phone] Encounter Details Date Type Department Care Team (Late st Contact Info) Description 04/10/2022 Orders Only [place] [address] [facility] [address] [facility] [address] History of breast cancer; Family history of malignant neoplasm of breast; Family history of malignant neoplasm of prostate; Family history of colon cancer Social History Tobacco Use Types Packs/Day Years [...] on file documented as of this encounter Results * Research Venipuncture (04/10/2022 10:55 AM EDT) Research Venipuncture [facility] Blood 04/10/2022 10:5 5 AM EDT 04/10/2022 11:01 AM EDT Narrative Resulting Agency Comment Spec In Lab Raul Mckenzie MD CHEMISTRY ORDERABLES [facility] [place] [address] documented in this encounter Visit Diagnoses Diagnosis History of breast cancer Personal history of malignant neoplasm of breast Family history of malignant neoplasm of breast Family history of malignant neoplasm of prostate Family history of colon cancer Family history of malignant neoplasm of gastrointestinal tract documented in this encounter Care Teams Internet Marketing Assistant Relationship Specialty Start Date End Date Suzanne De Guzman MD [address] [place] [address] PCP - General 08/16/13 documented as of this encounter
--- OUTSIDE RECORDS SUMMARY | 2024-09-30 11:33 | XMS_ITS | Encounter Summary ---
[place] [address] Care Team Providers Care Director Of Strategic Partnerships Name Role Phone Bobbi Blum MD Primary Care Provider [phone] Reason for Visit * Reason Comments Follow-up Encounter Details Date Type Department Care Team (Late st Contact Info) Description 06/02/2013 4:00 PM EDT Office Visit Dermatology [facility] [address] [place], [place] [id number] Willie Field MD [address] [place] [address] RD, [place] [address] Psoriasis (Primary Dx) Social History Tobacco Use Types [...] Progress Notes * Willie Field MD - 06/02/2013 4:31 PM EDT Problem: Followup psoriasiform hand dermatitis. Ligia follows up and is slowly seeing improvement. She is tolerating the cyclosporin well without headaches, stomach upset, or any other issues. Physical examination reveals the erythema and hyperkeratosis of the entire palmar hands has flattened down, actually, significantly and the erythema lessened. Also, the hyperkeratosis and distal fissuring of the toes has also improved. She continues to have no stigmata of psoriasis elsewhere. Assessment and Plan: Psoriasiform hand dermatitis. a. Continue cyclosporin 100 mg two p.o. q.a.m. and one p.o. at bedtime; #90 dispensed for a one-month supply with zero refills. b. Return to the clinic in one month for repeat check. c. 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 I recommended CeraVe cream as a good emollient for her dry skin. d. Blood pressure today is 130/74. Return to the clinic in another month for repeat check. Hopefully at that time we will be able to start to taper the patient down on her cyclosporin dose. I reassured her about the safety profile of this medication. COPY: oBbbi Blum M.D. documented in this encounter Plan of Treatment Not on file documented as of this encounter Visit Diagnoses Diagnosis Psoriasis- Primary Other psoriasis documented in this encounter Care Teams Director Of Strategic Partnerships Relationship Specialty Start Date End Date Bobbi Blum MD HOSPITALIST SERVICES [address] [place] [address] [place] [address] PCP - General 10/01/12 08/15/13 documented as of this encounter
--- OUTSIDE RECORDS SUMMARY | 2024-09-30 11:33 | XMS_ITS | Encounter Summary ---
Author Organization [facility] [place] [address] Care Team Providers Care Land Development Manager Name Role Phone Bobbi Blum MD Primary Care Provider [phone] Encounter Details Date Type Department Care Team (Late st Contact Info) Description 02/23/2013 Telephone Hematology [place] [id number] Delmy Bruner, [facility] Social History Tobacco Use Types Packs/Day Years [...] Miscellaneous Notes * Telephone Encounter - Delmy Bruner, [place] - 02/24/2013 10:22 AM EDT I called Ligia to let her know that BRACAnalysis Rearrangement Test (JHONY), a test which looks for deletions, duplications and rearrangements in the BRCA1 and BRCA2 genes, [facility] negative or normal. I discussed the option of additional testing for other genes associated with a higher risk of breast cancer, such as [employer] BreastNext Panel. We reviewed the benefits, risks and limitations of this test. Ligia is aware that we do not have a lot of data available on the specific cancer risks associated with some of the genes tested for. In addition, it is possible to identify variants in these genes which we may not know how to interpret at thistime. Finally, additional genes will most likely be discovered in the future that also increase therisk of breast cancer, that are not part of this panel. Ligia informed me that her niece, who was recently diagnosed with melanoma at age 34 and whose mother, Ligia's sister, had breast cancer at age28, is undergoing a genetic evaluation. I would like to obtain copies of any genetic test results pe rformed as part of her evaluation. Specifically, I am wondering if she underwent genetic testing for BRCA1 and BRCA2 and p53 associated with Li-Fraumeni syndrome. Ligia's niece may wite-out her name and any identifiers, as I do not need to know who she is. I only need to know that she is Ligia's niece. Upon review of her evaluation and genetic test results, I will contact Ligia to further discusswith her the option of genetic testing with BreastNext Panel. documented in this encounter Plan of Treatment Not on file documented as of this encounter Visit Diagnoses Not on filedocumented in this encounter Care Teams Land Development Manager Relationship Specialty Start Date End Date Bobbi Blum MD HOSPITALIST SERVICES [address] [place] [address] [place] [address] PCP - General 10/01/12 08/15/13 documented as of this encounter
--- OUTSIDE RECORDS SUMMARY | 2024-09-30 11:33 | XMS_ITS | Encounter Summary ---
[place] [address] Care Team Providers Care Sheet Turner Name Role Phone Suzanne De Guzman MD Primary Care Provider [phone] Reason for Visit * Reason Onset Date Comments Results 03/07/2011 Discuss amended BRCA1/2 test result Encounter Details Date Type Department Care Team (Late st Contact Info) Description 03/07/2011 Telephone Hematology [place] [id number] Delmy Bruner, [facility] Results (Discuss amended BRCA1/2 test result) Social History Tobacco Use Types Packs/Day Years Used Date Smoking Tobacco: Former Cigarettes Q uit: 02/26/1990 Sex and Gender Information Value Date Recorded Sex Assigned at Not on file Gender Identity Not on file Sexual Orientation Not on file documented as of this encounter Miscellaneous Notes * Telephone Encounter - Delmy Bruner, [place] - 03/10/2011 2:13 PM EDT I informed Ligia that I received updated information in regard to her BRCA1 and BRCA2 genetic test result. Below is an explanation of the new information and its implications. Ligia is welcome to contact us at [phone] with any questions or concerns. Initially, Ligia's Comprehensive BRACAnalysis test result showed a genetic variant of uncertain significance in the BRCA1 gene, specifically BRCA1 IVS18+10A>G (nucleotide substitution in a non-coding intervening sequence (IVS) occurring 10 base pairs from the end of exon 10). At that time, this alteration had been previously observed in 5 unrelated families. In one family studied further this variant did not track or segregate with cancer. Furthermore, the location of this specific variant was not predicted to significantly alter the production or function of the protein encoded by this gene. Therefore, it was unlikely that this alteration was disease causing, however we could not be comp letely sure. Since then, Birdi has completed additional studies concluding that this alteration is most likely a polymorphism. Therefore, in summary, the genetic basis, if any, of the breast cancer in Ligia and her family members has not been identified, this test result does not necessarily mean that Ligia's cancer was sporadic. This is because of two important limitations of the test. First, not all inherited predisposition to breast cancer is attributable to BRCA1 or BRCA2. Future research might identify other genes that when altered can increase one???s risk of cancer. Second, a small percentage of alterations in BRCA1 and BRCA2 are missed by the Comprehensive BRACAnalysis test. There is also a new test called BRACAnalysis Rearrangement Test (JHONY) which looks for additional alteration, specifically large deletions and rearrangements of the two genes, not picked up by Comprehensive BRACAnalysis. At this time, most insurance companies are not covering the costof this test which is $700. Ligia agreed to send me a copy of her insurance card in order to see ifher insurance covers the cost of this test, as she is interested in pursuing it. I will contact Ligia in the near future with this information. It is also unlikely that other relatives in Ligia's fami ly are at an increased risk of being BRCA1/2 alteration carriers. I also reviewed Ligia's screening plan. We agree with her periodic follow-up. We do not recommend any additional screening since Ligia underwent bilateral mastectomies and a hysterectomy with bilateral salpingo-oophorectomies in the past. Ligia also asked what we would recommend for her 31 year olddaughter. This year she already underwent a screening mammogram which showed dense breast tissue. Idiscussed with Ligia that her daughter may also consider annual breast MRI screening. I will readdress the issue of screening for Ligia and her daughter upon completion of additional testing if performed. Finally, I updated Ligia's family history. See History activity tab outside the Visit Navigator fordetails. documented in this encounter Plan of Treatment Not on file documented as of this encounter Visit Diagnoses Not on filedocumented in this encounter Care Teams Sheet Turner Relationship Specialty Start Date End Date Suzanne De Guzman MD [address] [place] [address] PCP - General 08/27/10 09/30/12 documented as of this encounter
--- OUTSIDE RECORDS SUMMARY | 2024-09-30 11:33 | XMS_ITS | Encounter Summary ---
[place] [address] Care Team Providers Care Head Of Talent Management Name Role Phone Bobbi Blum MD Primary Care Provider [phone] Reason for Visit * Reason Comments Follow-up Encounter Details Date Type Department Care Team (Late st Contact Info) Description 05/19/2013 3:00 PM EDT Office Visit Dermatology [address] [facility] [address] [place], [place] [id number] Willie Field MD [address] [place] [address] RD, [place] [address] Psoriasiform dermatitis (Primary Dx) Social History Tobacco [...] Progress Notes * Willie Field MD - 05/19/2013 3:27 PM EDT Problem: Followup psoriasiform hand dermatitis. Ligia follows up and is no better. Despite holding the losartan and in fact switching it to hydrochlorothiazide, her hand dermatitis did not improve using the clobetasol cream on at least a once daily basis since I last saw her in mid March 2013. She wonders what else can be done for this. Physical examination reveals erythema and hyperkeratosis of the entire palmar hands, worse on the right than on the left, extending up to around the lateral nail folds and with distal subungual hyperkeratosis and onycholysis of all 10 fingernails. She continues to have no other stigmata of psoriasis elsewhere. Assessment and Plan: Psoriasiform hand dermatitis. a. I continue to suspect that losartan, given the timeframe, was the trigger for this. b. The patient has already self-discontinued her hydrochlorothiazide, as someone told her that this might also cause skin rashes. c. The patient will be following up with Dr. Blum shortly for a blood pressure check. d. Given lack of response to two months of clobetasol cream, I recommended that we advance to oral therapy with cyclosporin. The patient weighs 90 kg. We will start her on 100 mg one p.o. b.i.d. for one week, then two p.o. q.a.m. and one p.o. at bedtime; #90 dispensed with zero refills. e. Return to the clinic in two weeks for repeat check and blood pressure check at that time. I would plan for a short course and then tapering of cyclosporin as her hands clear, hopefully one and a half to two months, and then discontinuing it. Note: Her eventual dosing of cyclosporin will represent 3.34 mg/kg per day. COPY: Bobbi Blum M.D. Note: A MICK was performed of her scaling hands, and there is no evidence of any hyphae. documented in this encounter Plan of Treatment Not on file documented as of this encounter Visit Diagnoses Diagnosis Psoriasiform dermatitis- Primary Other psoriasis and similar disorders documented in this encounter Care Teams Head Of Talent Management Relationship Specialty Start Date End Date Bobbi Blum MD HOSPITALIST SERVICES [address] [place] [address] [place] [address] PCP - General 10/01/12 08/15/13 documented as of this encounter
--- OUTSIDE RECORDS SUMMARY | 2024-09-30 11:33 | XMS_ITS | Encounter Summary ---
[place] [address] Care Team Providers Care Nurse Auditor Name Role Phone Unavailable Primary Care Provider Unavailabl e Encounter Details Date Type Department Care Team ([facility] Contact Info) Description 08/21/2010 3:00 PM EST Follow-Up [place] [address] Jesu Post MD Social History Tobacco Use Types Packs/Day Years Used Date Smoking Tobacco: Never Assessed Sex and Gender Information Value Date Recorded Sex Assigned at Not on file Gender Identity Not on file Sexual Orientation Not on file documented as of this encounter Plan of Treatment Not on file documented as of this encounter Visit Diagnoses Not on filedocumented in this encounter
--- OUTSIDE RECORDS SUMMARY | 2024-09-30 11:33 | XMS_ITS | Encounter Summary ---
Author [facility] [place] [address] Care Team Providers Care Emergency Medicine Name Role Phone Suzanne De Guzman MD Primary Care Provider [phone] Reason for Visit * Reason Comments Breast Cancer follow up Encounter Details Date Type Department Care Team (Late st Contact Info) Description 02/16/2012 3:00 PM EDT Follow-Up Hematology Oncology at [address] [address] Cornelia Bartlett, FISCAL SERVICES MANAGER Adenocarcinoma of breast (Primary Dx) Discharge Disposition: Home Social History [...] Sign Reading Time Taken Comments Blood Pressure 150/82 02/16/2012 2:54 PM EDT Pulse 78 02/16/2012 2:54 PM EDT Temperature - - Respiratory Rate 16 02/16/2012 2:54 PM EDT Oxygen Saturation 99% 02/16/2012 2:54 PM EDT Inhaled Oxygen Concentration - - Weight 86.5 kg (190 lb 11.2 oz) 02/16/2012 2:54 PM EDT Height 175.7 cm (5' 9.17) 02/16/2012 2:54 PM ED T Body Mass Index 28.02 02/16/2012 2:54 PM EDT documented in this encounter Progress Notes * Cornelia Bartlett, FISCAL SERVICES MANAGER - 02/16/2012 3:12 PM EDT Hematology/Oncology Outreach Clinic [facility] ESTABLISHED PATIENT EVALUATION: Following adjuvant chemotherapy she underwent prophyllactic breast resection and oophorectomy. She has been on fdc adjuvant therapy first with tamoxifen and supsequently Femara. She has been on Femara for 5+ years and is tolerating it well. Her last DEXA 02/10/11showed normal BMD. She takes calcium and Vitamin D and is an avid walker. In the interval since her last visit she had a screening colonoscopy (07/14/11) which was negative except for scattered diverticula. Stage 1 adenocarcinoma - left breast a. [...] inhibitors following five years oftamoxifen Last f/u 08/20/11 continues on letrozole Strong family history of cancer. Sister with invasive breast cancer at the age of 28. Another sister with lung cancer who was a smoker. Two maternal aunts have also had breast cancer. Both aunt has also had colon cancer and is alive and well. The patient has other family members with lung cancer, but they were smokers INTERIM HISTORY OF PRESENT ILLNESS: returns to the clinic today with INTERIM SOCIAL/FAMILY HISTORY: No interval change. MEDS: REVIEW OF SYSTEMS: Energy: stable Pain: no Appetite:good Fevers/chills/drenching sweats:No Bruising/bleeding/melena:No Recent infections:No HEENT: negative Nausea/vomiting/diarrhea/constipation:No Dysuria: No SOB/cough/chest pain:No Change in adenopathy or other masses:No Unexpected weight loss or gain:No Skin rashes or petechiae:No Musculoskeletal complaints:No Extremities: Negative upper and lower bilaterally Neurologic symptoms:No PHYSICAL EXAM: NAD, A & O x 3. HEENT: Sclera anicteric, oral pharynx is clear. Skin: Without rash or petechia. Lymph: No cervical, supraclavicular, axillary lymphadenopathy. Lungs: Bronchovesicular breath sounds throughout, no wheezes, rales, rhonci. Cardiac: Regular rate rhythm, S1, S2, no murmur, rub or gallop. Abdomen: Soft, non-tender, spleen and liver non palpable. Extremities: No lower extremity edema. M/S: No sternal or spinal tenderness. Neurologic: Gait steady, speech clear, cognition intact, no focal neurologic deficit. RADIOLOGY: no new studies LABORATORY: ASSESSMENT/PLAN: RTCfor follow up in XXX. Patient was reminded to call in the interim should questions or concerns arise. documented in this encounter Plan of Treatment Not on file documented as of this encounter Visit Diagnoses Diagnosis Adenocarcinoma of breast- Primary Malignant neoplasm of breast (female), unspecified site documented in this encounter Care Teams Emergency Medicine Relationship Specialty Start Date End Date Suzanne De Guzman MD [address] [place] [address] PCP - General 08/27/10 09/30/12 documented as of this encounter
--- OUTSIDE RECORDS SUMMARY | 2024-09-30 11:33 | XMS_ITS | Encounter Summary ---
Author Organization [facility] [place] [address] Care Team Providers Care Coal Handler Name Role Phone Suzanne De Guzman MD Primary Care Provider [phone] Reason for Visit * Reason Comments Follow-up Encounter Details Date Type Department Care Team ([facility] st Contact Info) Description 02/26/2011 3:00 PM EDT Follow-Up Hematology Oncology at [address] [phone] Tri March, Breast cancer (Primary Dx) Discharge Disposition: Home Social History Tobacco Use Types Packs/Day Years Used Date Smoking Tobacco: Former Cigarettes Q uit: 02/26/1990 Sex and Gender Information Value Date Recorded Sex Assigned at Not on file Gender Identity Not on file Sexual Orientation Not on file documented as of this encounter Last Filed Vital Signs Vital Sign Reading Time Taken Comments Blood Pressure 151/81 02/26/2011 3:00 PM EDT Pulse 85 02/26/2011 3:00 PM EDT Temperature 36.6 ??C (97.9 ??F) 02/26/2011 3:00 PM ED T Respiratory Rate 18 02/26/2011 3:00 PM EDT Oxygen Saturation 98% 02/26/2011 3:00 PM EDT Inhaled Oxygen Concentration - - Weight 91.5 kg (201 lb 11.5 oz) 02/26/2011 3:00 PM EDT Height 175.7 cm (5' 9.17) 02/26/2011 3:00 PM ED T Body Mass Index 29.64 02/26/2011 3:00 PM EDT documented in this encounter Progress Notes * Tri Cornelia E, MANAGER REPORT - 02/26/2011 3:56 PM EDT Hematology/Oncology Outreach Clinic - [place], [place], [id number] () - [phone] (fax) ESTABLISHED PATIENT EVALUATION: PHx/Problem List: 1. Stage 1 adenocarcinoma - left breast a. [...] therapy with aromatase inhibitors following five years oftamoxifen. 2. Strong family history of cancer. Sister with invasive breast cancer at the age of 28. Another sister with lung cancer who was a smoker. Two maternal aunts have also had breast cancer. Both aunt has also had colon cancer and is alive and well. The patient has other family members with lung cancer, but they were smokers 3. She had a screening colonoscopy in 2001 or 2002 which was negative. Followup was recommended in five years 4. labile blood pressure INTERIM HISTORY: Patient eturns for f/u now more than 10 years from diagnosis and treatment for a carcinoma of the breast presenting when she was 43 years old. She has a sister who developed breast cancer at the age of 28 during . Following adjuvant chemotherapy she underwent prophyllacticbreast resection and oophorectomy. She has been on retirement adjuvant therapy first with tamoxifen and supsequently Femara. She has been on Femara for 5+ years and is tolerating it well. She has no complaints or concerns or changes in her overall health. INTERIM SOCIAL/FAMILY HISTORY: No interval change. REVIEW OF SYSTEMS: Energy: stable Pain: no Appetite:good Fevers/chills/drenching sweats:No Bruising/bleeding/melena:No Recent infections:No HEENT: negative Nausea/vomiting/diarrhea/constipation:No Dysuria: No SOB/cough/chest pain:No Change in adenopathy or other masses:No Unexpected weight loss or gain:No Skin rashes or petechiae:No Musculoskeletal complaints:No Extremities: Negative upper and lower bilaterally Neurologic symptoms:No PHYSICAL EXAM: BP 151/81 Pulse 85 Temp(Src) 36.6 ??C (97.9 ??F) (Oral) Resp 18 Ht 1.757 m (5' 9.17) Wt 91.5 kg (201 lb 11.5 oz) BMI 29.64 kg/m2 SpO2 98% NAD, A & O x 3. HEENT: [...] clear, cognition intact, no focal neurologic deficit. Breasts: surgically absent, chest wall bilaterally without lesions. RADIOLOGY: DEXA 02/10/2011 - within normal range. LABORATORY: WBC 9.18, HG 11.9, PLT 264k, ANC 4.80, glu 77, bun 20, creat 0.7, AP 96, AST 25, ALT 36, Na 138, K 4.3. date CA 27.29 08/19/10 20.7 08/06/09 21.2 04/23/09 17.9 09/18/08 18.7 03/15/08 11.3 ASSESSMENT/PLAN: Breast cancer - RANDI. Continue Femara. She is informed that there are no completed studies to indicate benefit or not beyond 5 years of therapy, she would like to continue. RTC in 6 months, cbc, cmp, CA27.29. Vicky was reminded to call in the interim should questions or concerns arise. documented in this encounter Plan of Treatment Not on file documented as of this encounter Visit Diagnoses Diagnosis Breast cancer- Primary Malignant neoplasm of breast (female), unspecified site documented in this encounter Care Teams Coal Handler Relationship Specialty Start Date End Date Suzanne De Guzman MD [address] [place] [address] PCP - General 08/27/10 09/30/12 documented as of this encounter
--- OUTSIDE RECORDS SUMMARY | 2024-09-30 11:33 | XMS_ITS | Encounter Summary ---
Author Organization [facility] [place] [address] Care Team Providers Care Head Up Operator Name Role Phone Bobbi Blum MD Primary Care Provider [phone] Reason for Visit * Reason Comments Follow-up adenocarcinoma of br east Encounter Details Date Type Department Care Team (Late st Contact Info) Description 03/18/2013 10:00 AM EDT Follow-Up Hematology Oncology at [address] [phone] Jesu Post MD Adenocarcinoma of breast (Primary Dx); Osteoporosis Discharge Disposition: Home Social History Tobacco Use [...] Sign Reading Time Taken Comments Blood Pressure 140/76 03/18/2013 10:01 AM EDT Pulse 85 03/18/2013 10:01 AM EDT Temperature 36.7 ??C (98.1 ??F) 03/18/2013 10:01 AM E DT Respiratory Rate 16 03/18/2013 10:01 AM EDT Oxygen Saturation 98% 03/18/2013 10:01 AM EDT Inhaled Oxygen Concentration - - Weight 89 kg (196 lb 3.4 oz) 03/18/2013 10:01 AM EDT Height - - Body Mass Index 28.83 10/01/2012 10:55 AM EST documented in this encounter Progress Notes * Jesu Post MD - 03/18/2013 10:14 AM EDT Images from the original note were not included. Subjective: Patient ID: Ligia Lara is a 57 y.o. female. HPI Comments: Patient returns for [...] resection and oophorectomy. She has been on senior living adjuvant therapy first with tamoxifenand supsequently Femara. She has been on Femara for 5+ years and is tolerating it well. Her last DEXA 02/10/11 showed normal BMD. She is due for a repeat scan. She takes calcium and Vitamin D and is anavid walker. She has had no symptoms or [...] inhibitors following five years oftamoxifen Last f/u 03/18/13 continues on letrozole Strong family history of [...] and affect. Her behavior is normal. BP 140/76 Pulse 85 Temp(Src) 36.7 ??C (98.1 ??F) (Oral) Resp 16 Wt 89 kg (196 lb 3.4 oz) SpO2 98% LAB: 03/09/13 CBC WBC 7.6 ANC 3.7 H/H 11.4/34.2 Plat 234 CMP BS 83 Ca 9.1 BUN 16 Creat 0.8 Na 136 K 4.3 Cl 102 CO2 28 AST 28 ALT 26 AP 87 date CA 27.29 03/09/13 24.2 09/23/12 25.5 02/06/12 28.7 08/19/11 34.0 08/14/10 30.4 02/19/10 26.3 08/21/09 31.3 04/23/09 17.9 02/07/09 27.2 09/18/08 18.7 03/15/08 11.3 01/12/08 24.8 Assessment and Plan: Patient is doing well and remains free of evidence of recurrent disease of other significant new problems. Providing there are no interval problems she will return for f/u in 6 months with the usual lab studies. We discussed the present feelings about the duration of AI therapy and the lack of new data and she would like to continue letrozole. It has been 2 years since her last DEXA so we will schedule that. She will be in touch in the [...] mouth daily. ??? multivitamin (THERAGRAN) tablet ??? DISCONTD: lisinopril (PRINIVIL;ZESTRIL) 10 mg tablet Take 10 mg by mouth daily. ??? DISCONTD: CIS Free Text Med - Calcium + D Patient Active Problem List Diagnoses Code ??? Adenocarcinoma of breast 174.9 ??? Hypertension 401.9 PCP: Bobbi Blum MD Other Providers: Michael Nolasco MD documented in this encounter Procedure Notes * Provider, Scanning - 09/06/2013 2:17 PM ESTAssociated Order(s): SCAN DOC: LAB documented in this encounter Plan of Treatment Not on file documented as of this encounter Procedures Procedure Name Priority Date/Time Associated Diagnosis Comments LAB SCAN 09/06/2013 2:17 PM EST documented in this encounter Results * SCAN DOC: LAB (09/06/2013 2:17 PM EST) Narrative 09/06/2013 2:17 PM EST Procedure Note Provider, Scanning - 09/06/2013 2:17 PM EST Scanning Provider MEDIA MGR SCAN EXT O RDR/RSLT documented in this encounter Visit Diagnoses Diagnosis Adenocarcinoma of breast- Primary Malignant neoplasm of breast (female), unspecified site Osteoporosis Osteoporosis, unspecified documented in this encounter Care Teams Head Up Operator Relationship Specialty Start Date End Date Bobbi Blum MD HOSPITALIST SERVICES [address] [place] [address] [place] [address] PCP - General 10/01/12 08/15/13 documented as of this encounter
--- OUTSIDE RECORDS SUMMARY | 2024-09-30 11:33 | XMS_ITS | Encounter Summary ---
[place] [address] Care Team Providers Care Computer Console Operator Name Role Phone Bobbi Blum MD Primary Care Provider [phone] Encounter Details Date Type Department Care Team (Late st Contact Info) Description 02/10/2011 Orders Only [place] [address] Jesu Post MD Social History Tobacco Use Types Packs/Day Years Used Date Smoking Tobacco: Never Assessed Sex and Gender Information Value Date Recorded Sex Assigned at Not on file Gender Identity Not on file Sexual Orientation Not on file documented as of this encounter Plan of Treatment Not on file documented as of this encounter Procedures Procedure Name Priority Date/Time Associated Diagnosis Comments FILM LIBRARY- STORAGE ONLY DXA IMAGES Routine 02/10/2011 7:40 AM EDT documented in this encounter Results * Film Library- storage only dexa images (02/10/2011 7:40 AM EDT) 02/10/2011 7:40 AM EDT Narrative RAD - 05/29/2014 11:07 PM EDT This is a non-reportable exam. Procedure Note Femi Hebert - 05/29/2014 This is a non-reportable exam. Jesu Post MD IMG FILM LIBRARY ORD ERABLES [facility] [address] [facility] [place] [address] documented in this encounter Visit Diagnoses Not on filedocumented in this encounter Care Teams Computer Console Operator Relationship Specialty Start Date End Date Bobbi Blum MD HOSPITALIST SERVICES [address] [place] [address] [place] [address] PCP - General 10/01/12 08/15/13 documented as of this encounter
--- OUTSIDE RECORDS SUMMARY | 2024-09-30 11:33 | XMS_ITS | Encounter Summary ---
Author Organization [facility] [place] [address] Care Team Providers Care Heavy Equipment Rental Associate Name Role Phone Suzanne De Guzman MD Primary Care Provider [phone] Reason for Visit * Reason Comments Breast Cancer follow up 6 months Encounter Details Date Type Department Care Team (Late st Contact Info) Description 08/20/2011 10:00 AM EST Follow-Up Hematology Oncology at [address] [phone] Jesu Post MD Adenocarcinoma of breast (Primary Dx) Discharge Disposition: [...] Sign Reading Time Taken Comments Blood Pressure 160/77 08/20/2011 10:08 AM EST Pulse 88 08/20/2011 10:08 AM EST Temperature 36.3 ??C (97.3 ??F) 08/20/2011 10:[address] Respiratory Rate 18 08/20/2011 10:08 AM EST Oxygen Saturation 100% 08/20/2011 10:08 AM EST Inhaled Oxygen Concentration - - Weight 92 kg (202 lb 13.2 oz) 08/20/2011 10:08 A M EST Height 176 cm (5' 9.29) 08/20/2011 10:08 AM EST Body Mass Index 29.7 08/20/2011 10:08 AM EST documented in this encounter Progress Notes * Maria M Borrero RN - 08/20/2011 3:59 PM ESTAddended by: MARIA M BORRERO on: 08/20/2011 Modules accepted: Orders * Jesu Post MD - 08/20/2011 10:42 AM EST Images from the original note were not included. Subjective: Patient ID: Ligia Lara is a 55 y.o. female. HPI Comments: Patient returns for f/u now more than 10 years from diagnosis and treatment for a carcinoma of the breast presenting when she was 43 years old. She has a sister who developed breast cancer at the age of 28 during . Following adjuvant chemotherapy she underwent prophyllactic breast resection and oophorectomy. She has been on residential adjuvant therapy first with tamoxifen and supsequently Femara. She has been on Femara for 5+ years and is tolerating it well. Her last DEXA 02/10/11 showed normal BMD. She takes calcium and Vitamin [...] sounds are normal. She exhibits no distension. No tenderness. Musculoskeletal: Normal range of motion. She [...] and affect. Her behavior is normal. BP 160/77 Pulse 88 Temp(Src) 36.3 ??C (97.3 ??F) (Oral) Resp 18 Ht 176 cm (5' 9.29) Wt 92 kg (202 lb 13.2 oz) BMI 29.70 kg/m2 SpO2 100% LAB: 08/19/11 CBC WBC 6.9 ANC 3.5 H/H 12.3/36.0 Plat 255 CMP BS 117 Ca 9.2 BUN 23 Creat 0.9 Na 136 K 4.4 Cl 103 CO2 24 AST 24 ALT 29 AP 95 date CA 27.29 08/19/11 34.0 08/14/10 30.4 02/19/10 26.3 08/21/09 31.3 04/23/09 17.9 02/07/09 27.2 09/18/08 18.7 03/15/08 11.3 01/12/08 24.8 Assessment and Plan: Patient is doing well and remains free of evidence of recurrent disease of other new problems. Providing there are no interval problems she will return for f/u in 6 months with the usual lab studies.She wants to continue letrozole. She will be in touch in the interim if there are problems or questions. Current outpatient prescriptions ordered prior to encounter Medication Sig Dispense Refill ??? venlafaxine (EFFEXOR-XR) 37.5 mg 24 hr capsule Take 37.5 mg by mouth daily. ??? CIS Free Text Med - Calcium + D ??? letrozole (FEMARA) 2.5 mg tablet 2.5 MG, PO, Once daily ??? multivitamin (THERAGRAN) tablet Patient Active Problem List Diagnoses Code ??? Adenocarcinoma of breast 174.9BD ??? Blood pressure alteration - Labile 796.4R PCP: SUZANNE DE GUZMAN MD Other Providers: Michael Nolasco MD documented in this encounter Procedure Notes * Provider, Scanning - 02/09/2012 3:34 PM EDTAssociated Order(s): SCAN DOC: LAB documented in this encounter Plan of Treatment Not on file documented as of this encounter Procedures Procedure Name Priority Date/Time Associated Diagnosis Comments LAB SCAN 02/09/2012 3:34 PM EDT documented in this encounter Results * SCAN DOC: LAB (02/09/2012 3:34 PM EDT) Narrative 02/09/2012 3:34 PM EDT Procedure Note Provider, Scanning - 02/09/2012 3:34 PM EDT Scanning Provider MEDIA MGR SCAN EXT O RDR/RSLT documented in this encounter Visit Diagnoses Diagnosis Adenocarcinoma of breast- Primary Malignant neoplasm of breast (female), unspecified site documented in this encounter Care Teams Heavy Equipment Rental Associate Relationship Specialty Start Date End Date Suzanne De Guzman MD [address] [place] [address] PCP - General 08/27/10 09/30/12 documented as of this encounter
--- OUTSIDE RECORDS SUMMARY | 2024-09-30 11:33 | XMS_ITS | Encounter Summary ---
[place] [address] Care Team Providers Care Cable Maker Name Role Phone Bobbi Blum MD Primary Care Provider [phone] Encounter Details Date Type Department Care Team (Late st Contact Info) Description 03/29/2013 Orders Only Hematology [place] [address] Jesu Post MD Social History Tobacco Use [...] FILM LIBRARY- STORAGE ONLY DXA IMAGES Routine 03/29/2013 7:38 AM EDT documented in this encounter Results * Film Library- storage only dexa images (03/29/2013 7:38 AM EDT) 03/29/2013 7:38 AM EDT Narrative GOLDIE - 05/29/2014 11:07 PM EDT This is a non-reportable exam. Procedure Note Femi Hebert - 05/29/2014 This is a non-reportable exam. Jesu Post MD G FILM LIBRARY ORD ERABLES [facility] [address] [place] [address] documented in this encounter Visit Diagnoses Not on filedocumented in this encounter Care Teams Cable Maker Relationship Specialty Start Date End Date Bobbi Blum MD HOSPITALIST SERVICES [address] [place] [address] [place] [address] PCP - General 10/01/12 08/15/13 documented as of this encounter
--- OUTSIDE RECORDS SUMMARY | 2024-09-30 11:33 | XMS_ITS | Encounter Summary ---
Author Organization [facility] Address [facility] [place] [address] Care Team Providers Care Associate Agent Insurance Sales Name Role Phone Suzanne De Guzman MD Primary Care Provider [phone] Reason for Visit * Reason Comments Genetic Evaluation BRCA1/2 genetic test ing, specifically JHONY BRACAnalysis Family History breast and other can cers Encounter Details Date Type Department Care Team (Late st Contact Info) Description 03/25/2011 3:30 PM EDT Follow-Up Hematology Oncology at [address] [phone] Arnold Pichardo MD [facility] [place] [address] Personal history of malignant neoplasm of breast; Family history of malignant neoplasm of breast Discharge Disposition: Home Social History Tobacco Use Types Packs/Day Years Used Date Smoking Tobacco: Former Cigarettes Q uit: 02/26/1990 Sex and Gender Information Value Date Recorded Sex Assigned at Not on file Gender Identity Not on file Sexual Orientation Not on file documented as of this encounter Progress Notes * Arnold Pichardo MD - 03/26/2011 3:10 PM EDT Ms. Lara was seen by Sondra Bruner MS, [facility] and myself to advise regarding possible heritable predisposition to cancer. Reason for referral/Chief complaint Personal history of breast cancer and family history of breast and other cancers. Medical history Cancer hx and treatment: Ligia was diagnosed with breast cancer at ager 43. At that time, she underwent a mastectomy followed by chemotherapy and five-year course of Tamoxifen. At age 43, Ligia underwent contralateral prophylactic mastectomy. Age at 1st menses: 14 or 15 Age at 1st child: 23 Menopause status: Postmenopausal. Post JOHN with BSO at age 49. Oral contraceptive use: N/A Hormone replacement therapy use: N/A Current cancer screening: Periodic oncological follow-up. Family History Problem Relation Age of Onset ??? Prostate Cancer Father 65 ??? Breast Cancer Sister 28 ??? Lung Cancer Maternal Aunt 72 smoker ??? Breast Cancer Paternal Aunt 74 ??? Colon Cancer Paternal Aunt 65 ??? Skin Cancer Paternal Grandmother 72 melanoma ??? Lung Cancer Paternal Grandfather 41 smoker ??? Cancer Nephew 19 Non-Hodgkin's lymphoma ??? Lung Cancer Sister 44 smoker ??? Breast Cancer Maternal Aunt 55 ??? Breast Cancer Maternal Aunt 65 DCIS ??? Colon Cancer Maternal Aunt 77 ??? Breast Cancer Maternal 1st Cousin 45 BRCA1/2 negative Maternal ethnic background is [place]. Paternal ethnic background is [place]. Genetic risk assessment Based on personal and/or family history, Ligia's risk of being a BRCA1/2 carrier continues to be significant. Ligia underwent BRCA1 and 2 sequencing in 2005 which was normal. Additional BRCA1 and 2 testing, specifically JHONY BRACAnalysis, has become available since then. This test looks for different types of alterations, deletions, duplications and rearrangements, not picked up by sequencing. Therefore, JHONY genetic testing is recommended. Ligia opted for testing and was consented. Testing will take approximately 2-3 weeks. Ligia scheduled her test result disclosure appointment for April 29, 2011 at 3:30PM at [facility] in [facility]. documented in this encounter Plan of Treatment Not on file documented as of this encounter Visit Diagnoses Diagnosis Personal history of malignant neoplasm of breast Family history of malignant neoplasm of breast documented in this encounter Care Teams Associate Agent Insurance Sales Relationship Specialty Start Date End Date Suzanne De Guzman MD [address] [place] [address] PCP - General 08/27/10 09/30/12 documented as of this encounter
--- OUTSIDE RECORDS SUMMARY | 2024-09-30 11:33 | XMS_ITS | Encounter Summary ---
[place] [address] Care Team Providers Care Bankruptcy Legal Assistant Name Role Phone Bobbi Blum MD Primary Care Provider [phone] Reason for Visit * Reason Comments Skin Check Encounter Details Date Type Department Care Team (Late st Contact Info) Description 03/22/2013 3:45 PM EDT Office Visit Dermatology [address] [facility] [address] [place], [place] [id number] Willie Field MD [address] [place] [address] RD, [place] [address] Psoriasiform dermatitis (Primary Dx) Social History Tobacco [...] Progress Notes * Willie Field MD - 03/22/2013 5:45 PM EDT Problem is hand dermatitis. Ligia follows up after last seeing me in 2004. She has a history of BCCA removed in 2002. However, for the last few weeks her problem has been a burning somewhat uncomfortable rash on the palmar hands bilaterally. It has not involved her feet nor her skin elsewhere. This seemed to start after a switch from lisinopril to losartan. Her blood pressures tend to run in the 140 to 150 over 90 range, and the patient is followed by Dr. Bobbi Blum. The patient is a breast cancer survivor, is now 14 years out and doing well. She is on Femara, venlafaxine, and two or three weeks ago was started on Singulair and losartan and her lisinopril was DC'd. She also takes a multivitamin and calcium and vitamin D supplementation. There is no family history of psoriasis that she is aware of. 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 There has been no change in her workplace exposures. There has been no change in her soaps, etc., or home skincare products. Physical examination reveals a pleasant 57-year-old woman who has erythema and hyperkeratosis with overlying scaling of the palmar hands bilaterally ending at the wrists, sparing the dorsal hands entirely. She has some calluses of her feet but no erythema and no dermatitis there today. She has no lesions on the elbows or the knees. No stigmata of psoriasis. Assessment and Plan: Psoriasiform hand dermatitis. a. Losartan, an angiotensin II receptor antagonist, has been known to induce psoriasiform dermatitis. b. This may have been initially in the works with her lisinopril but certainly became clinically manifested while she was on the losartan. c. Would recommend to Dr. Blum that the losartan be held and a non-angiotensin receptor antagonist be considered for blood pressure control. d. In the meantime, for quicker symptomatic relief she was given a prescription for clobetasol cream to apply b.i.d. to the hands and at night the second application will be under cotton glove occlusion. 50 grams dispensed with two refills. e. Patient will return here if she is not seeing significant improvement after cessation of the losartan within a week or two. COPY: Bobbi Blum M.D. documented in this encounter Procedure Notes * Provider, Scanning - 03/29/2013 12:17 PM EDTAssociated Order(s): SCAN DOC: DIAGNOSTIC RADIOLOGY documented in this encounter Plan of Treatment Not on file documented as of this encounter Procedures Procedure Name Priority Date/Time Associated Diagnosis Comments DIAGNOSTIC RADIOLOGY SCAN 03/29/2013 12:17 PM EDT documented in this encounter Results * SCAN DOC: DIAGNOSTIC RADIOLOGY (03/29/2013 12:17 PM EDT) Anatomical Region Laterality Modality Other Narrative 03/29/2013 1:55 PM EDT Procedure Note Provider, Scanning - 03/29/2013 12:17 PM EDT Scanning Provider MEDIA MGR SCAN EXT O RDR/RSLT documented in this encounter Visit Diagnoses Diagnosis Psoriasiform dermatitis- Primary Other psoriasis and similar disorders documented in this encounter Care Teams Bankruptcy Legal Assistant Relationship Specialty Start Date End Date Bobbi Blum MD HOSPITALIST SERVICES [address] [place] [address] [place] [address] PCP - General 10/01/12 08/15/13 documented as of this encounter
--- OUTSIDE RECORDS SUMMARY | 2024-09-30 11:33 | XMS_ITS | Encounter Summary ---
Author Organization [facility] [address] Care Team Providers Care Fiberglass Ski Maker Name Role Phone Bobbi Blum MD Primary Care Provider [phone] Reason for Visit * Reason Comments Follow-up adenocarcinoma of br east Encounter Details Date Type Department Care Team (Late st Contact Info) Description 10/01/2012 11:00 AM EST Follow-Up Hematology Oncology at [address] [address] Jesu Post MD Adenocarcinoma of [...] Sign Reading Time Taken Comments Blood Pressure 156/87 10/01/2012 10:55 AM EST Pulse 78 10/01/2012 10:55 AM EST Temperature 36.8 ??C (98.2 ??F) 10/01/2012 10:[address] Respiratory Rate 18 10/01/2012 10:55 AM EST Oxygen Saturation 98% 10/01/2012 10:55 AM EST Inhaled Oxygen Concentration - - Weight 88.9 kg (196 lb) 10/01/2012 10:55 AM EST Height 175.7 cm (5' 9.17) 10/01/2012 10:[address] Body Mass Index 28.8 10/01/2012 10:55 AM EST documented in this encounter Progress Notes * Jesu Post MD - 10/01/2012 11:07 AM EST Subjective: Patient ID: Ligia Lara is a 57 y.o. female. HPI Comments: Patient returns for f/u now more than 12 years from diagnosis and treatment for a carcinoma of the breast presenting when she was 43 years old. She has a sister who developed breast cancer at the age of 28 during . Following adjuvant chemotherapy she underwent prophyllactic breast resection and oophorectomy. She has been on rat exterminator adjuvant therapy first with tamoxifen and supsequently Femara. She has been on Femara for 5+ years and is tolerating it well. Her last DEXA 02/10/11 showed normal BMD. She takes calcium and Vitamin D and is an avid walker. In the interval since her last visit she has been diagnosed with hypertension and started medication. She has had no symptoms or problems [...] inhibitors following five years oftamoxifen Last f/u 10/01/12 continues on letrozole Strong family history of [...] and affect. Her behavior is normal. BP 156/87 Pulse 78 Temp(Src) 36.8 ??C (98.2 ??F) (Oral) Resp 18 Ht 175.7 cm (5' 9.17) Wt88.905 kg (196 lb) BMI 28.80 kg/m2 SpO2 98% LAB: 09/23/12 CBC WBC 6.5 ANC 3.0 H/H 11.3/34.3 Plat 232 CMP BS 116 Ca 8.6 BUN 19 Creat 0.8 Na 137 K 4.8 Cl 104 CO2 24 AST 23 ALT 24 AP 84 date CA 27.29 09/23/12 25.5 02/06/12 28.7 08/19/11 34.0 08/14/10 30.4 02/19/10 26.3 08/21/09 31.3 04/23/09 17.9 02/07/09 27.2 09/18/08 18.7 03/15/08 11.3 01/12/08 24.8 Assessment and Plan: Patient is doing well and remains free of evidence of recurrent disease of other significant new problems. Providing there are no interval problems she will return for f/u in 6 months with the usual lab studies. She wants to continue letrozole. It has been 18 months since her last DEXA so she will be due when she returns but she would prefer not to schedule it now but rather after her appointment. She will be in touch in the interim if there are problems or questions. Current Outpatient Prescriptions on File Prior to Visit Medication Sig Dispense Refill ??? CALCIUM CARBONATE/VITAMIN D3 (CALCIUM WITH VITAMIN D ORAL) Take by mouth 2 times daily. ??? letrozole (FEMARA) 2.5 mg tablet Take 1 tablet by mouth daily. 90 tablet 3 ??? venlafaxine (EFFEXOR-XR) 37.5 mg 24 hr capsule Take 37.5 mg by mouth daily. ??? CIS Free Text Med - Calcium + D ??? multivitamin (THERAGRAN) tablet Patient Active Problem List Diagnoses Code ??? Adenocarcinoma of breast 174.9 ??? Blood pressure alteration - Labile 796.4 PCP: Bobbi Blum MD Other Providers: Michael Nolasco MD documented in this encounter Plan of Treatment Not on file documented as of this encounter Visit Diagnoses Diagnosis Adenocarcinoma of breast- Primary Malignant neoplasm of breast (female), unspecified site documented in this encounter Care Teams Fiberglass Ski Maker Relationship Specialty Start Date End Date Bobbi Blum MD HOSPITALIST SERVICES [address] [place] [address] [place] [address] PCP - General 10/01/12 08/15/13 documented as of this encounter
--- OUTSIDE RECORDS SUMMARY | 2024-09-30 11:33 | XMS_ITS | Encounter Summary ---
Author Organization [facility] [place] [address] Care Team Providers Care Painter Maintenance Name Role Phone Bobbi Blum MD Primary Care Provider [phone] Reason for Visit * Reason Comments Follow-up Genetic testing Encounter Details Date Type Department Care Team ([facility] Contact Info) Description 02/16/2013 8:30 AM EDT Follow-Up Hematology [place] [id number] John Wilson MD Adenocarcinoma of breast (Primary Dx); Family history of breast cancer Discharge Disposition: Home Social History Tobacco [...] as of this encounter Progress Notes * John iWlson MD - 02/22/2013 8:00 PM EDT On February 16, 2013, we readdressed the option of additional genetic testing for BRCA1 and BRCA2, specifically the BRACAnalysis Rearrangement Test (JHONY), including review of the risks, benefits, and limitations of currently available techniques. Understanding the possible outcomes and their limitations, Ligia decided to pursue testing. Ligia's blood was drawn and sent to [facility] for JHONY BRACAnalysis. Subsequently, we formulated a plan in regards to Ligia's test result disclosure. Nalini Fuller, our program administrative secretary, will contact Ligia in the near future in order to schedule a convenient date and time for a test result disclosure appointment. Testing will take approximately 2-3 weeks. Ligia will not be given her test result over the telephone. At the disclosure appointment, Ligia will be provided with her test result in person. At that time, we will discuss with Ligia the implications that this test result may have for her, as well as her family members. We will also provide Ligia withscreening guidelines for cancer prevention and early detection, as well as answer any questions shemay have. documented in this encounter Procedure Notes * Provider, Scanning - 03/11/2013 1:33 PM EDTAssociated Order(s): SCAN DOC: LAB documented in this encounter Plan of Treatment Scheduled Orders Name Type Priority Associated Diagnoses Orde r Schedule Miscellaneous Lab request Lab Routine Adenocarcinoma of breast Family history of breast cancer Expected: 02/16/2013, Expires: 02/16/2014 documented as of this encounter Procedures Procedure Name Priority Date/Time Associated Diagnosis Comments LAB SCAN 03/11/2013 1:33 PM EDT documented in this encounter Results * SCAN DOC: LAB (03/11/2013 1:33 PM EDT) Narrative 03/11/2013 1:33 PM EDT Procedure Note Provider, Scanning - 03/11/2013 1:33 PM EDT Scanning Provider MEDIA MGR SCAN EXT O RDR/RSLT documented in this encounter Visit Diagnoses Diagnosis Adenocarcinoma of breast- Primary Malignant neoplasm of breast (female), unspecified site Family history of breast cancer Family history of malignant neoplasm of breast documented in this encounter Care Teams Painter Maintenance Relationship Specialty Start Date End Date Bobbi Blum MD HOSPITALIST SERVICES [address] [place] [address] [place] [address] PCP - General 10/01/12 08/15/13 documented as of this encounter
[2024-09-30 16:00] LABS: ALT 19 U/L (14-59); AST 27 U/L (15-37); Alkaline Phosphatase 86 U/L (46-116); Anion Gap 8.7 mmol/L (3-11); BUN 24 mg/dL (7-18); Bilirubin, Total 0.35 mg/dL (0.2-1.0); CO2 26.3 mmol/L (21.0-32.0); CREATININE 0.7 mg/dL (0.55-1.02); Calcium 9.2 mg/dL (8.5-10.1); Calculated LDL 86 mg/dL (<100); Chloride 105 mmol/L (98-107); Cholesterol 161 mg/dL (<200); Estimated GFR 94.15 (mL/min/1.73m2); Glucose 91 mg/dL (74-106); HDL Cholesterol 66 mg/dL (40-60); Potassium 4.9 mmol/L (3.5-5.1); Sodium 140 mmol/L (136-145); Total Protein 7.3 g/dL (6.4-8.2); Triglyceride 46 mg/dL (<150)
== END 2024-09-30 11:30 | disposition home or self-care (01) ==
LOC: NCHCN 11:29
PROVIDERS: PCP Family Medicine; Visit Provider Family Medicine
DX: Z00.00 Encounter for general adult medical examination without abnormal findings (principal)
CPT/HCPCS: 80053; 80061

== ENCOUNTER 2024-11-04 13:50 | Outpatient (REF) | payer OTHER, SELFPAY ==
--- NOTE | 2024-11-04 09:00 | SKI_PTH ---
PATIENT: Ligia Lara LOC: [facility] U#:[id number] AGE/SX: 69/F ROOM: RE11/04/[address]: Suzanne De Guzman V : 1955 BED: DIS: 11/04/2024 SPEC #: [id number] RECD: 11/07/24 12:45 STATUS: MADISON MARLOW #: [id number] LOGAN: 11/04/24 09:[address]: Suzanne De Guzman V DEPT: Surgical Specimen RECD BY: Kiana Garvin Tissues: 1 - SKIN BIOPSY(SHAVE/PUNCH) Procedures: SKIN LEVEL 4 Comments: [id number]
--- OUTSIDE RECORDS SUMMARY | 2024-11-04 13:52 | XMS_ITS | Encounter Summary ---
[place] [address] Care Team Providers Care Packing Machine Feeder Name Role Phone Suzanne De Guzman MD Primary Care Provider [phone] Encounter Details Date Type Department Care Team (Late st Contact Info) Description 04/10/2022 Orders Only Hematology [place] [address] [facility] [address] History of breast cancer; Family history of [...] Venipuncture (04/10/2022 10:55 AM EDT) Research Venipuncture [facility] Blood 04/10/2022 10:5 5 AM EDT 04/10/2022 11:01 AM EDT Narrative Resulting Agency Comment Spec In Lab Raul Mckenzie MD CHEMISTRY ORDERABLES [facility] [place] [address] documented in this encounter Visit Diagnoses Diagnosis History of breast cancer Personal history of malignant neoplasm of breast Family history of malignant neoplasm of breast Family history of malignant neoplasm of prostate Family history of colon cancer Family history of malignant neoplasm of gastrointestinal tract documented in this encounter Care Teams Packing Machine Feeder Relationship Specialty Start Date End Date Suzanne De Guzman MD [address] [place] [address] PCP - General 08/16/13 documented as of this encounter
--- OUTSIDE RECORDS SUMMARY | 2024-11-04 13:52 | XMS_ITS | Continuity of Care Document ---
Author Organization [facility] Ambulatory Clinics Address [address] [place] [address] Encounter [facility] NBR [id number] Date(s): 10/18/24 - 10/18/24 [facility] Ambulatory Clinics [address], [place] [address] Encounter Diagnosis Hair abnormality(Discharge Diagnosis) - 10/18/24 Discharge Disposition: Home or Self Care Attending Physician: Nikita Dawn DO Encounter Type: Clinic Assessment and Plan Future Appointments Plastic surgery Consult note * Event Display: Plastic Surgery Consultation Physician Outpatient Note * Nikita Dawn, DO: PERFORM Nikita Dawn, DO: PERFORM, MODIFY Nikita Dawn DO: MODIFY Event Display: Office Clinic Note Physician Authored Date: [id number] SHALONDA PATEL :1955 Age:69 years Sex:Female Visit Date:10/18/2024 Chief Complaint new patient - laser hair removal consult History of Present Illness New patient in the office today would like to discuss laser treatment for hair removal. Patient is looking for treatment on the lower lip area to the chin. Patient has never had laser performed before, she does get the area of the hair growth waxed about every five weeks, her last time was almost three weeks ago. ??She has done years of electrolysis,??waxing, she is very frustrated, she may also be interested in??sunspot treatment Review of Systems Negative for: no new cardiac, respiratory, GI, , hematologic, neurologic, psychological, allergic, traumatic or endocrine problems except as listed above Physical Exam GENERAL APPEARANCE:??The patient is awake, alert, and oriented and in no acute distress, Appears nutritionally sound, Healthy in appearance, Voice is strong, with no stridor or stertor, Handling secretions without difficulty.?PSYCH:??affect normal, good eye contact, oriented to person, oriented to place, oriented to time.?NEURO:??CN's II-XII grossly intact, Gait is normal, The patient has endpoint nystagmus only.?HEENT:??The patient is normocephalic with a normal facies with cranial nerves 2 through 12 bilaterally equal and intact. Pupils are equal and reactive to light with extraocular movements bilaterally equal and intact. There is no proptosis or enophthalmos, ?NECK:??There is no palpable lymphadenopathy.?SKIN:??normal across the head and neck.?MUSCULOSKELETAL:??normal gait and station.?? Procedure ??PFP Laser??After discussing the treatment options along with the risks and complications including but not limited to purpura, hypopigmentation, hyperpigmentation, scarring, man and blisters, herpes simplex virus activation, itching, consent was obtained and placed on the chart. The patient hasagreed to the above procedure and understands the risks and benefits. The skin was wiped with rubbing alcohol and allowed to dry. The Gentle Max laser as was used for the laser cosmetic treatment, the patient tolerated the procedure well. Sun block was applied and postop instructions were reviewed with strict emphasis on sun exposure avoidance with sunblock at all times. The patient was discharged in stable condition was understanding of all their post procedure instructions..?? Dawn Class??..?2 Laser??..?Alexandrite Treatment Site??..?Lip, chin and spot treatment of the neck hair removal Treatment Area??..?? Laser Settings??..?Alexandrite, 12 mm,??26 J, 3 ms, 2 Hz, 40/20 cooling Post Op??No evidence of excessive erythema or scarring or blistering post procedure, Kale-vera was applied, postoperative instructions were reviewed and provided. The patient tolerated the procedure well. Female urology physician assistant present for entire treatment process.. Medical Decision Making Patient may want to add sunspots next time this would be an additional $200 Images laser $300 Problem List/Past Medical History Ongoing No qualifying data Historical No qualifying data Allergies No active allergies Electronically Signed on 10/18/2024 09:22 EST Nikita Dawn, Insurance Providers Guarantor name: [employer] Health Plan Information #: 2 Payer: SELF PAY Member Number: SARITA Policy Number: SARITA Group Number: [id number]
--- OUTSIDE RECORDS SUMMARY | 2024-11-04 13:52 | XMS_ITS | Encounter Summary ---
Author Organization [facility] [place] [address] Care Team Providers Care Frothing Machine Operator Name Role Phone Suzanne De Guzman MD Primary Care Provider [phone] Reason for Visit * Reason Comments Genetic Evaluation * Consultation (Routine) - Closed Specialty Diagnoses / Procedures Referred By Contduc t Referred To Contact Hematology and Oncology Diagnoses Personal history of malignant neoplasm of breast Suzanne De Guzman MD [address] [place] [address] [facility] [address] [place] [address] Referral ID Status Reason Start Date Expiration Date V isits Requested Visits Authorized [id number] Closed Consult, Test & Treat [facility] PCP Updated and/or Approved 07/16/2021 07/16/2022 6 6 Encounter Details Date Type Department Care Team (Late st Contact Info) Description 04/10/2022 10:00 AM EDT Office Visit Hematology [place] [phone] Gino Perez V [facility] Hematology/[place] [address] History of breast cancer; Family history of [...] 2nd breast primary Maternal ethnic background is Maori, Taj[place]. Paternal ethnic background is Maori. There is no known Ashkenazi Gnosticist ancestry. Genetic risk assessment Based on personal [...] at [email or web address]. Ligia opted for testing with [facility]' CancerNext-Expanded +RNAinsight Panel, a next generation sequencing panel that simultaneously analyzes 77 genes, including BRCA1, BRCA2, PALB2, CHEK2, MANJULA, and TP53, that contribute to increased risk for cancer. Ligia was consented. Her blood sample was drawn and sent to [facility]. We reviewed [employer]'s billing policy. Ligia will be notified by text and/or email once Isaias completes their benefits investigation if her estimated out of pocket cost is over $100. At that time, if Ligia is concerned about the estimated test cost she will have the option to contact [employer] directly and either apply for [facility]'s patient assistance program to try [...] neoplasm documented in this encounter Care Teams Frothing Machine Operator Relationship Specialty Start Date End Date Suzanne De Guzman MD [address] [place] [address] PCP - General 08/16/13 documented as of this encounter
--- OUTSIDE RECORDS SUMMARY | 2024-11-04 13:52 | XMS_ITS | Encounter Summary ---
Author Organization [facility] Address [address] [place] [address] Care Team Providers Care Software Tools Engineer Name Role Phone Unknown, Provider Primary Care Provider Inessa ilable Encounter Details Date Type Department Care Team (Late st Contact Info) Description 01/06/2011 Results Only [facility] Laboratory Services - [facility] ([facility] [address], [place] [address] Lon Mckeon MD [address] [place], [place] [id number] Social History Tobacco Use Types Packs/Day Years [...] ? JORGE, LIGIA ? Accession #: ? [id number] ? : ? 1955 (Age: 55) ??F ? Collect Date: ? 01/06/2011 ? Location: ? [facility] ? Receive Date: ? 01/07/2011 ? Provider: LON WALKO MD ? Copy to: TAHMINA BERRIAN MD ? Final Pathologic Diagnosis: ? A. ?Skin of islam, right, shave biopsy: ? 1. ?Actinic keratosis. [...] diagnosis. ? Specimen(s) Received: ? A. ?Right islam shave biopsy ? B. ? Right back [...] Final Resul t [facility] [address] [place] [address] documented in this encounter Visit Diagnoses Not on filedocumented in this encounter Care Teams Software Tools Engineer Relationship Specialty Start Date End Date Unknown, Provider, PCP - General 05/03/09 documented as of this encounter
--- OUTSIDE RECORDS SUMMARY | 2024-11-04 13:52 | XMS_ITS | Encounter Summary ---
Author Organization [facility] Address [address] [place] [address] Care Team Providers Care Rand Cementer Name Role Phone Unknown, Provider Primary Care Provider Unava ilable Encounter Details Date Type Department Care Team (Late st Contact Info) Description 12/17/2000 Results Only [facility] [address] [place] [address] Nikolas Chávez MD [address] [facility] [address] [place] [address] Social History Tobacco Use Types [...] ? LIGIA PATEL ? Accession #: ? [id number] : ? 1955 (Age: 45) ??F ?Collect [...] Final Resu lt [facility] [address] [place] [address] documented in this encounter Visit Diagnoses Not on filedocumented in this encounter Care Teams Rand Cementer Relationship Specialty Start Date End Date Unknown, Provider, PCP - General 05/03/09 documented as of this encounter
--- OUTSIDE RECORDS SUMMARY | 2024-11-04 13:52 | XMS_ITS | Encounter Summary ---
Author Organization [facility] Address [address] [place] [address] Care Team Providers Care Swing Manager Name Role Phone Unknown, Provider Primary Care Provider Unava ilable Encounter Details Date Type Department Care Team (Late st Contact Info) Description 01/31/2008 Results Only [facility] conversion [address] [place] [address] Nikolas Chávez MD [address] [facility] [address] [place] [address] Social History Tobacco Use Types [...] ? LIGIA PATEL ? Accession #: ? [id number] : ? 1955 (Age: 52) ??F ?Collect Date: ? 01/31/2008 Location: ? [facility] ? Receive Date: ? 02/01/2008 Provider: ?NIKOLAS CHÁVEZ MD Copy to: ? Specimen/Source: ?ThinPrep Pap Test, Cervix/Endocervix, processed on [employer] ThinPrep Imaging System, with manual evaluation Last [...] ORDERABLES Final Resu lt [facility] [address] [place] [address] documented in this encounter Visit Diagnoses Not on filedocumented in this encounter Care Teams Swing Manager Relationship Specialty Start Date End Date Unknown, Provider, PCP - General 05/03/09 documented as of this encounter
--- OUTSIDE RECORDS SUMMARY | 2024-11-04 13:52 | XMS_ITS | Encounter Summary ---
[place] [address] Care Team Providers Care Contract Engineer Name Role Phone Suzanne De Guzman MD Primary Care Provider [phone] Encounter Details Date Type Department Care Team (Latest Contact Info) Description 04/10/2022 10:48 AM EDT - 04/10/2022 11:59 PM EDT Hospital Encounter Hematology [place] [phone] History of breast cancer; Family history of [...] (04/10/2022 10:55 AM EDT) Research Venipuncture [facility] Blood 04/10/2022 10:5 5 AM EDT 04/10/2022 11:01 AM EDT Narrative Resulting Agency Comment Spec In Lab Raul Mckenzie [place] [address] documented in this encounter Visit Diagnoses Diagnosis History of breast cancer Personal history of malignant neoplasm of breast Family history of malignant neoplasm of breast Family history of malignant neoplasm of prostate Family history of colon cancer Family history of malignant neoplasm of gastrointestinal tract documented in this encounter Care Teams Contract Engineer Relationship Specialty Start Date End Date Suzanne De Guzman MD [address] [place] [address] PCP - General 08/16/13 documented as of this encounter
--- OUTSIDE RECORDS SUMMARY | 2024-11-04 13:52 | XMS_ITS | Encounter Summary ---
[facility] [place] [address] Care Team Providers Care Filing Machine Operator Name Role Phone Suzanne De Guzman MD Primary Care Provider [phone] Reason for Visit * Reason Onset Date Comments Results 05/01/2022 Encounter Details Date Type Department Care Team (Late st Contact Info) Description 05/01/2022 Telephone Hematology [place] [id number] Gino Perez V [facility] Dr Hematology/[place] [address] Results Social History Tobacco Use Types Packs/Day [...] * Telephone Encounter - Gino Perez V [facility] - 05/01/2022 10:51 AM EDT This test result was discussed with the patient by phone. A copy of the test results have been scanned in the medical record and sent to Ligia. A summary of the results is provided below. Please be advised that [place] law requires that all health care workers respect the confidentiality of this information and not pass it along to other health care providers, insurance companies, or individuals without the written permission of the patient. The [facility] welcomes any questions about these matters. Our phone number is: [phone]. On 04/10/2022 Ligia was seen for genetic counseling and subsequently underwent genetic testing for a hereditary predisposition to cancers in eight major organ systems including breast, gynecologic, gastrointestinal, endocrine, genitourinary, skin, brain/nervous system, sarcoma and hematologic. Following are the results of this test. 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 The following 77 genes were analyzed: AIP, ALK, APC, MANJULA, AXIN2, BAP1, BARD1, BLM, BMPR1A, BRCA1, BRCA2, BRIP1, CDC73, CDH1, CDK4, CDKN1B, CDKN2A, CHEK2, CTNNA1, DICER1, FANCC, FH, FLCN, GALNT12, KIF1B, LZTR1, MAX, MEN1, MET, MLH1, MSH2, MSH3, MSH6, MUTYH, NBN, NF1, NF2, NTHL1, PALB2, PHOX2B, PMS2,POT1, FPRGH3Y, PTCH1, PTEN, RAD51C, RAD51D, RB1, RECQL, RET, SDHA, SDHAF2, SDHB, SDHC, SDHD, SMAD4,SMARCA4, SMARCB1, SMARCE1, STK11, SUFU, TORG978, TP53, TSC1, TSC2, VHL and XRCC2 (sequencing [...] for genetic counseling and testing. Our scheduling workers compensation legal secretary can be reached at [phone]. Family members can also go to the [...] with c oordinating movements (ataxia) begin in wastewater treatment engineer, usually before age 5. This condition is [...] routine pelvic exams as recommended by Ligia's sap technical architect or primary care provider ??? There is [...] screening, an appointment with Dr. Norma Bush,a recycling director at [facility], can be made by calling [phone]. Colon cancer screening ?? Periodic colonoscopy screening as recommended by Ligia's recycling director. Skin cancer screening ?? Skin cancer screening and sun protection are important for everyone, regardless of genetic predisposition. ?? Consideration of routine dermatologic/skin exams, as recommended by Ligia's primary care provider or spot sprayer. Ligia and her family should be aware [...] For some, a consultation with a psychologist, social security benefits interviewer, or psychiatrist may be helpful in dealing with feelings that may arise from genetic testing. If Ligia would like a referral, we can help to try to recommend a therapist who is familiar with issues surroundinggenetic conditions. documented in this encounter Plan of Treatment Not on file documented as of this encounter Visit Diagnoses Not on filedocumented in this encounter Care Teams Filing Machine Operator Relationship Specialty Start Date End Date Suzanne De Guzman MD [address] [place] [address] PCP - General 08/16/13 documented as of this encounter
--- OUTSIDE RECORDS SUMMARY | 2024-11-04 13:52 | XMS_ITS | Encounter Summary ---
Author Organization [facility] Address [address] [place] [address] Care Team Providers Care Warehouse Shipping Receiving Clerk Name Role Phone Unknown, Provider Primary Care Provider Inessa ilable Encounter Details Date Type Department Care Team (Late st Contact Info) Description 11/25/2018 Results Only [facility] [phone] Suzanne De Guzman MD [address] [place] [address] Social History Tobacco Use Types Packs/Day Years [...] ? LIGIA PATEL ? Accession #: ? [id number] ? : ? 1955 (Age: 63) ??F [...] types 16,18,31,33,35, 39,45,51,52,56,58, 59,66, and 68 by oyster picker mediated amplification. Comments Document reviewed and electronically signed by: ? System Interface ? Report date: 12/01/2018 By the signature above, the attending physician certifies that he/she has personally conducted a gross and/or microscopic examination of the described specimens and rendered or confirmed the above diagnosis. End of Report [facility] 11/25/2018 11/29/2018 us Suzanne De Guzman MD PATHOLOGY ORDERABLES Final Resu lt [facility] [address] [place] [address] documented in this encounter Visit Diagnoses Not on filedocumented in this encounter Care Teams Warehouse Shipping Receiving Clerk Relationship Specialty Start Date End Date Unknown, Provider, PCP - General 05/03/09 documented as of this encounter
--- OUTSIDE RECORDS SUMMARY | 2024-11-04 13:52 | XMS_ITS | Encounter Summary ---
Author Organization [facility] Address [address] [place] [address] Care Team Providers Care Infant Lead Teacher Name Role Phone Unknown, Provider Primary Care Provider Unava ilable Encounter Details Date Type Department Care Team (Late st Contact Info) Description 01/16/2006 Results Only [facility] [place] conversion [address] [place] [address] Nikolas Chávez MD 29 [facility] [address] [place] [address] Social History Tobacco Use Types [...] ? LIGIA PATEL ? Accession #: ? [id number] : ? 1955 (Age: 50) ??F ?Collect Date: ? 01/16/2006 Location: ? [facility] ? Receive Date: ? 01/19/2006 Provider: ?NIKOLAS CHÁVEZ MD Copy to: ? Specimen/Source: ?ThinPrep Pap Test, Cervix/Endocervix, processed on [employer] ThinPrep Imaging System, with manual evaluation Last [...] ORDERABLES Final Resu lt Performing Organization Address City/State/[facility] Co de Phone Number [facility] [address] [place] [address] documented in this encounter Visit Diagnoses Not on filedocumented in this encounter Care Teams Infant Lead Teacher Relationship Specialty Start Date End Date Unknown, Provider, PCP - General 05/03/09 documented as of this encounter
--- OUTSIDE RECORDS SUMMARY | 2024-11-04 13:52 | XMS_ITS | Encounter Summary ---
Author Organization [facility] Address [address] [place] [address] Care Team Providers Care Equipment Hire Manager Name Role Phone Unknown, Provider Primary Care Provider Inessa ilmitchell Encounter Details Date Type Department Care Team (Late st Contact Info) Description 03/23/2020 Lab Requisition [facility] Pathology & Laboratory Medicine - [facility] [address] [place], [place] [id number] Outr Resulting Lab, Provider Social History Tobacco [...] rt-PCR Result NEGATIVE Negative 03/25/2020 8:27 EDT [facility] Comment: 2019-novel Coronavirus (2019-nCoV) not [...] in accordance with CLIA regulations, College of [place] Pathologists (CAP) guidelines (Dec 22, 2019), and FDA guidance (Dec 03, 2019). This test is only for use under the Food and Drug Administration's Emergency Use Authorization. Swab ENTIRE NASOPHARYNX / Unknown 03/23/2020 9:34 EDT 03/23/2020 17:13 EDT us Provider Outr Resulting Lab MICROBIOLOGY - GENER AL ORDERABLES Final Result [facility] [place], [place] * COVID-19 TESTING (03/23/2020 9:34 EDT) COVID-19 rt-PCR Result NEGATIVE Negative 03/25/2020 10:38 EDT [facility] Comment: 2019-novel Coronavirus (2019-nCoV) not detected [...] in accordance with CLIA regulations, College of Somali Pathologists (CAP) guidelines (Dec 22, 2019), and FDA guidance (Dec 03, 2019). This test is only for use under the Food and Drug Administration's Emergency Use Authorization. Performing Lab [facility] 03/25/2020 10:38 EDT [facility] Swab 03/23/2020 9:34 EDT 03/23/2020 17:13 EDT us Provider Outr Resulting Lab MICROBIOLOGY - GENER AL ORDERABLES Final Result [facility] [address] [place] [address] [facility] [place], [place] documented in this encounter Visit Diagnoses Not on filedocumented in this encounter Care Teams Equipment Hire Manager Relationship Specialty Start Date End Date Unknown, Provider, PCP - General 05/03/09 documented as of this encounter
--- OUTSIDE RECORDS SUMMARY | 2024-11-04 13:52 | XMS_ITS | Encounter Summary ---
Author Organization [facility] Address [address] [place] [address] Care Team Providers Care Interior Mechanic Name Role Phone Unknown, Provider Primary Care Provider Unava ilable Encounter Details Date Type Department Care Team (Late st Contact Info) Description 01/14/2005 Results Only [facility] [place] conversion [address] [place] [address] Nikolas Chávez MD 29 [facility] [address] [place] [address] Social History Tobacco Use Types [...] ? LIGIA PATEL ? Accession #: ? [id number] : ? 1955 (Age: 49) ??F ?Collect [...] Final Resu lt [facility] [address] [place] [address] documented in this encounter Visit Diagnoses Not on filedocumented in this encounter Care Teams Interior Mechanic Relationship Specialty Start Date End Date Unknown, Provider, PCP - General 05/03/09 documented as of this encounter
--- OUTSIDE RECORDS SUMMARY | 2024-11-04 13:52 | XMS_ITS | Encounter Summary ---
Author Organization [facility] Address [address] [place] [address] Care Team Providers Care Fur Stylist Name Role Phone Unknown, Provider Primary Care Provider Unava ilable Encounter Details Date Type Department Care Team (Late st Contact Info) Description 12/25/2003 Results Only [facility] [place] [facility] [address] [place] [address] Nikolas Chávez MD 29 [facility] [address] [place] [address] Social History Tobacco Use [...] ? LIGIA PATEL ? Accession #: ? [id number] : ? 1955 (Age: 48) ??F ?Collect [...] Final Resu lt [facility] [address] [place] [address] documented in this encounter Visit Diagnoses Not on filedocumented in this encounter Care Teams Fur Stylist Relationship Specialty Start Date End Date Unknown, Provider, PCP - General 05/03/09 documented as of this encounter
--- OUTSIDE RECORDS SUMMARY | 2024-11-04 13:52 | XMS_ITS | Encounter Summary ---
Author Organization [facility] Address [address] [place] [address] Care Team Providers Care Plastic Products Sales Representative Name Role Phone Unknown, Provider Primary Care Provider Unava ilable Encounter Details Date Type Department Care Team (Latest Contact Info) Description 11/26/2016 10:48 EST - 11/26/2016 23:59 EST Hospital Encounter [address] [address] Unknown, Provider, Discharge Disposition: Home or Self [...] Code Departure Means Destination Home or Self Half-Way documented in this encounter Plan of Treatment Not on file documented as of this encounter Visit Diagnoses Not on filedocumented in this encounter Care Teams Plastic Products Sales Representative Relationship Specialty Start Date End Date Unknown, Provider, PCP - General 05/03/09 documented as of this encounter
--- OUTSIDE RECORDS SUMMARY | 2024-11-04 13:52 | XMS_ITS | Encounter Summary ---
Author Organization [facility] Address [address] [place] [address] Care Team Providers Care Trade Sales Assistant Name Role Phone Unknown, Provider Primary Care Provider Unava ilable Encounter Details Date Type Department Care Team (Late st Contact Info) Description 10/10/2004 Results Only [facility] [place] [facility] [address] [place] [address] Nikolas Chávez MD 29 [facility] [address] [place] [address] Social History Tobacco Use Types [...] ORDERABLES Final Resu lt [facility] [address] [place] [address] documented in this encounter Visit Diagnoses Not on filedocumented in this encounter Care Teams Trade Sales Assistant Relationship Specialty Start Date End Date Unknown, Provider, PCP - General 05/03/09 documented as of this encounter
--- OUTSIDE RECORDS SUMMARY | 2024-11-04 13:52 | XMS_ITS | Encounter Summary ---
Author Organization [facility] Address [address] [place] [address] Care Team Providers Care Rhic Systems Safety Engineer Name Role Phone Unknown, Provider Primary Care Provider Unava ilable Encounter Details Date Type Department Care Team (Late st Contact Info) Description 01/19/2001 Results Only [facility] [place] conversion [address] [place] [address] Nikolas Chávez MD 29 [facility] [address] [place] [address] Social History Tobacco Use Types [...] ? LIGIA PATEL ? Accession #: ? [id number] ? : ? 1955 (Age: 45) ??F [...] is entirely submitted in one cassette. ??(Kwan Mckenzie)/[facility] End of Report [facility] 01/19/2001 01/19/2001 14: 55 EDT us Nikolas Chávez MD PATHOLOGY ORDERABLES Final Resu lt [facility] [address] [place] [address] documented in this encounter Visit Diagnoses Not on filedocumented in this encounter Care Teams Rhic Systems Safety Engineer Relationship Specialty Start Date End Date Unknown, Provider, PCP - General 05/03/09 documented as of this encounter
--- OUTSIDE RECORDS SUMMARY | 2024-11-04 13:52 | XMS_ITS | Encounter Summary ---
Author Organization [facility] Address [address] [place] [address] Care Team Providers Care Breast Buffer Name Role Phone Unknown, Provider Primary Care Provider Inessa ilable Encounter Details Date Type Department Care Team (Late st Contact Info) Description 06/29/2020 Lab Requisition [facility] Pathology & Laboratory Medicine - [facility] [address] [place], [place] [id number] Outr Resulting Lab, Provider Social History Tobacco [...] rt-PCR Result NEGATIVE Negative 07/01/2020 0:00 EDT [facility] Comment: 2019-novel Coronavirus (2019-nCoV) [...] in accordance with CLIA regulations, College of [place] Pathologists (CAP) guidelines (Dec 22, 2019), and FDA guidance (Dec 03, 2019). This test is only for use under the Food and Drug Administration's Emergency Use Authorization. Swab ENTIRE NASOPHARYNX / Unknown 06/29/2020 14:28 EDT 06/29/2020 20:35 EDT us Provider Outr Resulting Lab MICROBIOLOGY - GENER AL ORDERABLES Final Result [facility] [place], [place] * COVID-19 TESTING (06/29/2020 14:28 EDT) COVID-19 rt-PCR Result NEGATIVE Negative 07/01/2020 2:46 EDT [facility] Comment: 2019-novel Coronavirus (2019-nCoV) not detected [...] in accordance with CLIA regulations, College of [employer] [place] Pathologists (CAP) guidelines (Dec 22, 2019), and FDA guidance (Dec 03, 2019). This test is only for use under the Food and Drug Administration's Emergency Use Authorization. Performing Lab [facility] [employer] [facility] 07/01/2020 2:46 EDT [facility] Swab 06/29/2020 14:2 8 EDT 06/29/2020 20:35 EDT us Provider Outr Resulting Lab MICROBIOLOGY - GENER AL ORDERABLES Final Result [facility] [address] [place], [place] [id number] [place] [address] LABORATORY [place] documented in this encounter Visit Diagnoses Not on filedocumented in this encounter Care Teams Breast Buffer Relationship Specialty Start Date End Date Unknown, Provider, PCP - General 05/03/09 documented as of this encounter
--- OUTSIDE RECORDS SUMMARY | 2024-11-04 13:52 | XMS_ITS | Encounter Summary ---
Author Organization [facility] Address [address] [place] [address] Care Team Providers Care Director Biologics Name Role Phone Unknown, Provider Primary Care Provider Unava ilable Encounter Details Date Type Department Care Team (Late st Contact Info) Description 09/08/2019 Lab Requisition [facility] Pathology & Laboratory Medicine - [facility] [address] [place] [address] Dalton Love MD [address] [place] [phone] Encounter for other general examination Social History [...] Negative for high-grade dysplasia. 09/12/2019 11:02 EST [facility] at [address]2 Clinical History Uvular mass 09/12/2019 11:02 EST [facility] Attestation By the signature below, the attending physician certifies that they have personally conducted a gross and/or microscopic examination of the described specimens and rendered or confirmed the above diagnosis. 09/12/2019 11:02 [facility] at 1102 Gross Description A. Received in formalin labelled with proper patient identification (initials T, D) and uvular mass are 2 fragments of sarmiento-white soft tissue (0.2 x 0.2 x 0.2 cm and 0.4 x 0.2 x 0.2 cm). The specimen is submitted in toto in A1. Jackie Jhony 09/09/2019 09:30 09/12/2019 11:02 [facility] Scanned Images 09/12/2019 11:02 [facility] Tissue ENTIRE UVULA [place] / Unknown 09/08/2019 15:44 EST 09/08/2019 21:39 EST us Dalton Love MD PATHOLOGY ORDERABLES Final Resul t [facility] [address] [place] [address] documented in this encounter Visit Diagnoses Diagnosis Encounter for other general examination documented in this encounter Care Teams Director Biologics Relationship Specialty Start Date End Date Unknown, Provider, PCP - General 05/03/09 documented as of this encounter
--- OUTSIDE RECORDS SUMMARY | 2024-11-04 13:52 | XMS_ITS | Clinical Summary ---
Author Organization [facility] Address [address] [place] [address] Care Team Providers Care Md Allergy Immunology Name Role Phone Unknown, Provider Primary Care [...] series) 2031 Insurance [employer] Care Teams Md Allergy Immunology Relationship Specialty Start Date End Date Unknown, Provider, PCP - General 05/03/09
--- OUTSIDE RECORDS SUMMARY | 2024-11-04 13:52 | XMS_ITS | Encounter Summary ---
Author Organization [facility] Address [address] [place] [address] Care Team Providers Care Electrician Assistant Name Role Phone Unknown, Provider Primary Care Provider Unava ilable Encounter Details Date Type Department Care Team (Late st Contact Info) Description 12/27/2001 Results Only [facility] [place] conversion [address] [place] [address] Nikolas Chávez MD 29 [facility] [address] [place] [address] Social History Tobacco Use Types [...] ? LIGIA PATEL ? Accession #: ? [id number] : ? 1955 (Age: 46) ??F ?Collect [...] ORDERABLES Final Resu lt [facility] [address] [place] [address] documented in this encounter Visit Diagnoses Not on filedocumented in this encounter Care Teams Electrician Assistant Relationship Specialty Start Date End Date Unknown, Provider, PCP - General 05/03/09 documented as of this encounter
--- OUTSIDE RECORDS SUMMARY | 2024-11-04 13:52 | XMS_ITS | Encounter Summary ---
Author Organization [facility] Address [address] [place] [address] Care Team Providers Care Sales Person Name Role Phone Unknown, Provider Primary Care Provider Unava ilable Encounter Details Date Type Department Care Team (Late st Contact Info) Description 06/28/2002 Results Only [facility] [place] conversion [address] [place] [address] Suzanne De Guzman MD [address] [place], [place] [address] Social History Tobacco Use Types Packs/Day Years [...] ? LIGIA PATEL ? Accession #: ? [id number] ? : ? 1955 (Age: 46) ??F [...] Final Resu lt [facility] [address] [place] [address] documented in this encounter Visit Diagnoses Not on filedocumented in this encounter Care Teams Sales Person Relationship Specialty Start Date End Date Unknown, Provider, PCP - General 05/03/09 documented as of this encounter
--- OUTSIDE RECORDS SUMMARY | 2024-11-04 13:52 | XMS_ITS | Encounter Summary ---
Author Organization [facility] Address [address] [place] [address] Care Team Providers Care Oxygen Plant Operator Name Role Phone Unknown, Provider Primary Care Provider Unava ilable Encounter Details Date Type Department Care Team (Late st Contact Info) Description 11/26/2016 Results Only [facility] [phone] Rickie Bosch, DO [address] [facility] [address] [place], [place] [phone] Social History Tobacco Use Types Packs/Day Years [...] ? LIGIA PATEL ? Accession #: ? [id number] ? : ? 1955 (Age: 61) ??F [...] Diaz 11/27/2016 4:34 PM End of Report [facility] 11/26/2016 9:42 EST 11/27/2016 9:42 EST us Rickie Bosch DO PATHOLOGY ORDERABLES Fi nal Result [facility] [address] [place] [address] documented in this encounter Visit Diagnoses Not on filedocumented in this encounter Care Teams Oxygen Plant Operator Relationship Specialty Start Date End Date Unknown, Provider, PCP - General 05/03/09 documented as of this encounter
--- OUTSIDE RECORDS SUMMARY | 2024-11-04 13:52 | XMS_ITS | Encounter Summary ---
[place] [address] Care Team Providers Care Bleach Tester Name Role Phone Suzanne De Guzman MD Primary Care Provider [phone] Encounter Details Date Type Department Care Team (Late st Contact Info) Description 04/24/2022 Telephone Hematology [place] [phone] [facility] [address] [facility] [address] Social History Tobacco Use Types Packs/Day Years [...] on filedocumented in this encounter Care Teams Bleach Tester Relationship Specialty Start Date End Date Suzanne De Guzman MD [address] [place] [address] PCP - General 08/16/13 documented as of this encounter
--- OUTSIDE RECORDS SUMMARY | 2024-11-04 13:52 | XMS_ITS | Encounter Summary ---
Author Organization [facility] Address [address] [place] [address] Care Team Providers Care Coal Unloader Name Role Phone Unknown, Provider Primary Care Provider Inessa ilable Encounter Details Date Type Department Care Team (Late st Contact Info) Description 12/11/2020 Lab Requisition [facility] Pathology & Laboratory Medicine - [facility] [address] [place], [place] [address] Outr Resulting Lab, Provider Social History Tobacco [...] MICROBIOLOGY - GENER AL ORDERABLES Final Result [facility] [address] [place] [address] * COVID-19 TESTING (12/11/2020 14:51 EST) COVID-19 rt-PCR Result Negative Negative 12/12/2020 1:24 EST [facility] Comment: This test has not [...] history, and epidemiological information. Performed on the [employer] Fusion instrument Performing Lab [facility] 12/12/2020 1:24 EST [facility] Swab 12/11/2020 14:5 1 EST 12/11/2020 20:54 EST us Provider Outr Resulting Lab MICROBIOLOGY - GENER AL ORDERABLES Final Result [facility] [address] [place] [address] documented in this encounter Visit Diagnoses Not on filedocumented in this encounter Care Teams Coal Unloader Relationship Specialty Start Date End Date Unknown, Provider, PCP - General 05/03/09 documented as of this encounter
--- OUTSIDE RECORDS SUMMARY | 2024-11-04 13:52 | XMS_ITS | Encounter Summary ---
Author Organization [facility] Address [address] [place] [address] Care Team Providers Care Occupational Health Physician Name Role Phone Unknown, Provider Primary Care Provider Inessa ilable Encounter Details Date Type Department Care Team (Late st Contact Info) Description 04/11/2014 Results Only [facility] [place] Laboratory Services - [facility] ([facility]) [address] [place], [place] [address] Jeny Rae MD [address] [place] [address] [place] [address] Social History Tobacco Use Types Packs/Day Years [...] ? LIGIA PATEL ? Accession #: ? [id number] ? : ? 1955 (Age: 58) ??F [...] types 16,18,31,33,35, 39,45,51,52,56,58, 59,66, and 68 by core composer feeder mediated amplification. Comments Document reviewed and electronically [...] ORDERABLES Final Resu lt Performing Organization Address City/State/[facility] Co de Phone Number [facility] [address] [place] [address] documented in this encounter Visit Diagnoses Not on filedocumented in this encounter Care Teams Occupational Health Physician Relationship Specialty Start Date End Date Unknown, Provider, PCP - General 05/03/09 documented as of this encounter
--- OUTSIDE RECORDS SUMMARY | 2024-11-04 13:52 | XMS_ITS | Encounter Summary ---
Author Organization [facility] Address [address] [place] [address] Care Team Providers Care Massage Therapy Instructor Name Role Phone Unknown, Provider Primary Care Provider Unava ilable Encounter Details Date Type Department Care Team (Late st Contact Info) Description 02/18/2000 Results Only [facility] [place] conversion [address] [place] [address] Michael Bosch MD [address] [place] [address] Social History Tobacco Use Types Packs/Day Years [...] ? LIGIA LARA ? Accession #: ? [id number] ? : ? 1955 (Age: 44) ??F [...] FH and personal hx of phyllodes (Dx [facility] path) and ductal CA L breast; see [id number], [id number], [id number] Gross Description: ? Received in formalin labelled [...] PERES A1 ?Nipple A2 ?Lactiferous sinus A3-A5 ?Vending Service Technician sections of upper inner quadrant A6-A8 ?Vending Service Technician sections of upper outer quadrant A9-A11 ?Vending Service Technician sections of lower outer quadrant A12-A14 ? Vending Service Technician sections of lower inner quadrant ([facility]. [facility]) /ljn End of Report [facility] 02/18/2000 02/19/2000 10: 04 EDT us Michael Bosch MD PATHOLOGY ORDERABLES Final Result [facility] [address] [place] [address] documented in this encounter Visit Diagnoses Not on filedocumented in this encounter Care Teams Massage Therapy Instructor Relationship Specialty Start Date End Date Unknown, Provider, PCP - General 05/03/09 documented as of this encounter
--- OUTSIDE RECORDS SUMMARY | 2024-11-04 13:52 | XMS_ITS | Encounter Summary ---
Author Organization [facility] Address [address] [place] [address] Care Team Providers Care Operator Catalyst Concentration Name Role Phone Unknown, Provider Primary Care Provider Unava ilable Encounter Details Date Type Department Care Team (Late st Contact Info) Description 12/18/1999 Results Only [facility] [place] conversion [address] [place] [address] Nikolas Chávez MD 29 [facility] [address] [place] [address] Social History Tobacco Use Types [...] ? LIGIA PATEL ? Accession #: ? [id number] : ? 1955 (Age: 44) ??F ?Collect Date: ? 12/18/1999 Location: ?Receive Date: ? 12/18/1999 Provider: ?NIKOLAS CHÁVEZ MD Copy to: ?NIKOLAS CHÁVEZ MD ? Specimen/Source: ?Production Planning Supervisor ThinPrep Last Menstrual Period: ? GYNECOLOGIC ??CYTOPATHOLOGY ??REPORT Name: JORGELIGIA ? [facility] : 1955 ?? 44Y F ?Client ID: [id number] SS#: [id number] ? Clinician: NIKOLAS CHÁVEZ MD ?? Location: [facility] ??Copy to: ?? Specimen: ?Production Planning Supervisor ThinPrep ? Source: Cervix/Endocervix ?Collected: 12/16/99 ? [...] Martinez, CT(ASCP) ? Report Date: ?? 12/24/1999 AudioName Archived Tests - Final Diagnosis Text Field: Clinical History : ;Tamoxifen therapy. S/P breast ca. 12/25/98 squamous metaplasia. Amenorrhea. NL exam. ? Document reviewed and electronically signed by: ? Conversion ? Report Date: ??12/24/1999 00:00 End of Report [facility] 12/18/1999 13:4 5 EST 12/18/1999 13:46 EST us Nikolas Chávez MD PATHOLOGY ORDERABLES Final Resu lt [facility] [address] [place] [address] documented in this encounter Visit Diagnoses Not on filedocumented in this encounter Care Teams Operator Catalyst Concentration Relationship Specialty Start Date End Date Unknown, Provider, PCP - General 05/03/09 documented as of this encounter
--- OUTSIDE RECORDS SUMMARY | 2024-11-04 13:52 | XMS_ITS | Encounter Summary ---
Author Organization [facility] Address [address] [place] [address] Care Team Providers Care Senior Information Developer Name Role Phone Unknown, Provider Primary Care Provider Unava ilable Encounter Details Date Type Department Care Team (Late st Contact Info) Description 08/22/2004 Results Only [facility] conversion [address] [place] [address] Nikolas Chávez MD 29 [facility] [address] [place] [address] Social History Tobacco Use Types [...] ? LIGIA PATEL ? Accession #: ? [id number] ? : ? 1955 (Age: 48) ??F [...] submitted in toto in one cassette. ??(Nancie Hatfield)/[facility] End of Report [facility] 08/22/2004 08/23/2004 15: 03 EST us Nikolas Chávez MD PATHOLOGY ORDERABLES Final Resu lt [facility] [address] [place] [address] documented in this encounter Visit Diagnoses Not on filedocumented in this encounter Care Teams Senior Information Developer Relationship Specialty Start Date End Date Unknown, Provider, PCP - General 05/03/09 documented as of this encounter
--- OUTSIDE RECORDS SUMMARY | 2024-11-04 13:52 | XMS_ITS | Encounter Summary ---
Author Organization [facility] Address [address] [place] [address] Care Team Providers Care Hide Measuring Machine Operator Name Role Phone Unknown, Provider Primary Care Provider Inessa ilable Encounter Details Date Type Department Care Team (Late st Contact Info) Description 07/15/2021 Lab Requisition [facility] Pathology & Laboratory Medicine - [facility] [address] [place], [place] [id number] Outr Resulting Lab, Provider Social History Tobacco [...] MICROBIOLOGY - GENER AL ORDERABLES Final Result [facility] [address] [place] [address] * COVID-19 TESTING (07/15/2021 11:01 EDT) COVID-19 rt-PCR Result Negative Negative 07/16/2021 0:00 EDT [facility] Comment: This test has not [...] history, and epidemiological information. Performed on the adflyerher Fusion instrument Performing Lab [place] [facility] 07/16/2021 0:00 EDT [facility] Swab 07/15/2021 11:0 1 EDT 07/15/2021 21:06 EDT us Provider Outr Resulting Lab MICROBIOLOGY - GENER AL ORDERABLES Final Result [facility] [address] [place] [address] documented in this encounter Visit Diagnoses Not on filedocumented in this encounter Care Teams Hide Measuring Machine Operator Relationship Specialty Start Date End Date Unknown, Provider, PCP - General 05/03/09 documented as of this encounter
--- OUTSIDE RECORDS SUMMARY | 2024-11-04 13:52 | XMS_ITS | Referral Summary ---
Author Organization [facility] Address [address] [place] [address] Care Team Providers Care Electronic Court Recorder Name Role Phone Unknown, Provider Primary Care [...] on file Insurance [employer] Care Teams Electronic Court Recorder Relationship Specialty Start Date End Date Unknown, Provider, PCP - General 05/03/09
--- OUTSIDE RECORDS SUMMARY | 2024-11-04 13:52 | XMS_ITS | Encounter Summary ---
Author Organization [facility] Address [address] [place] [address] Care Team Providers Care Dehydrogenation Operator Head Name Role Phone Unknown, Provider Primary Care Provider Unava ilable Encounter Details Date Type Department Care Team (Late st Contact Info) Description 12/30/2021 Lab Requisition [facility] Pathology & Laboratory Medicine - [facility] [address] [place] [address] Divya Rojas MD [address] [place] [address] [address] [place], [place] [id number] Encounter for screening for malignant neoplasm of [...] management options, if applicable. 01/02/2022 8:48 EDT [facility] Final Diagnosis A. COLON, TRANSVERSE, POLYP, BIOPSY: - Submucosal leiomyoma. - Overlying colonic mucosa with no significant diagnostic abnormality. - Deeper levels examined. B. RECTUM, POLYPS X3, BIOPSY: - Hyperplastic polyps. - Separate fragment of squamous mucosa with no significant diagnostic abnormality. 01/02/2022 8:48 [facility] Attestation By the signature below, the attending physician certifies that they have 1) personally conducted a gross and/or microscopic examination of the described specimen(s), and/or personally interpreted the results of laboratory testing of the described specimen(s), and 2) personally rendered or confirmed the above diagnosis. 01/02/2022 8:48 [facility] at 0848 Clinical History Colonoscopy screening, history of polyps 01/02/2022 8:48 [facility] Gross Description A. Received [...] Lorne Duckworth 12/31/2021 7:43 01/02/2022 8:48 T [facility] Performing Lab [facility] 01/02/2022 8:48 T [facility] Scanned Images 01/02/2022 8:48 [facility] Tissue SPECIMEN FROM RECTUM / Unknown 12/30/2021 8:28 EDT 12/30/2021 17:34 EDT Tissue specimen (specimen) SPECIMEN FROM RECTUM / Unknown 12/30/2021 8:28 EDT 12/30/2021 17:34 EDT us Divya Rojas MD PATHOLOGY ORDERABLES Fin al Result [facility] [address] [place] [address] documented in this encounter Visit Diagnoses Diagnosis Encounter for screening for malignant neoplasm of colon Special screening for malignant neoplasms, colon documented in this encounter Care Teams Dehydrogenation Operator Head Relationship Specialty Start Date End Date Unknown, Provider, PCP - General 05/03/09 documented as of this encounter
--- OUTSIDE RECORDS SUMMARY | 2024-11-04 13:52 | XMS_ITS | Clinical Summary ---
Author Organization Replaced By [facility] Address [facility] [place] [address] Care Team Providers Care Compass Operator Name Role Phone Suzanne De Guzman MD Primary Care Provider [phone] Allergies Active Allergy Reactions Criticality Noted Date [...] 1996 Breast Cancer screening 1996 Pneumoccocal Vaccine: 50+ (1 of 1 - PCV) 2006 Zoster vaccine (1 of 2) 2006 Advance Directive 2011 Bone Density Scan 2021 Covid-19 Vaccine (1 - 2023- season) 2024 Influenza (Flu) vaccine (1 o f 1 - Influenza standard series) 06/05/2024 Care Teams Compass Operator Relationship Specialty Start Date End Date Suzanne De Guzman MD [address] [place], [place] [address] PCP - General 08/16/13
--- OUTSIDE RECORDS SUMMARY | 2024-11-04 13:52 | XMS_ITS | Encounter Summary ---
Author Organization [facility] Address [address] [place] [address] Care Team Providers Care Roller Mill Operator Name Role Phone Unavailable Primary Care Provider Unavailabl e Encounter Details Date Type Department Care Team (Late st Contact Info) Description 05/01/2009 Orders Only [facility] Medicine [address] [address] Lon Mckeon MD [address] [place], [place] [id number] Social History Tobacco Use Types Packs/Day Years [...] ? JORGE, LIGIA ? Accession #: ? [id number] ? : ? 1955 (Age: 53) ??F [...] variable ? amount of melanin pigment. ??(Dr. Lyons)/[facility] ? Document reviewed and electronically signed [...] Final Resul t [facility] [address] [place] [address] documented in this encounter Visit Diagnoses Not on filedocumented in this encounter
--- OUTSIDE RECORDS SUMMARY | 2024-11-04 13:52 | XMS_ITS | Encounter Summary ---
Author Organization [facility] Address [address] [place] [address] Care Team Providers Care Ball Mill Operator Name Role Phone Unknown, Provider Primary Care Provider Inessa dozier Encounter Details Date Type Department Care Team (Late st Contact Info) Description 02/14/2010 Results Only [facility] Laboratory Services - [facility] ([facility]) [address] [place], [place] [address] Jeny Rae MD [address] [place] [address] [place] [address] Social History Tobacco Use Types Packs/Day Years [...] ? LIGIA PATEL ? Accession #: ? [id number] ? : ? 1955 (Age: 54) ??F [...] Final Resu lt [facility] [address] [place] [address] documented in this encounter Visit Diagnoses Not on filedocumented in this encounter Care Teams Ball Mill Operator Relationship Specialty Start Date End Date Unknown, Provider, PCP - General 05/03/09 documented as of this encounter
--- OUTSIDE RECORDS SUMMARY | 2024-11-04 13:52 | XMS_ITS | Encounter Summary ---
Author Organization [facility] Address [address] [place] [address] Care Team Providers Care Winery Worker Name Role Phone Unavailable Primary Care Provider Unavailabl e Encounter Details Date Type Department Care Team (Late st Contact Info) Description 02/07/2009 Orders Only [facility] Laboratory Services - [facility] [address] [place], [place] [id number] Jeny Rae MD [address] [place] [address] [place] [address] Social History Tobacco Use Types Packs/Day Years [...] ? LIGIA PATEL ? Accession #: ? [id number] ? : ? 1955 (Age: 53) ??F [...] Final Resu lt [facility] [address] [place] [address] documented in this encounter Visit Diagnoses Not on filedocumented in this encounter
--- OUTSIDE RECORDS SUMMARY | 2024-11-04 13:52 | XMS_ITS | Encounter Summary ---
Author Organization [facility] Address [address] [place] [address] Care Team Providers Care Applications Support Specialist Name Role Phone Unknown, Provider Primary Care Provider Unava ilable Encounter Details Date Type Department Care Team (Late st Contact Info) Description 01/22/2007 Results Only [facility] [place] conversion [address] [place] [address] Nikolas Chávez MD 29 [facility] [address] [place] [address] Social History Tobacco Use Types [...] ? LIGIA PATEL ? Accession #: ? [id number] : ? 1955 (Age: 51) ??F ?Collect Date: ? 01/22/2007 Location: ? [facility] ? Receive Date: ? 01/25/2007 Provider: ?NIKOLAS CHÁVEZ MD Copy to: ? Specimen/Source: ?ThinPrep Pap Test, Cervix/Endocervix, processed on [employer] ThinPrep Imaging System, with manual evaluation Last Menstrual Period: ? Other: ? Additional clinical information: Atrophic vagina ? SPECIMEN ADEQUACY ? Satisfactory for Evaluation - transformation zone component present GENERAL CATEGORIZATION ? Negative for Intraepithelial Lesion or Malignancy ? Document reviewed and electronically signed by: ? AMY Almodovar(ASCP) ? Report Date: ??01/28/2007 16:58 End of Report [facility] 01/22/2007 01/25/2007 us Nikolas Chávez MD PATHOLOGY ORDERABLES Final Resu lt [facility] [address] [place] [address] documented in this encounter Visit Diagnoses Not on filedocumented in this encounter Care Teams Applications Support Specialist Relationship Specialty Start Date End Date Unknown, Provider, PCP - General 05/03/09 documented as of this encounter
--- OUTSIDE RECORDS SUMMARY | 2024-11-04 13:52 | XMS_ITS | Encounter Summary ---
Author Organization [facility] Address [address] [place] [address] Care Team Providers Care Web Communications Specialist Name Role Phone Unknown, Provider Primary Care Provider Unava ilable Encounter Details Date Type Department Care Team (Late st Contact Info) Description 01/02/2003 Results Only [facility] [place] conversion [address] [place] [address] Nikolas Chávez MD 29 [facility] [address] [place] [address] Social History Tobacco Use Types [...] ? LIGIA PATEL ? Accession #: ? [id number] : ? 1955 (Age: 47) ??F ?Collect [...] Report [facility] 01/02/2003 01/03/2003 us Nikolas Chávze MD PATHOLOGY ORDERABLES Final Resu lt [facility] [address] [place] [address] documented in this encounter Visit Diagnoses Not on filedocumented in this encounter Care Teams Web Communications Specialist Relationship Specialty Start Date End Date Unknown, Provider, PCP - General 05/03/09 documented as of this encounter
--- OUTSIDE RECORDS SUMMARY | 2024-11-04 13:52 | XMS_ITS | Encounter Summary ---
Author Organization [facility] Address [address] [place] [address] Care Team Providers Care Concession Attendant Name Role Phone Unknown, Provider Primary Care Provider Inessa ilmitchell Encounter Details Date Type Department Care Team (Late st Contact Info) Description 05/29/2022 Lab Requisition [facility] Pathology & Laboratory Medicine - [facility] [address] [place], [place] [address] Outr Resulting Lab, Provider Social History Tobacco [...] MICROBIOLOGY - GENER AL ORDERABLES Final Result [facility] [address] [place] [address] * COVID-19 TESTING (05/28/2022 11:18 EDT) COVID-19 rt-PCR Result Negative Negative 05/30/2022 10:37 EDT [facility] Comment: This test has [...] performed using the guy SARS-CoV-2 assay ([employer] on the Guy 6800 System Performing Lab Guy [address] [facility] Lab 05/30/2022 10:37 EDT [facility] Swab 05/28/2022 11:1 8 EDT 05/29/2022 17:13 EDT us Provider Outr Resulting Lab MICROBIOLOGY - GENER AL ORDERABLES Final Result [facility] [address] [place] [address] documented in this encounter Visit Diagnoses Not on filedocumented in this encounter Care Teams Concession Attendant Relationship Specialty Start Date End Date Unknown, Provider, PCP - General 05/03/09 documented as of this encounter
--- OUTSIDE RECORDS SUMMARY | 2024-11-04 13:53 | XMS_ITS | Encounter Summary ---
Author Organization [facility] [place] [address] Care Team Providers Care Change House Attendant Name Role Phone Suzanne De Guzman MD Primary Care Provider [phone] Encounter Details Date Type Department Care Team (Late st Contact Info) Description 04/16/2015 Telephone Hematology/Oncology at [address] [address] Mariajose Castellano RN Social History [...] 04/16/2015 10:16 AM EDT Telephone call to [facility] pharmacy to call in prescription written 04/13/2015 by Iraida Zhou APRN forletrozole (FEMARA) 2.5 mg Take 1 tablet daily. Qty:90 (ninety tablets) Refills: 3 refills documented in this encounter Plan of Treatment Not on file documented as of this encounter Visit Diagnoses Not on filedocumented in this encounter Care Teams Change House Attendant Relationship Specialty Start Date End Date Suzanne De Guzman MD [address] [place] [address] PCP - General 08/16/13 documented as of this encounter
--- OUTSIDE RECORDS SUMMARY | 2024-11-04 13:53 | XMS_ITS | Encounter Summary ---
Author Organization [facility] [place] [address] Care Team Providers Care It Business Analyst Name Role Phone Suzanne De Guzman MD Primary Care Provider [phone] Reason for Visit * Reason Onset Date Comments Results 12/07/2015 Dexa Scan Encounter Details Date Type Department Care Team (Late st Contact Info) Description 12/07/2015 Telephone Hematology/Oncology at [address] [address] Ivana Chu RN Results (Dexa [...] on filedocumented in this encounter Care Teams It Business Analyst Relationship Specialty Start Date End Date Suzanne De Guzman MD [address] [place], [place] [address] PCP - General 08/16/13 documented as of this encounter
--- OUTSIDE RECORDS SUMMARY | 2024-11-04 13:53 | XMS_ITS | Encounter Summary ---
[place] [address] Care Team Providers Care Cupola Operator Name Role Phone Suzanne De Guzman MD Primary Care Provider [phone] Encounter Details Date Type Department Care Team (Late st Contact Info) Description 05/19/2016 Telephone Hematology [place] [phone] Delmy Bruner LGC Social History Tobacco Use [...] BRCA1 and BRCA2 genes, previously performed by [employer] in 2006 and is now completely negative or normal. In the past, the test result reported a variant of uncertain significance in the BRCA1 gene which since then has been reclassified to a benign polymorphism that is no longer reported. I discussed the option of additional testing for other genes associated with a higher risk of breast cancer, such as [employer] BreastNext Panel. We reviewed the benefits, risks [...] option in more detail. She asked our pathology secretary to contact her at the end of June to schedule an appointment. documented in this encounter Plan of Treatment Not on file documented as of this encounter Visit Diagnoses Not on filedocumented in this encounter Care Teams Cupola Operator Relationship Specialty Start Date End Date Suzanne De Guzman MD [address] [place] [address] PCP - General 08/16/13 documented as of this encounter
--- OUTSIDE RECORDS SUMMARY | 2024-11-04 13:53 | XMS_ITS | Encounter Summary ---
Author Organization [place] [address] Care Team Providers Care Branch Coordinator Name Role Phone Suzanne De Guzman MD Primary Care Provider [phone] Encounter Details Date Type Department Care Team (Late st Contact Info) Description 02/13/2015 Orders Only Hematology/Oncology at [address] [address] Maria M Mitchell RN Breast [...] laterality documented in this encounter Care Teams Branch Coordinator Relationship Specialty Start Date End Date Suzanne De Guzman MD [address] [place] [address] PCP - General 08/16/13 documented as of this encounter
--- OUTSIDE RECORDS SUMMARY | 2024-11-04 13:53 | XMS_ITS | Encounter Summary ---
Author Organization [facility] [place] [address] Care Team Providers Care Food Specialist Name Role Phone Suzanne De Guzman MD Primary Care Provider Reason for Visit * Reason Comments Follow-up Encounter Details Date Type Department Care Team ([facility] st Contact Info) Description 02/26/2011 3:00 PM EDT Follow-Up Hematology Oncology at [address] [phone] Tri March, Breast cancer (Primary [...] in this encounter Progress Notes * Tri March, FINANCIAL SERVICES DIRECTOR - 02/26/2011 3:56 PM EDT Hematology/Oncology Outreach Clinic - [place], [place], [id number] () - [phone] (fax) ESTABLISHED PATIENT EVALUATION: PHx/Problem List: 1. [...] resection and oophorectomy. She has been on long-term adjuvant therapy first with tamoxifen and supsequently [...] site documented in this encounter Care Teams Food Specialist Relationship Specialty Start Date End Date Suzanne De Guzman MD [address] [place] [address] PCP - General 08/27/10 09/30/12 documented as of this encounter
--- OUTSIDE RECORDS SUMMARY | 2024-11-04 13:53 | XMS_ITS | Encounter Summary ---
Author Organization [place] [address] Care Team Providers Care Laborer Shipyard Name Role Phone Bobbi Blum MD Primary Care Provider [phone] Reason for Visit * Reason Comments Follow-up adenocarcinoma of br east Encounter Details Date Type Department Care Team (Late st Contact Info) Description 10/01/2012 11:00 AM EST Follow-Up Hematology Oncology at [address] [address] Jesu Post MD Adenocarcinoma of [...] site documented in this encounter Care Teams Laborer Shipyard Relationship Specialty Start Date End Date Bobbi Blum MD HOSPITALIST SERVICES [address] [place] [address] [place] [address] PCP - General 10/01/12 08/15/13 documented as of this encounter
--- OUTSIDE RECORDS SUMMARY | 2024-11-04 13:53 | XMS_ITS | Encounter Summary ---
Author Organization [facility] [place] [address] Care Team Providers Care Superintendent Meter Tests Name Role Phone Suzanne De Guzman MD Primary Care Provider [phone] Reason for Visit * Reason Onset Date Comments Medical Care Coordination 04/16/2016 Encounter Details Date Type Department Care Team (Late st Contact Info) Description 04/16/2016 Telephone Hematology Oncology at [address] [address] Dagmar Rizvi I RN Medical [...] AM EDT Received Edh message from clinical secretary receptionist ?? Patient called about a prescription. ??Please [...] on filedocumented in this encounter Care Teams Superintendent Meter Tests Relationship Specialty Start Date End Date Suzanne De Guzman MD [address] [place] [address] PCP - General 08/16/13 documented as of this encounter
--- OUTSIDE RECORDS SUMMARY | 2024-11-04 13:53 | XMS_ITS | Encounter Summary ---
[place] [address] Care Team Providers Care Lithographic Photographer Name Role Phone Suzanne De Guzman MD Primary Care Provider [phone] Encounter Details Date Type Department Care Team (Late st Contact Info) Description 09/22/2014 2:30 PM EST Follow-Up [address] [address] Jesu Post MD Social History [...] on filedocumented in this encounter Care Teams Lithographic Photographer Relationship Specialty Start Date End Date Suzanne De Guzman MD [address] [place] [address] PCP - General 08/16/13 documented as of this encounter
--- OUTSIDE RECORDS SUMMARY | 2024-11-04 13:53 | XMS_ITS | Encounter Summary ---
[place] [address] Care Team Providers Care Gamma Ray Operator Name Role Phone Bobbi Blum MD Primary Care Provider [phone] Reason for Visit * Reason Comments Follow-up Encounter Details Date Type Department Care Team (Late st Contact Info) Description 07/04/2013 4:00 PM EDT Office Visit Dermatology [facility] [address] [place], [place] [id number] Willie Field MD [address] [place] [address] RD, [place] [address] Psoriasiform dermatitis (Primary Dx) Social History Tobacco [...] disorders documented in this encounter Care Teams Gamma Ray Operator Relationship Specialty Start Date End Date Bobbi Blum MD HOSPITALIST SERVICES [address] [place] [address] [place] [address] PCP - General 10/01/12 08/15/13 documented as of this encounter
--- OUTSIDE RECORDS SUMMARY | 2024-11-04 13:53 | XMS_ITS | Encounter Summary ---
[place] [address] Care Team Providers Care International Guest Coordinator Name Role Phone Suzanne De Guzman MD Primary Care Provider [phone] Reason for Visit * Reason Comments Follow-up adenocarcinoma of br east Encounter Details Date Type Department Care Team (Late st Contact Info) Description 03/17/2014 2:30 PM EDT Follow-Up [address] [place] [address] Jesu Post MD Malignant neoplasm [...] resection and oophorectomy. She has been on half-way adjuvant therapy first with tamoxifenand supsequently Femara. [...] Primary documented in this encounter Care Teams International Guest Coordinator Relationship Specialty Start Date End Date Suzanne De Guzman MD [address] [place] [address] PCP - General 08/16/13 documented as of this encounter
--- OUTSIDE RECORDS SUMMARY | 2024-11-04 13:53 | XMS_ITS | Encounter Summary ---
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 I recommended CeraVe cream as a good emollient for her dry skin. d. Blood pressure today is 130/74. Return to the clinic in another month for repeat check. Hopefully at that time we will be able to start to taper the patient down on her cyclosporin dose. I reassured her about the safety profile of this medication. COPY: Bobbi Blum M.D. documented in this encounter Plan of Treatment Not on file documented as of this encounter Visit Diagnoses Diagnosis Psoriasis- Primary Other psoriasis documented in this encounter Care Teams Diet Aid Relationship Specialty Start Date End Date Bobbi Blum MD HOSPITALIST SERVICES [address] [place] [address] [place] [address] PCP - General 10/01/12 08/15/13 documented as of this encounter
--- OUTSIDE RECORDS SUMMARY | 2024-11-04 13:53 | XMS_ITS | Encounter Summary ---
[place] [address] Care Team Providers Care Molder Machine Name Role Phone Suzanne De Guzman MD Primary Care Provider [phone] Encounter Details Date Type Department Care Team (Late st Contact Info) Description 09/22/[address] [address] Jesu Post MD Malignant neoplasm [...] site documented in this encounter Care Teams Molder Machine Relationship Specialty Start Date End Date Suzanne De Guzman MD [address] [place] [address] PCP - General 08/16/13 documented as of this encounter
--- OUTSIDE RECORDS SUMMARY | 2024-11-04 13:53 | XMS_ITS | Encounter Summary ---
Author Organization [facility] [place] [address] Care Team Providers Care Furniture Restorer Name Role Phone Bobbi Blum MD Primary Care Provider [phone] Reason for Visit * Reason Comments Follow-up adenocarcinoma of br east Encounter Details Date Type Department Care Team (Late st Contact Info) Description 03/18/2013 10:00 AM EDT Follow-Up Hematology Oncology at [address] [address] Jesu Post MD Adenocarcinoma of [...] resection and oophorectomy. She has been on remote computer terminal operator adjuvant therapy first with tamoxifenand supsequently Femara. [...] unspecified documented in this encounter Care Teams Furniture Restorer Relationship Specialty Start Date End Date Bobbi Blum MD HOSPITALIST SERVICES [address] [place] [address] [place] [address] PCP - General 10/01/12 08/15/13 documented as of this encounter
--- OUTSIDE RECORDS SUMMARY | 2024-11-04 13:53 | XMS_ITS | Encounter Summary ---
Author Organization [facility] [place] [address] Care Team Providers Care Net Solutions Architect Name Role Phone Suzanne De Guzman MD Primary Care Provider [phone] Encounter Details Date Type Department Care Team (Late st Contact Info) Description 09/16/2013 3:00 PM EST Follow-Up Hematology Oncology at [address] [address] Jesu Post MD Adenocarcinoma of [...] resection and oophorectomy. She has been on mcfp adjuvant therapy first with tamoxifenand supsequently Femara. [...] Notes * Advance Care Plan Note - MariaM Mitchell RN - 09/16/2013 3:11 PM EST ADVANCE CARE PLANNING NOTE I. WHEN TO USE THIS FORM: This Advance Care Planning Note should be used for patients with decisional capacity who have not executed advance directives, such as a Durable Power of Test Skein Winder for Health Care. DETERMINATION OF CAPACITY The [...] Primary documented in this encounter Care Teams Net Solutions Architect Relationship Specialty Start Date End Date Suzanne De Guzman MD [address] [place] [address] PCP - General 08/16/13 documented as of this encounter
--- OUTSIDE RECORDS SUMMARY | 2024-11-04 13:53 | XMS_ITS | Encounter Summary ---
Author Organization [facility] [place] [address] Care Team Providers Care Dietary Services Director Name Role Phone Suzanne De Guzman MD Primary Care Provider [phone] Encounter Details Date Type Department Care Team (Latest Contact Info) Description 11/06/2016 11:00 AM EST Office Visit Hematology/Oncology at [address] [address] Iraida Zhou APRN Adenocarcinoma of [...] breast resection andoophorectomy. She has been on terminal gauger adjuvant therapy first with tamoxifen and supsequently [...] trying to care for her mother in [place] who has issues with dementia and there [...] nervous/anxious. Considerable stress over her mother in [place] Objective: Physical Exam Constitutional: She is oriented [...] her info [facility] Current Outpatient Prescriptions on File Prior to [...] left documented in this encounter Care Teams Dietary Services Director Relationship Specialty Start Date End Date Suzanne De Guzman MD [address] [place] [address] PCP - General 08/16/13 documented as of this encounter
--- OUTSIDE RECORDS SUMMARY | 2024-11-04 13:53 | XMS_ITS | Encounter Summary ---
[place] [address] Care Team Providers Care Block Paver Name Role Phone Suzanne De Guzman MD Primary Care Provider [phone] Reason for Visit * Reason Comments Skin Check Encounter Details Date Type Department Care Team (Late st Contact Info) Description 02/23/2014 4:00 PM EDT Office Visit Dermatology at [address] [phone] Willie Field MD [address] [facility], [place] [address] History of basal cell carcinoma (Primary Dx); [...] for her skin cancers, his departure from [employer] now has led her to seek skin [...] feet. 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 Examination of the face reveals no evidence [...] use a good emollient such as Bag Marble or even CeraVe cream, which she does [...] on Dr. Mckeon's treatments of her from [facility]. Return to clinic in one year for [...] disorders documented in this encounter Care Teams Block Paver Relationship Specialty Start Date End Date Suzanne De Guzman MD [address] [place] [address] PCP - General 08/16/13 documented as of this encounter
--- OUTSIDE RECORDS SUMMARY | 2024-11-04 13:53 | XMS_ITS | Encounter Summary ---
[place] [address] Care Team Providers Care Fast Food Crew Lead Name Role Phone Suzanne De Guzman MD Primary Care Provider [phone] Encounter Details Date Type Department Care Team (Late st Contact Info) Description 02/14/2015 Orders Only Hematology/Oncology at [address] [address] Iraida Zhou, PREFORM PLATE MAKER Social History Tobacco Use Types Packs/Day Years [...] on filedocumented in this encounter Care Teams Fast Food Crew Lead Relationship Specialty Start Date End Date Suzanne De Guzman MD [address] [place] [address] PCP - General 08/16/13 documented as of this encounter
--- OUTSIDE RECORDS SUMMARY | 2024-11-04 13:53 | XMS_ITS | Encounter Summary ---
[place] [address] Care Team Providers Care Group Therapy Counselor Name Role Phone Bobbi Blum MD Primary Care Provider [phone] Encounter Details Date Type Department Care Team (Late st Contact Info) Description 02/23/2013 Telephone Hematology [place] [phone] Delmy Bruner, [facility] Social History Tobacco Use Types Packs/Day Years [...] Notes * Telephone Encounter - Delmy Bruner, [place] - 02/24/2013 10:22 AM EDT I called Ligia to let her know that BRACAnalysis Rearrangement Test (JHONY), a test which looks for deletions, duplications and rearrangements in the BRCA1 and BRCA2 genes, [facility] negative or normal. I discussed the option of additional testing for other genes associated with a higher risk of breast cancer, such as CrossChx BreastNext Panel. We reviewed the benefits, risks [...] on filedocumented in this encounter Care Teams Group Therapy Counselor Relationship Specialty Start Date End Date Bobbi Blum MD HOSPITALIST SERVICES [address] [place] [address] [place] [address] PCP - General 10/01/12 08/15/13 documented as of this encounter
--- OUTSIDE RECORDS SUMMARY | 2024-11-04 13:53 | XMS_ITS | Encounter Summary ---
[place] [address] Care Team Providers Care Spine Nurse Name Role Phone Bobbi Blum MD Primary Care Provider [phone] Encounter Details Date Type Department Care Team (Late st Contact Info) Description 03/29/2013 Orders Only [place]ematology [place] [address] Jesu Post MD Social History Tobacco Use [...] Post MD G FILM LIBRARY ORD ERABLES [facility] [address] [place] [address] documented in this encounter Visit Diagnoses Not on filedocumented in this encounter Care Teams Spine Nurse Relationship Specialty Start Date End Date Bobbi Blum MD HOSPITALIST SERVICES [address] [place] [address] [place] [address] PCP - General 10/01/12 08/15/13 documented as of this encounter
--- OUTSIDE RECORDS SUMMARY | 2024-11-04 13:53 | XMS_ITS | Encounter Summary ---
Author Organization [place] [address] Care Team Providers Care Midwife Practitioner Name Role Phone Suzanne De Guzman MD Primary Care Provider [phone] Encounter Details Date Type Department Care Team (Latest Contact Info) Description 11/13/2017 11:15 AM EST Office Visit Hematology/Oncology at [address] [phone] Iraida Zhou APRN Adenocarcinoma of [...] breast resection andoophorectomy. She has been on intermediate adjuvant therapy first with tamoxifen and supsequently [...] trying to care for her mother in [place] who has issues with dementia and there [...] nervous/anxious. Considerable stress over her mother in [place] Objective: Physical Exam Constitutional: She is oriented [...] basal cell carcinoma Z85.828 Iraida Zhou, MSN, SYSTEMS INTEGRATION MANAGER, AOCN Hematology/Oncology Nurse Practitioner [place], [place] [phone] documented in this encounter Plan of Treatment Not on file documented as of this encounter Visit Diagnoses Diagnosis Adenocarcinoma of left breast documented in this encounter Care Teams Midwife Practitioner Relationship Specialty Start Date End Date Suzanne De Guzman MD [address] [place] [address] PCP - General 08/16/13 documented as of this encounter
--- OUTSIDE RECORDS SUMMARY | 2024-11-04 13:53 | XMS_ITS | Encounter Summary ---
Author Organization [facility] Address [facility] [place] [address] Care Team Providers Care Dinkey Operator Name Role Phone Suzanne De Guzman MD Primary Care Provider [phone] Reason for Visit * Reason Comments Genetic Evaluation BRCA1/2 genetic test ing, specifically JHONY BRACAnalysis Family History breast and other can cers Encounter Details Date Type Department Care Team (Late st Contact Info) Description 03/25/2011 3:30 PM EDT Follow-Up Hematology Oncology at [address] [phone] Arnold Pichardo MD [facility] [place] [address] Personal history of malignant neoplasm of breast; [...] Lara was seen by Sondra Bruner MS, [facility] and myself to advise regarding possible heritable [...] 46 BRCA1/2 negative Maternal ethnic background is [place]. Paternal ethnic background is [place]. Genetic risk assessment Based on personal and/or [...] for April 29, 2011 at 3:30PM at [facility] in [facility]. documented in this encounter Plan of Treatment Not on file documented as of this encounter Visit Diagnoses Diagnosis Personal history of malignant neoplasm of breast Family history of malignant neoplasm of breast documented in this encounter Care Teams Dinkey Operator Relationship Specialty Start Date End Date Suzanne De Guzman MD [address] [place] [address] PCP - General 08/27/10 09/30/12 documented as of this encounter
--- OUTSIDE RECORDS SUMMARY | 2024-11-04 13:53 | XMS_ITS | Encounter Summary ---
Author Organization [facility] [place] [address] Care Team Providers Care Separator Operator Shellfish Meats Name Role Phone Suzanne De Guzman MD Primary Care Provider [phone] Reason for Visit * Reason Comments Breast Cancer follow up 6 months Encounter Details Date Type Department Care Team (Late st Contact Info) Description 08/20/2011 10:00 AM EST Follow-Up Hematology Oncology at [address] [phone] Jesu Post MD Adenocarcinoma of [...] site documented in this encounter Care Teams Separator Operator Shellfish Meats Relationship Specialty Start Date End Date Suzanne De Guzman MD [address] [place] [address] PCP - General 08/27/10 09/30/12 documented as of this encounter
--- OUTSIDE RECORDS SUMMARY | 2024-11-04 13:53 | XMS_ITS | Encounter Summary ---
[place] [address] Care Team Providers Care Metal Trimmer Name Role Phone Unavailable Primary Care Provider Unavailabl e Encounter Details Date Type Department Care Team ([facility] Contact Info) Description 08/21/2010 3:00 PM EST Follow-Up [place] [address] Jesu Post MD Social History Tobacco Use [...]
--- OUTSIDE RECORDS SUMMARY | 2024-11-04 13:53 | XMS_ITS | Encounter Summary ---
[place] [address] Care Team Providers Care Wastewater Analyst Lab Analyst Name Role Phone Suzanne De Guzman MD Primary Care Provider [phone] Reason for Visit * Reason Onset Date Comments Medication Refill 10/30/2014 Encounter Details Date Type Department Care Team (Late st Contact Info) Description 10/30/[address] [place] [address] Jesu Post MD Malignant neoplasm [...] laterality documented in this encounter Care Teams Wastewater Analyst Lab Analyst Relationship Specialty Start Date End Date Suzanne De Guzman MD [address] [place] [address] PCP - General 08/16/13 documented as of this encounter
--- OUTSIDE RECORDS SUMMARY | 2024-11-04 13:53 | XMS_ITS | Encounter Summary ---
Author Organization [facility] [place] [address] Care Team Providers Care Steno Pool Supervisor Name Role Phone Suzanne De Guzman MD Primary Care Provider Reason for Visit * Reason Onset Date Comments Medication Refill 10/12/2013 Encounter Details Date Type Department Care Team (Late st Contact Info) Description 10/12/2013 Refill Hematology Oncology at [address] [phone] Mariajose Castellano RN Adenocarcinoma of [...] a refill on her femara sent to [facility] pharmacy. She usually gets 90 day supply per refill. She says that she is not out yet but just forgot to ask at her last appointment. documented in this encounter Plan of Treatment Not on file documented as of this encounter Visit Diagnoses Diagnosis Adenocarcinoma of breast- Primary Malignant neoplasm of breast (female), unspecified site documented in this encounter Care Teams Steno Pool Supervisor Relationship Specialty Start Date End Date Suzanne De Guzman MD [address] [place] [address] PCP - General 08/16/13 documented as of this encounter
--- OUTSIDE RECORDS SUMMARY | 2024-11-04 13:53 | XMS_ITS | Encounter Summary ---
[place] [address] Care Team Providers Care Railroad Construction Director Name Role Phone Suzanne De Guzman MD Primary Care Provider Encounter Details Date Type Department Care Team (Late st Contact Info) Description 04/05/2022 Telephone Hematology [place] [address] Raul Mckenzie MD Social History [...] scheduled for next week. Raul Mckenzie MD professional security officer in Hematology-Oncology documented in this encounter Plan of Treatment Not on file documented as of this encounter Visit Diagnoses Not on filedocumented in this encounter Care Teams Railroad Construction Director Relationship Specialty Start Date End Date Suzanne De Guzman MD [address] [place], [place] [address] PCP - General 08/16/13 documented as of this encounter
--- OUTSIDE RECORDS SUMMARY | 2024-11-04 13:53 | XMS_ITS | Encounter Summary ---
[place] [address] Care Team Providers Care Rail Signal Mechanic Name Role Phone Suzanne De Guzman MD Primary Care Provider [phone] Reason for Visit * Reason Comments Follow-up Encounter Details Date Type Department Care Team (Late st Contact Info) Description 08/16/2013 4:35 PM EST Office Visit Dermatology at [address] [address] Willie Field MD [address] [facility], [place] [address] Psoriasiform dermatitis (Primary Dx) Social History Tobacco [...] disorders documented in this encounter Care Teams Rail Signal Mechanic Relationship Specialty Start Date End Date Suzanne De Guzman MD [address] [place] [address] PCP - General 08/16/13 documented as of this encounter
--- OUTSIDE RECORDS SUMMARY | 2024-11-04 13:53 | XMS_ITS | Encounter Summary ---
[place] [address] Care Team Providers Care Parts Counter Clerk Name Role Phone Bobbi Blum MD Primary Care Provider [phone] Reason for Visit * Reason Comments Skin Check Encounter Details Date Type Department Care Team (Late st Contact Info) Description 03/22/2013 3:45 PM EDT Office Visit Dermatology [address] [facility] [address] [place], [place] [id number] Willie Field MD [address] [place] [address] RD, [place] [address] Psoriasiform dermatitis (Primary Dx) Social History Tobacco [...] aware of. 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 There has been no [...] disorders documented in this encounter Care Teams Parts Counter Clerk Relationship Specialty Start Date End Date Bobbi Blum MD HOSPITALIST SERVICES [address] [place] [address] [place] [address] PCP - General 10/01/12 08/15/13 documented as of this encounter
--- OUTSIDE RECORDS SUMMARY | 2024-11-04 13:53 | XMS_ITS | Encounter Summary ---
Author Organization [facility] [place] [address] Care Team Providers Care Paperboard Boxes Estimator Name Role Phone Bobbi Blum MD Primary Care Provider [phone] Reason for Visit * Reason Comments Follow-up Genetic testing Encounter Details Date Type Department Care Team ([facility] Contact Info) Description 02/16/2013 8:30 AM EDT Follow-Up H[place]ology [place] [phone] John Wilson MD Adenocarcinoma of breast (Primary [...] of this encounter Progress Notes * John Wilson MD - 02/22/2013 8:00 PM EDT On February 16, 2013, we readdressed the option of additional genetic testing for BRCA1 and BRCA2, specifically the BRACAnalysis Rearrangement Test (JHONY), including review of the risks, benefits, and limitations of currently available techniques. Understanding the possible outcomes and their limitations, Ligia decided to pursue testing. Ligia's blood was drawn and sent to [facility] for JHONY BRACAnalysis. Subsequently, we formulated a plan in regards to Ligia's test result disclosure. Nalini Fuller, our program hospice patient care secretary, will contact Ligia in the near [...] breast documented in this encounter Care Teams Paperboard Boxes Estimator Relationship Specialty Start Date End Date Bobbi Blum MD HOSPITALIST SERVICES [address] [place] [address] [place] [address] PCP - General 10/01/12 08/15/13 documented as of this encounter
--- OUTSIDE RECORDS SUMMARY | 2024-11-04 13:53 | XMS_ITS | Encounter Summary ---
[place] [address] Care Team Providers Care Assembly Line Brazer Name Role Phone Bobbi Blmu MD Primary Care Provider [phone] Reason for Visit * Reason Comments Follow-up Encounter Details Date Type Department Care Team (Late st Contact Info) Description 05/19/2013 3:00 PM EDT Office Visit Dermatology [address] [facility] [address] [place], [place] [id number] Willie Field MD [address] [place] [address] RD, [place] [address] Psoriasiform dermatitis (Primary Dx) Social History Tobacco [...] disorders documented in this encounter Care Teams Assembly Line Brazer Relationship Specialty Start Date End Date Bobbi Blum MD [facility] [address] [place] [address] [place] [address] PCP - General 10/01/12 08/15/13 documented as of this encounter
--- OUTSIDE RECORDS SUMMARY | 2024-11-04 13:53 | XMS_ITS | Encounter Summary ---
[place] [address] Care Team Providers Care Community Artist Name Role Phone Bobbi Blum MD Primary Care Provider [phone] Encounter Details Date Type Department Care Team (Late st Contact Info) Description 02/10/2011 Orders Only Hematology [place] [address] Jesu Post MD Social History Tobacco Use [...] Post MD IMG FILM LIBRARY ORD ERABLES [facility] [address] [facility] [place] [address] documented in this encounter Visit Diagnoses Not on filedocumented in this encounter Care Teams Community Artist Relationship Specialty Start Date End Date Bobbi Blum MD [facility] [address] [place] [address] [place] [address] PCP - General 10/01/12 08/15/13 documented as of this encounter
--- OUTSIDE RECORDS SUMMARY | 2024-11-04 13:53 | XMS_ITS | Encounter Summary ---
[place] [address] Care Team Providers Care Preassembler And Inspector Name Role Phone Suzanne De Guzman MD Primary Care Provider Reason for Visit * Reason Onset Date Comments Results 03/07/2011 Discuss amended BRCA1/2 test result Encounter Details Date Type Department Care Team (Late st Contact Info) Description 03/07/2011 Telephone [place]ematology [place] [id number] Delmy Bruner, [facility] Results (Discuss amended BRCA1/2 test result) Social History Tobacco Use Types Packs/Day Years Used Date Smoking Tobacco: Former Cigarettes Q uit: 02/26/1990 Sex and Gender Information Value Date Recorded Sex Assigned at Not on file Gender Identity Not on file Sexual Orientation Not on file documented as of this encounter Miscellaneous Notes * Telephone Encounter - Delmy Bruner, MD - 03/10/2011 2:13 PM EDT I informed Ligia that I received updated information in regard to her BRCA1 and BRCA2 genetic test result. Below is an explanation of the new information and its implications. Ligia is welcome to contact us at [phone] with any questions or concerns. Initially, Ligia's [...] not be comp letely sure. Since then, [facility] has completed additional studies concluding that this [...] on filedocumented in this encounter Care Teams Preassembler And Inspector Relationship Specialty Start Date End Date Suzanne De Guzman MD [address] [place] [address] PCP - General 08/27/10 09/30/12 documented as of this encounter
--- OUTSIDE RECORDS SUMMARY | 2024-11-04 13:53 | XMS_ITS | Encounter Summary ---
Author [facility] [place] [address] Care Team Providers Care Bright Cutter Name Role Phone Suzanne De Guzman MD Primary Care Provider [phone] Encounter Details Date Type Department Care Team (Late st Contact Info) Description 04/13/2015 3:15 PM EDT Follow-Up Hematology/Oncology at [address] [phone] Iraida Zhou, LOC Adenocarcinoma of [...] this encounter Progress Notes * Iraida Zhou, PIPE ORGAN BUILDER - 04/13/2015 3:17 PM EDT Images from [...] breast resection andoophorectomy. She has been on watermaster adjuvant therapy first with tamoxifen and supsequently [...] laterality documented in this encounter Care Teams Bright Cutter Relationship Specialty Start Date End Date Suzanne De Guzman MD [address] [place] [address] PCP - General 08/16/13 documented as of this encounter
--- OUTSIDE RECORDS SUMMARY | 2024-11-04 13:53 | XMS_ITS | Encounter Summary ---
Author Organization [facility] [place] [address] Care Team Providers Care Employment Instructional Associate Name Role Phone Suzanne De Guzman MD Primary Care Provider [phone] Reason for Visit * Reason Onset Date Comments Questions 04/16/2016 Encounter Details Date Type Department Care Team (Late st Contact Info) Description 04/16/2016 Telephone Hematology Oncology at [address] [phone] Dagmar Rizvi I, RN Questions [...] AM EDT Received Edh message from clinical attendance secretary ?? Patient called about a prescription. [...] we can [place] 2[place] [facility] [place] to talk about it. . Placed call to patient . Left above message with request for call back on identified VM. documented in this encounter Plan of Treatment Not on file documented as of this encounter Visit Diagnoses Not on filedocumented in this encounter Care Teams Employment Instructional Associate Relationship Specialty Start Date End Date Suzanne De Guzman MD [address] [place] [address] PCP - General 08/16/13 documented as of this encounter
--- OUTSIDE RECORDS SUMMARY | 2024-11-04 13:53 | XMS_ITS | Encounter Summary ---
Author Organization [facility] [place] [address] Care Team Providers Care Rail Track Layer Name Role Phone Suzanne De Guzman MD Primary Care Provider [phone] Reason for Visit * Reason Comments Breast Cancer follow up Encounter Details Date Type Department Care Team (Late st Contact Info) Description 02/16/2012 3:00 PM EDT Follow-Up Hematology Oncology at [address] [phone] Cornelia Bartlett, CHEMICAL STRENGTH TESTER Adenocarcinoma of breast (Primary Dx) Discharge Disposition: [...] this encounter Progress Notes * Cornelia Bartlett, CHEMICAL STRENGTH TESTER - 02/16/2012 3:12 PM EDT Hematology/Oncology Outreach Clinic [facility] ESTABLISHED PATIENT EVALUATION: Following adjuvant chemotherapy she underwent prophyllactic breast resection and oophorectomy. She has been on mcc adjuvant therapy first with tamoxifen and supsequently [...] site documented in this encounter Care Teams Rail Track Layer Relationship Specialty Start Date End Date Suzanne De Guzman MD [address] [place] [address] PCP - General 08/27/10 09/30/12 documented as of this encounter
--- OUTSIDE RECORDS SUMMARY | 2024-11-04 13:53 | XMS_ITS | Encounter Summary ---
Author Organization [place] [address] Care Team Providers Care Community Associate Name Role Phone Suzanne De Guzman MD Primary Care Provider [phone] Encounter Details Date Type Department Care Team (Latest Contact Info) Description 11/08/2015 11:45 AM EST Office Visit Hematology/Oncology at [address] [phone] Marie Cornejo APRN Adenocarcinoma of [...] resection andoophorectomy. She has been on buttermaker helper adjuvant therapy first with tamoxifen and supsequently [...] trying to care for her mother in [place] who had an IN. Overall she has been very healthy except [...] left documented in this encounter Care Teams Community Associate Relationship Specialty Start Date End Date Suzanne De Guzman MD [address] [place] [address] PCP - General 08/16/13 documented as of this encounter
== END 2024-11-04 13:51 | disposition home or self-care (01) ==
LOC: NCHCN 13:50
PROVIDERS: PCP Family Medicine; Visit Provider Family Medicine
DX: L82.1 Other seborrheic keratosis (principal); C44.519 Basal cell carcinoma of skin of other part of trunk
CPT/HCPCS: 88305